=== PATIENT | male | born 1960 | race Caucasian/White ===

== ENCOUNTER 2019-03-03 13:47 | Inpatient (IN) ==
[2019-03-03 14:37] LABS: Basophils # (auto) 0.07 K/uL (0-0.2); Eosinophils % (auto) 1.5 %; Hematocrit (blood only) 41.8 % (42-52); Hemoglobin 14.5 g/dL (14.0-18.0); Immature Granulocytes # (auto) 0.06 K/uL (0.00-0.02); Immature Granulocytes % (auto) 0.9 %; Lymphocytes # (auto) 2.47 K/uL (1.2-3.4); Lymphocytes % (auto) 36.3 %; Mean Corpuscular Hgb Conc 34.7 g/dL (32-36); Mean Corpuscular Volume 94.1 fL (80-100); Mean Platelet Volume 10.3 fL (7.4-10.4); Monocytes # (auto) 0.46 K/uL (0.11-0.59); Monocytes % (auto) 6.8 %; Neutrophils # (auto) 3.65 K/uL (1.4-6.5); Neutrophils % (auto) 53.5 %; Platelet Count 162 K/uL (130-400); RDW Coefficient of Variation 13.7 % (11.5-14.5); RDW Standard Deviation 46.8 fL (36.4-46.3); Red Blood Count 4.44 M/uL (4.7-6.1); White Blood Count 6.81 K/uL (4.8-10.8)
--- NOTE | 2019-03-03 14:47 | XRay Report ---
XR chest 1V portable HISTORY: Atypical Chest Pain COMPARISON: None. FINDINGS: Questionable 1 cm left retrocardiac nodule. Otherwise, the lungs are clear. No pleural effu sions. No pneumothorax. Old, healed left-sided rib fractures. The heart is top normal in size. IMPRESSION: 1. No acute process within the chest. 2. Questionable 1 cm left retrocardiac nodule. Follow-up PA and lateral views of the chest or chest C T are recommended for further evaluation to exclude a pulmonary lesion. Electronically signed by: Bigg Weaver M.D. 03/03/2019 2:46 PM
[2019-03-03 14:56] LABS: Partial Thromboplastin Ratio 0.9; Partial Thromboplastin Time 23.7 Seconds (21.0-31.0); Prothrombin Time 10.5 Seconds (9.0-12.0)
[2019-03-03 14:57] LABS: BUN Creatinine Ratio 17.2 (10-20); Blood Urea Nitrogen 14 mg/dl (7-18); Calcium 8.9 mg/dl (8.5-10.1); Carbon Dioxide 23 mmol/L (21-32); Chloride 110 mmol/L (98-107); Creatinine Clr Calc Pharmacy 118.8 ml/min; Est GFR (African American) 113.9; Est GFR (Non-African American) 98.3; Glucose 152 mg/dl (70-99); Potassium 3.9 mmol/L (3.5-5.1); Sodium 142 mmol/L (136-145)
[2019-03-03 15:02] LABS: Troponin I < 0.015 ng/ml (0-0.045)
--- NOTE | 2019-03-03 15:05 | CT Scan Report ---
CT SCAN OF THE BRAIN WITHOUT IV CONTRAST CLINICAL HISTORY: Fall. COMPARISON STUDY: No priors. TECHNIQUE: Unenhanced axial CT scan of the brain is performed from the vertex to the skull base. A do se lowering technique was utilized adhering to the principles of ALARA. CT DOSE: 537.48 mGy.cm FINDINGS: Brain parenchyma: There is minimal subcortical and periventricular microangiopathic change. Chronic l acunar infarcts are identified in the basal ganglia bilaterally. There is no hemorrhage, mass effect, or evidence of acute territorial ischemia by CT criteria. Cervantes-white matter differentiation is prese rved. No extra-axial fluid collection is seen. Ventricles, sulci, cisterns: Normal in configuration. Intracranial vasculature: There is atherosclerotic calcification of the cavernous carotid arteries. Calvarium: Unremarkable. Sinuses and mastoids: There is evidence of previous paranasal sinus surgery. The visualized paranasal sinuses are clear. The mastoid air cells are well pneumatized. Orbits: The bony orbits are grossly intact. IMPRESSION: There is no hemorrhage, mass effect, or evidence of acute territorial ischemia by CT gerber baron. Electronically signed by: Clovis Randhawa M.D. 03/03/2019 3:04 PM
[2019-03-03 15:13] LABS: D Dimer 740 ug/L FEU (0-500)
[2019-03-03] MEDS ORDERED: OPTIRAY 320 125ml IV PRN (16:15)
--- NOTE | 2019-03-03 16:22 | CT Scan Report ---
CT ANGIOGRAM OF THE CHEST CLINICAL HISTORY: Shortness of breath. Atypical chest pain. Suspected pulmonary embolism. ABNORMAL CH EST X-RAY. RETROCARDIAC NODULE. COMPARISON STUDY: Chest x-ray dated 03/03/2019 TECHNIQUE: Following the IV administration of mL of Optiray-320, CT angiogram of the thorax was perfo rmed from the thoracic inlet to the lung bases utilizing the pulmonary embolus protocol. Images are r eviewed in the axial, sagittal, and coronal planes. IV contrast was administered without complication . MIP imaging was performed. A dose lowering technique was utilized adhering to the principles of AL GREG. CT DOSE: 637.09 mGy.cm FINDINGS: There are suspected early cirrhotic changes within the liver. Mediastinal lymph nodes are the upper limits of normal in size. There is no pathologic axillary or hi lar lymphadenopathy. There are coronary artery calcifications. There was no evidence of thoracic aortic dilatation. There were no pulmonary artery filling defects to indicate acute pulmonary embolism. No pleural effusions are visualized. There was no evidence of focal pulmonary consolidation. IMPRESSION: 1. No acute intrathoracic findings 2. No evidence of acute pulmonary embolism 3. No evidence of acute parenchymal consolidation 4. No retrocardiac masses are visualized 5. Possible early hepatic cirrhosis Electronically signed by: Sin Roca M.D. 03/03/2019 4:21 PM
[2019-03-03] MEDS ORDERED: NITROGLYCERIN SL 0.4 MG/TAB TAB SL STA (17:06)
[2019-03-03] MEDS ORDERED: MoRPHine SULFATE 2 MG/ML CARP IV STA (17:07)
[2019-03-03] MEDS ORDERED: NITROGLYCERIN SL 0.4 MG/TAB TAB SL PRN (17:08)
[2019-03-03] MEDS ORDERED: NITROGLYCERIN SL 0.4 MG/TAB TAB ONE (17:14)
--- NOTE | 2019-03-03 17:28 | History & Physical Report ---
Date of Service March 03, 2019 Assessment & Plan (1) Chest pain: -This is a 58 year old M patient who reports history of coronary artery disease with 3 stents 10 years ago at [facility] and diagnosed with prostate cancer at least 2 years and also followed with [facility] and because he was told of overall poor prostate cancer, the patient became depressed and stopped taking his cardiovascular medications for at least more than 1 year. Patient has not been following with any clinic outpatient doctors. He came to the emergency room because of shortness of breath and chest pain especially on exertion. In the Emergency room, patient had elevate D-dimer but CTA of the chest did not find evidence for pulmonary embolism. Initial troponin negative and EKG normal sinus rhythm and nonischemic. Emergency room physician endorsed to hospitalist physician that patient should be rule out acute coronary syndrome. When assessed by hospitalist, patient then reported chest pain at rest on the bed during interview. Hospitalist ordered nitro sublingual and morphine but before that was given, the patient reported that the pain resolved. 2nd EKG normal and nonischemic. -Patient is a rather poor historian. He cannot tell the medications he was taking in the past. He reports that he has been having shortness of breath and chest pains on and off for 10 years but today it was worse and that is why he came to the hospital. He is breathing on room air. He has bilateral lower extremity edema. -trend troponins, monitor on telemetry -start Lasix 40 mg IV BID -give nitro or morphine prn if chest pain -obtain Transthoracic echocardiogram -discussed with Dr. Keys of Cardiology that if troponins are elevated, then heparin drip should be started -may need to obtain records from [facility] Prostate Cancer -in the past patient reports he follows at [facility] -he reports this is poor prognosis of prostate cancer -monitor urination for now while on Lasix IV without granados Depression leading to medical nonadherence -will ask psychiatry consult, patient agrees to assessment -unclear of alcohol use as outpatient, monitor in case of alcohol withdrawal Blood per rectum -as per patient -send FOBT, monitor Hgb DVT ppx: Lovenox for now Code Status of DNR/DNI as discussed with the patient I, Dr. Tuan Gandara, is admitting hospitalist. My colleague hospitalist Dr. Benson will follow the patient starting on 03/04/19 History of Present Illness This is a 58 year old M patient who reports history of coronary artery disease with 3 stents 10 years ago at [facility] and diagnosed with prosta te cancer at least 2 years and also followed with [facility] and because he was told of overall poor prostate cancer, the patient became depressed and stopped taking his cardiovascular medications for at least more than 1 year. Patient has not been following with any clinic outpatient doctors. He came to the emergency room because of shortness of breath and chest pain especially on exertion. In the Emergency room, patient had elevate D-dimer but CTA of the chest did not find evidence for pulmonary embolism. Initial troponin negative and EKG normal sinus rhythm and nonischemic. Emergency room physician endorsed to hospitalist physician that patient should be rule out acute coronary syndrome. When assessed by hospitalist, patient then reported chest pain at rest on the bed during interview. Hospitalist ordered nitro sublingual and morphine but before that was given, the patient reported that the pain resolved. 2nd EKG normal and nonischemic. Patient is a rather poor historian. He cannot tell the medications he was taking in the past. He reports that he has been having shortness of breath and chest pains on and off for 10 years but today it was worse and that is why he came to the hospital. He is breathing on room air. He has bilateral lower extremity edema. No reported vomiting of fever or headache or loss of consciousness Patient reports due to prostate problems it takes him long time to empty bladder. Denies blood in urine but then he reports blood in stool Primary Care Provider: NO PCP Allergies Allergy/AdvReac Type Severity Reaction Status Date / Time No Known Allergies Allergy Verified 03/03/19 15:24 Home Medications Home Medications Medication Instructions Recorded Confirmed Type No Known Home Medications 03/03/19 03/03/19 History Past Med/Surg History Medical History No significant family history No significant medical problems No significant past medical history No significant past surgical history Prostate cancer Social History Preferred Language: Chadian Feels Safe at Home: No Smoking Status: Former smoker Review of Systems Review of Systems: All systems reviewed & are unremarkable except as noted in HPI & below Physical Exam Constitutional: + obese Eyes: PERRL, conjunctivae normal, anicteric sclerae EOM intact bilaterally ENMT: external ear and nose normal, oropharynx normal Neck: normal visual inspection Respiratory: normal respiratory effort, lungs clear to auscultation Cardiovascular: Rate/Rhythm: regular rate and regular rhythm Gastrointestinal (Abdomen): normal bowel sounds, soft, nontender, no hepatosplenomegaly Musculoskeletal: no cyanosis or clubbing, extremities motor strength 5/5 Head/Neck/Chest: normocephalic and head atraumatic Neurologic: PERRL, EOMI, accommodation nl, no face palsy, no dysarthria CN's II-XI intact bilaterally Psychiatric: A+Ox3, euthymic affect Results & Data Vital Signs (Past 12 Hours) Vital Signs Temp Pulse Pulse Resp BP BP Pulse Ox 03/03/19 17:00 75 24 151/83 H 96 03/03/19 16:30 78 20 109/55 L 94 03/03/19 16:00 72 20 123/45 L 93 03/03/19 15:30 80 25 H 113/73 95 03/03/19 15:04 85 24 130/80 94 03/03/19 14:38 90 20 117/91 94 03/03/19 14:11 94 03/03/19 14:08 94 03/03/19 13:51 37.6 C H 101 H 20 118/70 95
[2019-03-03] MEDS ORDERED: FUROSEMIDE 40 MG in SYRINGE 0 ML IV ONE (17:30)
--- NOTE | 2019-03-03 19:10 | Emergency Department Note ---
Entered by Yanira Wharton acting as a scribe for Federico Austin History of Present Illness General Chief complaint: Shortness of Breath/Dyspnea Stated complaint: ALCOHOL OVERDOSE, CANCER, SUSPECTED HEART ATTACK Time Seen by Provider: 03/03/19 14:08 Source: patient Limitations: no limitations History of Present Illness Provider complaint: Chest Pain Onset (ago): hour(s) Location: chest Radiation: extremity (+Left arm) Maximum Pain Intensity: 8 Current Pain Intensity: 7 Quality: + crushing Associated symptoms: + denies other symptoms (-coughing up blood), + shortness of breath and + other (+blood in stool, +left arm pain ) Treatments prior to arrival: none The patient is a 58 year old male who presents to the Emergency Room with complaints of chest pain that began in the morning prior to arrival while the patient was walking. The patient states that the pain is in the center of his chest and states that it radiates into his left arm. The patient describes his pain as crushing and rates his pain a 7/10 in severity upon arrival. The patient states that he has shortness of breath and blood in his stools. The patient d enies coughing up any blood. The patient states that he has not been taking his heart medications and denies taking nitroglycerin prior to arrival. The patient states that he was drinking prior to arrival and states that he drank 4 beers. The patient states that he is on blood thinners. The patient denies any recent long travels . The patient states that he has a history of prostate cancer. The patient denies smoking tobacco. Home Medications Home Medications Medication Instructions Recorded Confirmed Type No Known Home Medications 03/03/19 03/03/19 History Allergies Allergy/AdvReac Type Severity Reaction Status Date / Time No Known Allergies Allergy Verified 03/03/19 15:24 Past Med/Surg History Medical History No significant family history No significant medical problems No significant past medical history No significant past surgical history Prostate cancer Social History Preferred Language: Lithuanian Feels Safe at Home: No Smoking Status: Former smoker Review of Systems See HPI for pertinent positives & negatives. and A total of 10 systems reviewed and were otherwise negative Physical Exam Vital Signs Vital Signs - 24 hr 03/03/19 13:51 03/03/19 14:08 03/03/19 14:11 Temperature 37.6 C H Temperature Source Oral Sepsis Recent Fever Within 48 Hours No Sepsis New/Unexplained Change in Mental Status No Sepsis Action Taken by Nursing No Action Required Pulse Rate 101 H Pulse Rate [Apical] Pulse Rate from SpO2 Sensor Pulse Rhythm Regular Pulse Strength Normal Respiratory Rate 20 Respiratory Effort / Characteristics Non-Labored Spontaneous Respiratory Depth Normal Respiratory Pattern Regular Blood Pressure 118/70 Blood Pressure [Left Arm] Blood Pressure Mean 86 Blood Pressure Mean [Left Arm] Blood Pressure Position Sitting Blood Pressure Position [Left Arm] Pulse Oximetry 95 94 94 Oxygen Delivery Method Room Air Room Air Room Air 03/03/19 14:38 03/03/19 15:04 03/03/19 15:30 Temperature Temperature Source Sepsis Recent Fever Within 48 Hours Sepsis New/Unexplained Change in Mental Status Sepsis Action Taken by Nursing Pulse Rate 85 80 Pulse Rate [Apical] 90 Pulse Rate from SpO2 Sensor 87 81 Pulse Rhythm Pulse Strength Respiratory Rate 20 24 25 H Respiratory Effort / Characteristics Non-Labored Spontaneous Respiratory Depth Normal Respiratory Pattern Regular Blood Pressure 130/80 113/73 Blood Pressure [Left Arm] 117/91 Blood Pressure Mean 96 86 Blood Pressure Mean [Left Arm] 99 Blood Pressure Position Blood Pressure Position [Left Arm] Lying Pulse Oximetry 94 94 95 Oxygen Delivery Method Room Air Room Air Room Air 03/03/19 16:00 03/03/19 16:30 03/03/19 17:00 Temperature Temperature Source Sepsis Recent Fever Within 48 Hours Sepsis New/Unexplained Change in Mental Status Sepsis Action Taken by Nursing Pulse Rate 72 78 75 Pulse Rate [Apical] Pulse Rate from SpO2 Sensor 72 80 74 Pulse Rhythm Pulse Strength Respiratory Rate 20 20 24 Respiratory Effort / Characteristics Respiratory Depth Respiratory Pattern Blood Pressure 123/45 L 109/55 L 151/83 H Blood Pressure [Left Arm] Blood Pressure Mean 71 73 105 Blood Pressure Mean [Left Arm] Blood Pressure Position Blood Pressure Position [Left Arm] Pulse Oximetry 93 94 96 Oxygen Delivery Method Room Air Room Air Room Air 03/03/19 17:17 03/03/19 17:20 03/03/19 17:25 Temperature Temperature Source Sepsis Recent Fever Within 48 Hours Sepsis New/Unexplained Change in Mental Status Sepsis Action Taken by Nursing Pulse Rate 70 73 77 Pulse Rate [Apical] Pulse Rate from SpO2 Sensor 71 73 77 Pulse Rhythm Pulse Strength Respiratory Rate 21 27 H 25 H Respiratory Effort / Characteristics Respiratory Depth Respiratory Pattern Blood Pressure 138/82 145/84 H 141/79 H Blood Pressure [Left Arm] Blood Pressure Mean 100 104 99 Blood Pressure Mean [Left Arm] Blood Pressure Position Blood Pressure Position [Left Arm] Pulse Oximetry 95 93 92 Oxygen Delivery Method Room Air Room Air Room Air 03/03/19 17:31 03/03/19 17:35 03/03/19 17:41 Temperature Temperature Source Sepsis Recent Fever Within 48 Hours Sepsis New/Unexplained Change in Mental Status Sepsis Action Taken by Nursing Pulse Rate 87 80 71 Pulse Rate [Apical] Pulse Rate from SpO2 Sensor 89 79 71 Pulse Rhythm Pulse Strength Respiratory Rate 28 H 24 21 Respiratory Effort / Characteristics Respiratory Depth Respiratory Pattern Blood Pressure 144/52 H 105/49 L 113/51 L Blood Pressure [Left Arm] Blood Pressure Mean 82 67 71 Blood Pressure Mean [Left Arm] Blood Pressure Position Blood Pressure Position [Left Arm] Pulse Oximetry 92 92 95 Oxygen Delivery Method Room Air Room Air Room Air 03/03/19 17:46 03/03/19 18:00 03/03/19 18:30 Temperature Temperature Source Sepsis Recent Fever Within 48 Hours Sepsis New/Unexplained Change in Mental Status Sepsis Action Taken by Nursing Pulse Rate 75 69 70 Pulse Rate [Apical] Pulse Rate from SpO2 Sensor 74 69 70 Pulse Rhythm Pulse Strength Respiratory Rate 15 21 22 Respiratory Effort / Characteristics Respiratory Depth Respiratory Pattern Blood Pressure 92/54 L 118/53 L 130/51 L Blood Pressure [Left Arm] Blood Pressure Mean 66 74 77 Blood Pressure Mean [Left Arm] Blood Pressure Position Blood Pressure Position [Left Arm] Pulse Oximetry 93 92 94 Oxygen Delivery Method Room Air Room Air Room Air Physical Exam GENERAL: He is oriented to person, place, and time. He appears well-developed an d well-nourished. He does not appear distressed. HENT: Exam performed. - Head: Normocephalic and atraumatic. - Right Ear: External ear normal. No mastoid tenderness. - Left Ear: External ear normal. No mastoid tenderness. - Mouth/Throat: The oropharynx is clear and moist. No trismus in the jaw. No dental abscesses or uvula swelling. No oropharyngeal exudate or tonsillar abscesses. EYES: Conjunctivae and EOM are normal. Pupils are equal, round, and reactive to light. Right eye exhibits no discharge. Left eye exhibits no discharge. No scleral icterus. NECK: Normal range of motion. Neck supple. No JVD present. No spinous process tenderness present. No carotid bruit present. No rigidity. No tracheal deviation and normal range of motion present. No Brudzinski's sign and no Kernig's sign noted. CV: Normal rate, regular rhythm, normal heart sounds and intact distal pulses. There is no peripheral edema. Palpable radial pulses bue. PULM/CHEST: Effort normal and breath sounds normal. No respiratory distress. No stridor. He has no wheezes. He has no rales. - Chest Wall: He exhibits no tenderness. ABD: The abdomen is soft. Bowel sounds are normal. He has no distension. No mass is present. There is no tenderness. There is no rebound, no guarding, no Jesus's sign and no tenderness at McBurney's point. Rovsig negative MUSC/SKEL: Normal range of motion. There is no peripheral edema, tenderness or deformity. LYMPH: No cervical adenopathy. NEURO: He is alert and oriented to person, place, and time. He has normal strength. No cranial nerve deficit or sensory deficit. Coordination and gait normal. GCS eye subscore is 4. GCS verbal subscore is 5. GCS motor subscore is 6. cerbellar tests wnl. SKIN: Skin is warm and dry. He is not diaphoretic. PSYCH: He has a normal mood and affect. His behavior is normal. Judgment and thought content normal. Course 1409: The patient was evaluated in room A11A, and a complete history and physical examination were performed. 1500: I checked on the patient and updated him on his results. The patient's vital signs are stable. The patient's labs are within normal limits besides an elevated DDIMER. The patient will receive a CTA to rule out PE 1600: CTA of the chest within normal limits. The patient denies having any chest pain at this time. The patient states that he is still having some exertional dyspnea. I asked the patient if he would like to be monitored inpatient to rule out ACS and the patient stated that he would like to do that. I discussed the patient's case with Dr. Tuan Quinteros [facility] who accepts the patient for admission. The patient will be admitted for chest pain and dyspnea. The updated the patient on the treatment plan and he was in ag reement. The patient's vital signs and labs were within normal limits upon admission. Consultations Consultation #1: Dr. Tuan Quinteros [facility] Time: 16:00 Administered Medications Ioversol (Optiray 320 125ml) 100 ml IV ONCE PRN PRN Reason: Interaction Checking Stop: 03/07/19 16:14 Last Admin: 03/03/19 16:15 Dose: 100 ml Documented by: [id number] Discontinued Medications Morphine Sulfate (Morphine Sulfate) 2 mg IV NOW STA Stop: 03/03/19 17:08 Last Admin: 03/03/19 17:26 Dose: 2 mg Documented by: [id number] Nitroglycerin (Nitrostat) 0.4 mg SL NOW STA Stop: 03/03/19 17:07 Last Admin: 03/03/19 17:26 Dose: Not Given Documented by: [id number] Nitroglycerin (Nitrostat) Confirm Administered Dose 0.4 mg .ROUTE .STK-MED ONE Stop: 03/03/19 17:15 Last Admin: 03/03/19 17:17 Dose: 0.4 mg Documented by: [id number] Medical Decision Making Medical Records Attestation: I reviewed the patient's medical records. Home Medications Current Medication List: was personally reviewed by me Laboratory Data Attestation: I reviewed the patient's lab results. Result diagrams: 03/03/19 14:17 03/03/19 14:17 Lab Results 03/03/19 03/03/19 03/03/19 Range/Units 14:17 14:17 14:17 WBC 6.81 (4.8-10.8) K/uL RBC 4.44 L (4.7-6.1) M/uL Hgb 14.5 (14.0-18.0) g/dL Hct 41.8 L (42-52) % MCV 94.1 (80-100) fL MCH 32.7 (25-34) pg MCHC 34.7 (32-36) g/dL RDW Std Deviation 46.8 H (36.4-46.3) fL RDW Coeff of Steve 13.7 (11.5-14.5) % Plt Count 162 (130-400) K/uL MPV 10.3 (7.4-10.4) fL Immature Gran % (Auto) 0.9 % Neut % (Auto) 53.5 % Lymph % (Auto) 36.3 % [place] % (Auto) 6.8 % Eos % (Auto) 1.5 % Baso % (Auto) 1.0 % Immature Gran # (Auto) 0.06 H (0.00-0.02) K/uL Neut # (Auto) 3.65 (1.4-6.5) K/uL Lymph # (Auto) 2.47 (1.2-3.4) K/uL [place] # (Auto) 0.46 (0.11-0.59) K/uL Eos # (Auto) 0.10 (0-0.5) K/uL Baso # (Auto) 0.07 (0-0.2) K/uL PT 10.5 (9.0-12.0) Seconds INR 1.0 (0.9-1.1) APTT 23.7 (21.0-31.0) Seconds PTT Ratio 0.9 D-Dimer 740 H* (0-500) ug/L FEU Sodium 142 (136-145) mmol/L Potassium 3.9 (3.5-5.1) mmol/L Chloride 110 H (98-107) mmol/L Carbon Dioxide 23 (21-32) mmol/L Anion Gap 9.0 (3-11) BUN 14 (7-18) mg/dl Creatinine 0.79 (0.6-1.4) mg/dl Est Cr Clr Drug Dosing 118.8 ml/min Est GFR ( Amer) 113.9 Est GFR (Non-Af Amer) 98.3 BUN/Creatinine Ratio 17.2 (10-20) Glucose 152 H (70-99) mg/dl Calcium 8.9 (8.5-10.1) mg/dl Troponin I < 0.015 (0-0.045) ng/ml Lipase 203 (73-393) U/L 03/03/19 Range/Units 17:21 WBC (4.8-10.8) K/uL RBC (4.7-6.1) M/uL Hgb (14.0-18.0) g/dL Hct (42-52) % MCV (80-100) fL MCH (25-34) pg MCHC (32-36) g/dL RDW Std Deviation (36.4-46.3) fL RDW Coeff of Steve (11.5-14.5) % Plt Count (130-400) K/uL MPV (7.4-10.4) fL Immature Gran % (Auto) % Neut % (Auto) % Lymph % (Auto) % [place] % (Auto) % Eos % (Auto) % Baso % (Auto) % Immature Gran # (Auto) (0.00-0.02) K/uL Neut # (Auto) (1.4-6.5) K/uL Lymph # (Auto) (1.2-3.4) K/uL [place] # (Auto) (0.11-0.59) K/uL Eos # (Auto) (0-0.5) K/uL Baso # (Auto) (0-0.2) K/uL PT (9.0-12.0) Seconds INR (0.9-1.1) APTT (21.0-31.0) Seconds PTT Ratio D-Dimer (0-500) ug/L FEU Sodium (136-145) mmol/L Potassium (3.5-5.1) mmol/L Chloride (98-107) mmol/L Carbon Dioxide (21-32) mmol/L Anion Gap (3-11) BUN (7-18) mg/dl Creatinine (0.6-1.4) mg/dl Est Cr Clr Drug Dosing ml/min Est GFR ( Amer) Est GFR (Non-Af Amer) BUN/Creatinine Ratio (10-20) Glucose (70-99) mg/dl Calcium (8.5-10.1) mg/dl Troponin I < 0.015 (0-0.045) ng/ml Lipase (73-393) U/L Imaging Data Radiologist's Impression: Radiology results as stated below per my review and the radiologist's interpretation: XR chest 1V portable HISTORY: Atypical Chest Pain COMPARISON: None. FINDINGS: Questionable 1 cm left retrocardiac nodule. Otherwise, the lungs are clear. No pleural effusions. No pneumothorax. Old, healed left-sided rib fractures. The heart is top normal in size. IMPRESSION: 1. No acute process within the chest. 2. Questionable 1 cm left retrocardiac nodule. Follow-up PA and lateral views of the chest or chest CT are recommended for further evaluation to exclude a pulmonary lesion. Electronically signed by: Bigg Weaver M.D. 03/03/2019 2:[address] SCAN OF THE BRAIN WITHOUT IV CONTRAST CLINICAL HISTORY: Fall. COMPARISON STUDY: No priors. TECHNIQUE: Unenhanced axial CT scan of the brain is performed from the vertex to the skull base. A dose lowering technique was utilized adhering to the principles of ALARA. CT DOSE: 537.48 mGy.cm FINDINGS: Brain parenchyma: There is minimal subcortical and periventricular microangiopathic change. Chronic lacunar infarcts are identified in the basal ganglia bilaterally. There is no hemorrhage, mass effect, or evidence of acute territorial ischemia by CT criteria. Cervantes-white matter differentiation is preserved. No extra-axial fluid collection is seen. Ventricles, sulci, cisterns: Normal in configuration. Intracranial vasculature: There is atherosclerotic calcification of the cavernous carotid arteries. Calvarium: Unremarkable. Sinuses and mastoids: There is evidence of previous paranasal sinus surgery. The visualized paranasal sinuses are clear. The mastoid air cells are well pneumatized. Orbits: The bony orbits are grossly intact. IMPRESSION: There is no hemorrhage, mass effect, or evidence of acute territorial ischemia by CT criteria. Electronically signed by: Clovis Randhawa M.D. 03/03/2019 3:[address] ANGIOGRAM OF THE CHEST CLINICAL HISTORY: Shortness of breath. Atypical chest pain. Suspected pulmonary embolism. ABNORMAL CHEST X-RAY. RETROCARDIAC NODULE. COMPARISON STUDY: Chest x-ray dated 03/03/2019 TECHNIQUE: Following the IV administration of mL of Optiray-320, CT angiogram of the thorax was performed from the thoracic inlet to the lung bases utilizing the pulmonary embolus protocol. Images are reviewed in the axial, sagittal, and coronal planes. IV contrast was administered without complication. MIP imaging was performed. A dose lowering technique was utilized adhering to the principles of ALARA. CT DOSE: 637.09 mGy.cm FINDINGS: There are suspected early cirrhotic changes within the liver. Mediastinal lymph nodes are the upper limits of normal in size. There is no pathologic axillary or hilar lymphadenopathy. There are coronary artery calcifications. There was no evidence of thoracic aortic dilatation. There were no pulmonary artery filling defects to indicate acute pulmonary embolism. No pleural effusions are visualized. There was no evidence of focal pulmonary consolidation. IMPRESSION: 1. No acute intrathoracic findings 2. No evidence of acute pulmonary embolism 3. No evidence of acute parenchymal consolidation 4. No retrocardiac masses are visualized 5. Possible early hepatic cirrhosis Electronically signed by: Sin Roca M.D. 03/03/2019 4:21 PM ECG Data Attestation: I personally reviewed and interpreted this ECG as follows: Indication: SOB/dyspnea Rate (beats per minute): 97 Rhythm: sinus rhythm Findings: + other (QRS and QTC intervals within normal limits); no ST depression and no ST elevation Blood Pressure Blood Pressure Findings: Low blood pressure Blood Pressure Disposition: did not require urgent referral MDM Narrative 1409: The patient was evaluated in room A11A, and a complete history and physical examination were performed. 1500: I checked on the patient and updated him on his results. The patient's vital signs are stable. The patient's labs are within normal limits besides an elevated DDIMER. The patient will receive a CTA to rule out PE 1600: CTA of the chest within normal limits. The patient denies having any chest pain at this time. The patient states that he is still having some exertional dyspnea. I asked the patient if he would like to be monitored inpatient to rule out ACS and the patient stated that he would like to do that. I discussed the patient's case with Dr. Tuan Quinteros [facility] who accepts the patient for admission. The patient will be admitted for chest pain and dyspnea. The updated the patient on the treatment plan and he was in agreement. The patient's vital signs and labs were within normal limits upon admission. Impression & Plan Chest pain, Dyspnea Discharge Plan Visit Data Chief Complaint: Shortness of Breath/Dyspnea Stated Complaint: ALCOHOL OVERDOSE, CANCER, SUSPECTED HEART ATTACK ED Provider: Federico Austni Discharge Problem: Chest pain, Dyspnea Patient Disposition: Admitted As Inpatient Forms Stand Alone Forms: My Resolver Prescriptions Prescriptions: No Action No Known Home Medications RF: 0 Referrals Referrals: PCP,NO [Primary Care Provider] - Discharge Problem: Chest pain Qualifiers: Chest pain type: unspecified Qualified Code(s): R07.9 - Chest pain, unspecified Dyspnea Qualifiers: Dyspnea type: dyspnea on exertion Qualified Code(s): R06.09 - Other forms of dyspnea The scribe's documentation has been prepared under my direction and personally reviewed by me in its entirety. I confirm that the note above accurately reflects all work, treatment, procedures, and medical decision making performed by me.
[2019-03-03] MEDS: ENOXAPARIN INJ 40 MG/0.4 ML SYR SQ SCH (21:21)
[2019-03-04] MEDS: MoRPHine SULFATE 2 MG/ML CARP IV PRN ×3 (00:22→22:25)
[2019-03-04 06:28] LABS: Basophils # (auto) 0.05 K/uL (0-0.2); Basophils % (auto) 0.5 %; Eosinophils # (auto) 0.08 K/uL (0-0.5); Eosinophils % (auto) 0.8 %; Hematocrit (blood only) 43.2 % (42-52); Hemoglobin 15.2 g/dL (14.0-18.0); Immature Granulocytes # (auto) 0.03 K/uL (0.00-0.02); Immature Granulocytes % (auto) 0.3 %; Lymphocytes # (auto) 1.83 K/uL (1.2-3.4); Lymphocytes % (auto) 19.3 %; Mean Corpuscular Hgb Conc 35.2 g/dL (32-36); Mean Corpuscular Volume 94.9 fL (80-100); Mean Platelet Volume 10.3 fL (7.4-10.4); Monocytes # (auto) 0.83 K/uL (0.11-0.59); Monocytes % (auto) 8.7 %; Neutrophils # (auto) 6.67 K/uL (1.4-6.5); Neutrophils % (auto) 70.4 %; Platelet Count 139 K/uL (130-400); Platelet Estimate Decreased (Normal); RDW Coefficient of Variation 13.8 % (11.5-14.5); RDW Standard Deviation 47.2 fL (36.4-46.3); Red Blood Count 4.55 M/uL (4.7-6.1); White Blood Count 9.49 K/uL (4.8-10.8)
[2019-03-04 06:33] LABS: Alanine Aminotransferase 29 U/L (12-78); Albumin Level 3.5 gm/dl (3.4-5.0); Aspartate Aminotransferase 24 U/L (15-37); Blood Urea Nitrogen 19 mg/dl (7-18); Calcium 8.6 mg/dl (8.5-10.1); Carbon Dioxide 24 mmol/L (21-32); Chloride 105 mmol/L (98-107); Creatinine Clr Calc Pharmacy 120.3 ml/min; Est GFR (African American) 114.5; Est GFR (Non-African American) 98.8; Glucose 118 mg/dl (70-99); Magnesium 1.9 mg/dl (1.8-2.4); Potassium 3.8 mmol/L (3.5-5.1); Sodium 139 mmol/L (136-145)
[2019-03-04 06:38] LABS: Albumin Globulin Ratio 0.7 (0.9-2); Alkaline Phosphatase 179 U/L (45-117); Bilirubin,Total 0.6 mg/dl (0.2-1); Globulin 4.8 gm/dl (2.5-4.0); Total Protein 8.3 gm/dl (6.4-8.2); Troponin I < 0.015 ng/ml (0-0.045)
[2019-03-04] MEDS: FUROSEMIDE 40 MG in SYRINGE 0 ML IV SCH ×2 (07:59→20:47)
[2019-03-04 09:16] LABS: Appearance Urine Clear (Clear); Bilirubin Urine Negative (Negative); Blood Urine Negative (Negative); Color Urine Dark Yellow; Glucose Urine UA Negative (Negative); Ketones Urine Trace (Negative); Leukocyte Esterase Urine Negative (Negative); Nitrite Urine Negative (Negative); Protein Urine Negative (Negative); Specific Gravity Urine 1.032 (1.000-1.030); Urobilinogen Urine Negative (Negative)
[2019-03-04] MEDS ORDERED: METOPROLOL TARTRATE 25 MG TAB PO STA (10:28)
--- NOTE | 2019-03-04 10:33 | Cardiology Consultation ---
Date of Consultation March 04, 2019 Assessment & Plan (1) Chest pain: Patient with recent symptoms concerning for increasing angina pectoris with known coronary artery disease patient off all cardiac medications due to deliberate withdrawal. No signs of injury by EKG or cardiac enzymes preliminary echocardiogram with preserved to hyperdynamic LV systolic function Reinstitute guideline directed medical regimen. Add beta-emir, nitrates aspirin and MIRELLA inhibitor Hold diuretic after second dose this evening If symptoms persist after treatment will risk stratify to stress test versus repeat diagnostic cardiac catheterization. Prior medical records requested for review (2) Angina pectoris: (3) Hypertension: History of Present Illness Reason for Consultation: Angina pectoris Requesting Physician: Dr. Gandara Attending Physician: Kindra Benson History of Present Illness Patient is a 58-year-old male resident of [place], [place] currently staying with his son in [place]. He carries an underlying history of prior coronary disease with prior myocardial infarction and coronary stenting x3 (same setting) greater than 10 years past. Underlying medical problems include a history of hypertension hyperlipidemia and metastatic prostate carcinoma status post radiation therapy Patient presents now noting symptoms of several weeks duration of increasing exertional dyspnea edema and chest pressure with activity. He notes having been given the diagnosis of an incurable prostate carcinoma and and in a depressive response stopped all medications including cardiac medications several months past. Symptoms however progressed yesterday as described and he presented to emergency room with symptoms of worsening shortness of breath and chest pressure relieved with sublingual nitroglycerin. Initial EKGs cardiac enzymes are negative for ischemia or injury Patient denies currently fevers chills or productive cough. Weight has been trending upward. Has been aware of some peripheral edema worse over the last week's time. Notes no headache or visual changes though is having significant back and neck pain. Notes no overt hematuria but has had some urinary slowing. Does admit to blood in stools after radiation therapy. He denies history of prior rheumatic fever scarlet fever. Notes no history of congestive heart failure, obstructive sleep apnea though with patient noting sleep disruption Allergies Allergy/AdvReac Type Severity Reaction Status Date / Time No Known Allergies Allergy Verified 03/03/19 15:24 Home Medications Home Medications Medication Instructions Recorded Confirmed Type No Known Home Medications 03/03/19 03/03/19 History Patient History Medical History No significant family history No significant medical problems No significant past medical history No significant past surgical history Prostate cancer Social History Preferred Language: Divehi Communication Ability: Effective Expense Analyst Required: No Beliefs That Will Affect Care: None Current Living Situation: Family Feels Safe at Home: Yes Smoking Status: Former smoker Hx Alcohol Use: Yes Alcohol type: beer Hx Substance Use: No Review of Systems Review of Systems: All systems reviewed & are unremarkable except as noted in HPI & below Physical Exam Constitutional: WD/WN, vitals as above + obese Eyes: PERRL, conjunctivae normal, anicteric sclerae ENMT: external ear and nose normal, oropharynx normal Neck: trachea midline, no thyromegaly Thick Respiratory: normal respiratory effort Auscultation: + diminished lung sounds Cardiovascular: Rate/Rhythm: regular rate and regular rhythm Heart Sounds: normal S1 and normal S2; no gallop and no murmur Palpation: normal PMI Vessels: normal carotid upstroke and radial pulses present; no JVD and no carotid bruit Extremities: + edema (1+ bilateral lower extremity) Gastrointestinal (Abdomen): normal bowel sounds, soft, nontender, no hepatosplenomegaly Musculoskeletal: no cyanosis or clubbing, extremities motor strength 5/5 Skin: no rashes, warm and dry Neurologic: PERRL, EOMI, accommodation nl, no face palsy, no dysarthria Psychiatric: Orientation: alert and oriented x 3 Mood: + depressed mood Results & Data Vital Signs (Past 12 Hours) Vital Signs Temp Pulse Pulse Resp BP Pulse Ox 03/04/19 07:39 85 03/04/19 07:36 36.6 C 82 18 151/88 H 95 03/04/19 05:47 36.7 C 90 19 149/80 H 91 03/04/19 01:04 85 03/03/19 23:00 36.8 C 86 21 128/74 95 03/03/19 22:44 78 Laboratory Results Laboratory Results - last 24 hr 03/03/19 03/03/19 03/03/19 14:17 14:17 14:17 WBC 6.81 RBC 4.44 L Hgb 14.5 Hct 41.8 L MCV 94.1 MCH 32.7 MCHC 34.7 RDW Std Deviation 46.8 H RDW Coeff of Steve 13.7 Plt Count 162 MPV 10.3 Immature Gran % (Auto) 0.9 Neut % (Auto) 53.5 Lymph % (Auto) 36.3 Irion % (Auto) 6.8 Eos % (Auto) 1.5 Baso % (Auto) 1.0 Immature Gran # (Auto) 0.06 H Neut # (Auto) 3.65 Lymph # (Auto) 2.47 Irion # (Auto) 0.46 Eos # (Auto) 0.10 Baso # (Auto) 0.07 Platelet Estimate PT 10.5 INR 1.0 APTT 23.7 PTT Ratio 0.9 D-Dimer 740 H* Sodium 142 Potassium 3.9 Chloride 110 H Carbon Dioxide 23 Anion Gap 9.0 BUN 14 Creatinine 0.79 Est Cr Clr Drug Dosing 118.8 Est GFR ( Amer) 113.9 Est GFR (Non-Af Amer) 98.3 BUN/Creatinine Ratio 17.2 Glucose 152 H Calcium 8.9 Magnesium Total Bilirubin AST ALT Alkaline Phosphatase Troponin I < 0.015 Total Protein Albumin Globulin Albumin/Globulin Ratio Lipase 203 Urine Color Urine Appearance Urine pH Ur Specific [place] Urine Protein Urine Glucose (UA) Urine Ketones Urine Blood Urine Nitrite Urine Bilirubin Urine Urobilinogen Ur Leukocyte Esterase 03/03/19 03/03/19 03/04/19 17:21 23:14 05:20 WBC 9.49 RBC 4.55 L Hgb 15.2 Hct 43.2 MCV 94.9 MCH 33.4 MCHC 35.2 RDW Std Deviation 47.2 H RDW Coeff of Steve 13.8 Plt Count 139 MPV 10.3 Immature Gran % (Auto) 0.3 Neut % (Auto) 70.4 Lymph % (Auto) 19.3 [place] % (Auto) 8.7 Eos % (Auto) 0.8 Baso % (Auto) 0.5 Immature Gran # (Auto) 0.03 H Neut # (Auto) 6.67 H Lymph # (Auto) 1.83 Irion # (Auto) 0.83 H Eos # (Auto) 0.08 Baso # (Auto) 0.05 Platelet Estimate Decreased L PT INR APTT PTT Ratio D-Dimer Sodium Potassium Chloride Carbon Dioxide Anion Gap BUN Creatinine Est Cr Clr Drug Dosing Est GFR ( Amer) Est GFR (Non-Af Amer) BUN/Creatinine Ratio Glucose Calcium Magnesium Total Bilirubin AST ALT Alkaline Phosphatase Troponin I < 0.015 < 0.015 Total Protein Albumin Globulin Albumin/Globulin Ratio Lipase Urine Color Urine Appearance Urine pH Ur Specific [place] Urine Protein Urine Glucose (UA) Urine Ketones Urine Blood Urine Nitrite Urine Bilirubin Urine Urobilinogen Ur Leukocyte Esterase 03/04/19 03/04/19 05:20 08:45 WBC RBC Hgb Hct MCV MCH MCHC RDW Std Deviation RDW Coeff of Steve Plt Count MPV Immature Gran % (Auto) Neut % (Auto) Lymph % (Auto) [place] % (Auto) Eos % (Auto) Baso % (Auto) Immature Gran # (Auto) Neut # (Auto) Lymph # (Auto) [place] # (Auto) Eos # (Auto) Baso # (Auto) Platelet Estimate PT INR APTT PTT Ratio D-Dimer Sodium 139 Potassium 3.8 Chloride 105 Carbon Dioxide 24 Anion Gap 10.0 BUN 19 H Creatinine 0.78 Est Cr Clr Drug Dosing 120.3 Est GFR ( Amer) 114.5 Est GFR (Non-Af Amer) 98.8 BUN/Creatinine Ratio 24.0 H Glucose 118 H Calcium 8.6 Magnesium 1.9 Total Bilirubin 0.6 AST 24 ALT 29 Alkaline Phosphatase 179 H Troponin I < 0.015 Total Protein 8.3 H Albumin 3.5 Globulin 4.8 H Albumin/Globulin Ratio 0.7 L Lipase Urine Color Dark Yellow Urine Appearance Clear Urine pH 5.0 Ur Specific [place] 1.032 H Urine Protein Negative Urine Glucose (UA) Negative Urine Ketones Trace H Urine Blood Negative Urine Nitrite Negative Urine Bilirubin Negative Urine Urobilinogen Negative Ur Leukocyte Esterase Negative ECG Additional Comments: 04-MAR-2019 09:10:23 [facility] ROUTINE RETRIEVAL Sinus rhythm with Premature atrial complexes Otherwise normal ECG When compared with ECG of 03-MAR-2019 17:22, (unconfirmed) Premature atrial complexes are now Present (1) Chest pain Chest pain type: unspecified Qualified Code(s): R07.9 - Chest pain, unspecified
--- NOTE | 2019-03-04 10:39 | Hospitalist Progress Note ---
Date of Service March 04, 2019 Assessment & Plan (1) Chest pain: This is a 58 year old M patient who reports history of coronary artery disease with 3 stents 10 years ago at [facility] and diagnosed with prostate cancer at least 2 years and also followed with [facility] and because he was told of overall poor prostate cancer, the patient became depressed and stopped taking his cardiovascular medications for at least more than 1 year. Patient has not been following with any clinic outpatient doctors. He came to the emergency room because of shortness of breath and chest pain especially on exertion. STABLE ANGINA In setting of coronary artery disease with 3 stents in late 30s, stop taking all his medications 1 to 2 years ago and follow-ups with all physicians as got depressed with diagnosis of prostate cancer and treatment was not working per him. -EKG- No acute ischemic changes, Troponin x 4 negative. -Echo- Pending. -Will start him on cardiovascular medications per guidelines for CAD per cardiology -On IV lasix 40 mg bid since admission --> will cut down -Records from [facility] requested. Does not recall his medications PROSTATE CARCINOMA, Untreated and Lost to follow up -In the past patient reports he followed at [facility] , Cancer center -He reports that he was told he had poor prognosis and radiation/treatment was not effective and had side effects so decided to stop following up and stop all his medications. Do not have any records-requested. -CT chest- No mets, MRI spine ordered to rule out mets BACK PAIN Low back pain ongoing for many months. Concerned about metastasis with untreated prostate carcinoma as IV morphine not helping with the pain -MRI spine ordered DEPRESSION -Psychiatry was consulted -unclear of alcohol use as outpatient. CT shows early hepatic cirrhosis Blood per rectum ? -as per patient -FOBT sent DVT ppx: Lovenox for now Code Status of DNR/DNI as discussed with the patient Disposition Medical mx in progress Discussed case with cardiology Results & Data Vital Signs (Past 12 Hours) Vital Signs Temp Pulse Pulse Resp BP Pulse Ox 03/04/19 07:39 85 03/04/19 07:36 36.6 C 82 18 151/88 H 95 03/04/19 05:47 36.7 C 90 19 149/80 H 91 03/04/19 01:04 85 03/03/19 23:00 36.8 C 86 21 128/74 95 03/03/19 22:44 78
[2019-03-04] MEDS: ISOSORBIDE MONO EXTENDED REL 30 MG TABCR PO SCH (11:08)
[2019-03-04] MEDS ORDERED: OXYCODONE/ACETAMINOPHEN 5mg/325mg TAB ONE (11:38)
[2019-03-04] MEDS ORDERED: GADOBUTROL 65ML VIAL IV PRN (12:26)
--- NOTE | 2019-03-04 14:14 | Magnetic Resonance Report ---
MRI OF THE LUMBAR SPINE COMBO CLINICAL HISTORY: Prostate cancer. Low back pain and right lower extremity radiculopathy. COMPARISON STUDY: No priors. TECHNIQUE: MRI of the lumbar spine is performed utilizing various T1 and T2-weighted sequences in the axial and sagittal planes. Contrast-enhanced sequences are acquired following the IV administration of 10 cc of Gadavist. FINDINGS: Lumbar spine: Vertebral body height and alignment are maintained throughout the lumbar spine. There i s marked fatty marrow replacement seen within the body of L5 and the sacrum, likely related to previo us radiation treatment. The transverse and spinous processes appear intact. There is no evidence of s pondylolysis. No destructive bony lesion is seen. No enhancing lesions are seen on the postcontrast s equence. A large hemangioma is noted in the body of L1. Mild chronic degenerative endplate change is seen at all lumbar levels. No significant endplate edema is identified. Vertebral discs: Degenerative disc desiccation is seen at from L3-L4 through L5-S1. There is mild los s of height at L4-L5. Spinal cord: The visualized spinal cord is normal in morphology and signal intensity. The conus medul paulina terminates at the T12-L1 interspace. No abnormal postcontrast enhancement is identified. L1-L2: Unremarkable. L2-L3: Unremarkable. L3-L4: There is minimal posterior disc bulge and annular fissure. The central canal and neural forami na are patent. L4-L5: There is minimal posterior disc bulge. The central canal and neural foramina are patent. Facet joint effusions are observed. Mild facet arthropathy is of no consequence. L5-S1: There is no disc herniation or central canal stenosis. Mild facet arthropathy is of no consequ ence. The neural foramina are patent. Facet joint effusions are noted. Sacrum: As noted above, there is significant fatty marrow change seen within the sacrum. No destructi ve sacral lesion is identified. Soft tissues: The paraspinous soft tissues are normal in appearance. No retroperitoneal lymphadenopat hy is seen. There is mild ectasia of the distal abdominal aorta. IMPRESSION: 1. There is no disc herniation or central canal stenosis. 2. Minimal spondylotic change and degenerative disc disease as above. See discussion for detailed lev el by level analysis. 3. No destructive bony lesion is identified. 4. Fatty marrow change within the body of L5 and the sacrum suggests previous radiation treatment. Cl inical correlation will be required. Dictated: 03/04/2019 1:25 PM Transcribed: 03/04/2019 1:47 PM [facility] [id number] [facility] Electronically signed by: Clovis Randhawa M.D. 03/04/2019 2:13 PM
--- NOTE | 2019-03-04 16:00 | Psychiatric Consultation ---
Date of Consultation March 04, 2019 Impression / Recommendations Impression 58-year-old male admitted medically on 03/03/19 due to chest pain, shortness of breath, and blood in stool. He was reportedly diagnosed with prostate cancer at least 2 years ago, with what is reported to be a poor prognosis. It is stated that this diagnosis contributed to poor medication compliance with his cardiovascular medications. Pt does endorse depressive symptoms which have been ongoing for several years. Low mood and racing thoughts reportedly contribute to difficulty sleeping, one of the patient's other large concerns. Pt verbalized willingness for medication initiation. We reviewed possibility for mirtazapine, as a single medication to treat patient's current symptoms - however, patient reports increased appetite recently and concern for additional weight gain. We then reviewed the possibility of initiating fluoxetine in order to target depression, anxiety, and low energy. Risks, benefits, and potential side effects were reviewed with the patient. He verbalized understanding and is agreeable with plan to initiate 20mg tomorrow morning. Regarding difficulty sleeping, patient is agreeable to trial of hydroxyzine 50mg for sleep, and will offer repeat dose if necessary. Pt denies SI/HI, A/V hallucinations, and other psychotic symptoms. There is no indication for inpatient psychiatric treatment. We will facilitate arrangement of psychiatric aftercare as desired, as patient verbalizes willingness to consider referrals for psychiatric prescriber and therapist. Dr. Yaron Luna was directly involved in review and discussion of the patient's case and participated in medical decision making regarding treatment recommendations. Plan: - Initiate fluoxetine 20mg qAM - Initiate hydroxyzine 50mg qHS, with repeat dose available if needed - Facilitate referrals for psychiatric prescriber and therapist - No indication for inpatient psychiatric treatment Risk Factors Assessment Do You Have Access To A Gun?: No CPT Code Initial Consultation: [id number] Psych History Identifying Data Neto Rios is a 58-year-old male admitted medically on 03/03/19 due to chest pain, shortness of breath, and blood in his stools. Pt was diagnosed with prostate cancer at least two years ago, reportedly leading to poor compliance with his cardiovascular medications. Psychiatric consultation is requested to evaluate for depression. Chief Complaint "I came here for my heart, I was having chest pains." History of Present Illness Neto Rios is a 58-year-old male admitted medically on 03/04/19 due to chest pain and shortness of breath. Pt was diagnosed with prostate cancer at least two years ago, and was reportedly given a poor prognosis. It is reported patient has not been compliant with cancer treatments or with his cardiovascular medications. There is reported concern for depression, and whether this is contributing to noncompliance. Psychiatric consultation is requested to e valuate for depression. Pt states that he has had significant difficulty with his diagnosis, as he verbalizes having to watch his brother of cancer at the same age as the patient is now. Pt states he was told "the cancer was treatable, so they gave me 9 weeks of radiation and these hormone pills, and nothing change. I wish they would have told me it couldn't be cured before I spent so much time feeling like sh*t." Pt states he has been "depressed, ever since they couldn't cure me. I just gave up." Earlier in his diagnosis, he states he had experienced SI, resulting in taking a "hacksaw" to his wrist [showing this provider the transverse scars to his distal forearm], but "chickened out before the last cut." Pt states that he has not felt suicidal since, but does verbalize hopeles sness. Pt verbalizes depressive symptoms of low mood, anhedonia, decreased energy, limited motivation, increased appetite, and difficulty sleeping. Pt states he gets about 3-4 hours of sleep per night, and often finds himself struggling with racing thoughts that prevent a restful sleep. Pt states this has been the case for years. He states he had previously received Ambien for sleep, but found it ineffective for calming his racing thoughts. Pt does admit to use of alcohol to "cover up" his depression, reporting 10-15 alcoholic beverages per day (indicating this is drastically reduced from the time in which he was living independently in [place]). Pt now lives with his son in [place], and is not established with medical providers in the area. He is agreeable to taking psychiatric medications, and would be willing for referral for outpatient medication management and/or therapy. Past Psychiatric History Previous Psych History: None, has previously received medications to help with difficulty sleeping Current Psychiatric Diagnosis: None Outpatient Services: None Previous Psych Admissions: None Do You Have Access To A Gun?: No History of Previous Suicide Attempt: Yes (self-inflicted laceration, "chickened out before the last cut") Past Medication Trials: For sleeping difficulty - Ambien Allergies Allergy/AdvReac Type Severity Reaction Status Date / Time No Known Allergies Allergy Verified 03/03/19 15:24 Home Medications Home Medications Medication Instructions Recorded Confirmed Type No Known Home Medications 03/03/19 03/03/19 History Family History Father - alcoholism Substance Abuse History Pt verbalizes current alcohol intake of 10-15 beer per week - reports use in order to cover up depressive symptoms Personal History Living Arrangements: Home (with son, son's girlfriend + 3 children ) Born In: [place] Highest Grade Completed: Did Not Graduate High School (10th grade) Employment Status: Retired Marital Status: (x 2 years) Number Of Children: 2 children; son in [place], daughter in [place] Beliefs That Will Affect Care: None History of Legal Problems: Denies Psychological Trauma History Comment: Denies history of abuse; several losses - of both brothers and father Patient History Medical History No significant family history No significant medical problems No significant past medical history No significant past surgical history Prostate cancer Social History Preferred Language: Slovenian Communication Ability: Effective Transit Mixer 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 Required: No Beliefs That Will Affect Care: None Current Living Situation: Family Feels Safe at Home: Yes Smoking Status: Former smoker Hx Alcohol Use: Yes Alcohol type: beer Hx Substance Use: No Physical Exam Psychiatric: Orientation: alert, oriented x 3 and cooperative Apperance: appropriately dressed (in hospital gown), appropriately groomed and appeared stated age Eye Contact: good eye contact Motor Behavior: no abnormal motor movements (observed while laying in bed) Speech: normal rate/rhythm/volume of speech (somewhat monotone) Affect: + depressed affect Mood: + depressed mood ("Just really low, every since they first told me") Thought Process: goal directed thought process and clear/coherent thought process Thought Content: reality based without delusions Suicidal Thoughts: denies suicidal thoughts, denies suicidal plan and denies suicidal intent Homicidal Thoughts: denies homicidal thoughts Hallucinations: no auditory hallucinations and no visual hallucinations Cognition: attention grossly intact and language grossly intact Estimated Intelligence: consistent with education level Insight: + fair insight Judgement: + fair judgement Vital Signs (Past 24 Hours): Last Vital Signs Temp 36.4 C L 03/04/19 15:35 Pulse 61 03/04/19 15:35 Resp 20 03/04/19 15:35 BP 118/74 03/04/19 15:35 Pulse Ox 94 03/04/19 15:35 Review of Systems Constitutional: denied Cardiovascular: denied Respiratory: denied Gastrointestinal: denied Genitourinary: reports increased urinary frequency Neurological: reports difficulty concentrating Psychiatric: denies symptoms other than stated above Total of at least 10 systems reviewed, pertinent positives as above and in HPI. Results & Data Medications Administered Enoxaparin Sodium (Lovenox) 40 mg SQ Q24H [facility] Stop: 04/02/19 20:59 Last Admin: 03/03/19 21:21 Dose: 40 mg Documented by: [id number] Gadobutrol (Gadavist 65ml) 10 ml IV ONCE PRN PRN Reason: Interaction Checking Stop: 03/08/19 12:25 Last Admin: 03/04/19 12:27 Dose: 10 ml Documented by: [id number] Furosemide 40 mg/ Syringe 4 mls @ 4 mls/min IV BID ABBEY Stop: 04/03/19 08:59 Last Admin: 03/04/19 07:59 Dose: 4 mls/min Documented by: [id number] Ioversol (Optiray 320 125ml) 100 ml IV ONCE PRN PRN Reason: Interaction Checking Stop: 03/07/19 16:14 Last Admin: 03/03/19 16:15 Dose: 100 ml Documented by: [id number] Isosorbide Mononitrate (Imdur Extended Rel) 30 mg PO QAM [facility] Stop: 04/03/19 10:29 Last Admin: 03/04/19 11:08 Dose: 30 mg Documented by: [id number] Morphine Sulfate (Morphine Sulfate) 2 mg IV Q8H PRN PRN Reason: Severe Pain Stop: 03/17/19 17:20 Last Admin: 03/04/19 07:58 Dose: 2 mg Documented by: [id number] Admin: 03/04/19 00:22 Dose: 2 mg Documented by: [id number]
[2019-03-04] MEDS: OXYCODONE/ACETAMINOPHEN 5mg/325mg TAB PO PRN ×2 (16:58→20:47)
[2019-03-04] MEDS: METOPROLOL TARTRATE 25 MG TAB PO SCH (20:47)
[2019-03-04] MEDS: ENOXAPARIN INJ 40 MG/0.4 ML SYR SQ SCH (20:47)
[2019-03-05] MEDS: OXYCODONE/ACETAMINOPHEN 5mg/325mg TAB PO PRN (06:22)
[2019-03-05 06:28] LABS: Hematocrit (blood only) 42.6 % (42-52); Hemoglobin 14.9 g/dL (14.0-18.0); Mean Platelet Volume 10.4 fL (7.4-10.4); Platelet Count 148 K/uL (130-400); RDW Coefficient of Variation 13.7 % (11.5-14.5); RDW Standard Deviation 46.7 fL (36.4-46.3); Red Blood Count 4.58 M/uL (4.7-6.1); White Blood Count 8.51 K/uL (4.8-10.8)
[2019-03-05 06:55] LABS: BUN Creatinine Ratio 37.7 (10-20); Calcium 8.8 mg/dl (8.5-10.1); Creatinine Clr Calc Pharmacy 95.9 ml/min; Est GFR (African American) 100.4; Est GFR (Non-African American) 86.7; Potassium 3.4 mmol/L (3.5-5.1)
[2019-03-05 08:23] VITALS: O2SAT 94
[2019-03-05] MEDS: ISOSORBIDE MONO EXTENDED REL 30 MG TABCR PO SCH (08:36)
[2019-03-05] MEDS: METOPROLOL TARTRATE 25 MG TAB PO SCH (08:40)
[2019-03-05] MEDS: MoRPHine SULFATE 2 MG/ML CARP IV PRN (08:41)
[2019-03-05] MEDS ORDERED: ATORVASTATIN 20 MG TAB PO SCH (09:00)
[2019-03-05] MEDS ORDERED: LISINOPRIL 2.5 MG TAB PO SCH (09:00)
[2019-03-05] MEDS ORDERED: FLUOXETINE HCL 20 MG CAP PO SCH (09:00)
--- NOTE | 2019-03-05 10:30 | Cardiology Progress Note ---
Date of Service March 05, 2019 Assessment & Plan (1) Chest pain: Patient with recent symptoms concerning for increasing angina pectoris with known coronary artery disease patient off all cardiac medications due to deliberate withdrawal. No signs of injury by EKG or cardiac enzymes preliminary echocardiogram with preserved to hyperdynamic LV systolic function Guideline directed medical regimen has been begun with beta-emir, nitrates aspirin and MIRELLA inhibitor No further symptoms. Prior medical records not yet received however patient ambulatory in resendez without complaints. Other issues being addressed occluding depression. PSA low Recommendations: Patient to be discharged from cardiac standpoint on current medical regimen follow-up with cardiology Katia Sesay to 2-3 weeks time and will readdress for need for stress testing at that time. Urgent need for compliance with medication. Released for outpatient records are resubmitted (2) Angina pectoris: (3) Hypertension: Subjective Patient denies any cardiac complaints. Heart rate and blood pressure much better controlled. Ambulatory in the hallway without chest pain or discomfort with predominant limiting issue chronic back pain. Review of Systems Review of Systems: All systems reviewed & are unremarkable except as noted in HPI & below Physical Exam Constitutional: WD/WN, vitals as above + obese Eyes: PERRL, conjunctivae normal, anicteric sclerae ENMT: external ear and nose normal, oropharynx normal Neck: trachea midline, no thyromegaly Respiratory: normal respiratory effort Auscultation: + diminished lung sounds Cardiovascular: Rate/Rhythm: regular rate and regular rhythm Heart Sounds: normal S1 and normal S2; no gallop and no murmur Palpation: normal PMI Vessels: normal carotid upstroke and radial pulses present; no JVD and no carotid bruit Extremities: + edema (1+ bilateral lower extremity) Gastrointestinal (Abdomen): normal bowel sounds, soft, nontender, no hepatosplenomegaly Musculoskeletal: no cyanosis or clubbing, extremities motor strength 5/5 Skin: no rashes, warm and dry Neurologic: PERRL, EOMI, accommodation nl, no face palsy, no dysarthria Psychiatric: Orientation: alert and oriented x 3 Mood: + depressed mood Results & Data Vital Signs (Past 12 Hours) Vital Signs Temp Pulse Pulse Pulse Resp BP Pulse Ox 03/05/19 08:40 57 L 157/83 H 03/05/19 07:00 36.7 C 55 L 18 109/67 94 03/05/19 04:39 36.6 C 54 L 18 128/74 95 03/05/19 00:00 36.6 C 63 58 L 18 129/78 94 Laboratory Results Laboratory Results - last 24 hr 03/04/19 03/05/19 03/05/19 06:20 06:01 06:01 WBC 8.51 RBC 4.58 L Hgb 14.9 Hct 42.6 MCV 93.0 MCH 32.5 MCHC 35.0 RDW Std Deviation 46.7 H RDW Coeff of Steve 13.7 Plt Count 148 MPV 10.4 Sodium 136 Potassium 3.4 L Chloride 100 Carbon Dioxide 27 Anion Gap 9.0 BUN 36 H D Creatinine 0.95 Est Cr Clr Drug Dosing 95.9 Est GFR ( Amer) 100.4 Est GFR (Non-Af Amer) 86.7 BUN/Creatinine Ratio 37.7 H Glucose 100 H Calcium 8.8 Prostate Specific Ag < 0.010 (1) Chest pain Chest pain type: unspecified Qualified Code(s): R07.9 - Chest pain, unspecified
--- NOTE | 2019-03-05 12:06 | Hospitalist Progress Note ---
Date of Service March 05, 2019 Assessment & Plan (1) Chest pain: This is a 58 year old M patient who reports history of coronary artery disease with 3 stents 10 years ago at [facility] and diagnosed with prostate cancer at least 2 years and also followed with [facility] and because he was told of overall poor prostate cancer, the patient became depressed and stopped taking his cardiovascular medications for at least more than 1 year. Patient has not been following with any clinic outpatient doctors. He came to the emergency room because of shortness of breath and chest pain especially on exertion. CHEST PAIN Likely stable angina In setting of coronary artery disease with 3 stents in late 30s, stopped taking all his medications 1 to 2 years ago and follow-ups with all physicians as got depressed with diagnosis of prostate cancer and treatment was not working per him. -EKG- No acute ischemic changes, Troponin x 4 negative. -Echo- EF 65-70% , Mild LVH, Trace MR -Started him on Aspirin 81 mg, Atorvastatin 20 mg q HS, isosorbide mononitrate 30 mg daily, lisinopril 2.5 mg which will be increased to 5 mg daily, metoprolol tartrate 25 mg twice daily -Received Lasix IV 40 mg x 2 doses, no overt signs of CHF. -Records from [facility] requested. Does not recall his medications (Have not received records yet) -Cardiology on [id number] with cardiology in 2 to 3 weeks. Will consider outpatient stress test. Cleared for discharge PROSTATE CARCINOMA, Untreated and Lost to follow up -In the past patient reports he followed at [facility] , Cancer center -He reports that he was told he had poor prognosis and radiation/treatment was not effective and had side effects so decided to stop following up and stop all his medications. Do not have any records-requested. -PSA done here is <0.010 -CT chest- No mets, MRI lumbar spine ordered- No mets. -Patient is willing to follow up now for Prostate carcinoma. Need to establish care with cancer center LOW BACK PAIN Low back pain ongoing for many months. Concerned about metastasis with untreated prostate carcinoma as IV morphine not helping with the pain -MRI lumbar spine orderedno disc herniation or central canal stenosis, mild spondylotic changes and degenerative change. No meds noted. Fatty marrow change in L5 and sacrum suggestive of prior radiation treatment. -Percocet helping. Will give prescription for only 5 days and than f/up with PCP DEPRESSION -Psychiatry was consultedstarted on fluoxetine 20 mg, hydroxyzine 50 mg nightly and recommends follow-up outpatient -Unclear of alcohol use as outpatient. CT shows early hepatic cirrhosis Blood per rectum ? -as per patient -FOBT sent- uncollected -No overt signs of GI bleeding and HB stable, 14.9 -Follow up outpatient if continued concerns Medical nonadherence Patient stopped following with physicians, stopped all his medications midway of starting treatment for prostate carcinoma as he got depressed. Now motivated to start treatment again and follow-up DVT ppx: Lovenox SQ Code Status of DNR/DNI as discussed with the patient Disposition Cleared for discharge by cardiology. Eager to be discharged home. Discussed with pillowcase folder about establishing care with PCP and working for transportation as patient does not drive and son goes away for 2 weeks for work Subjective Patient is doing much better. Denies any chest pain or shortness of breath. Ambulating in the hallway without any symptoms. Back pain is much better. Eager to be discharged. Motivated to be more compliant and follow-up with physicians Physical Exam Physical Exam: GENERAL- AAOX3, No acute distress; OBESE + LUNGS- Air entry bilaterally equal. No rales, rhonchi, crackles, wheezes heard. HEART- Regular rate and rhythm. No murmurs ABDOMEN- Soft, non tender, non distended, Bowel sounds heard. EXTREMITIES- Good peripheral pulses, no edema Results & Data Vital Signs (Past 12 Hours) Vital Signs Temp Pulse Pulse Pulse Resp BP Pulse Ox 03/05/19 11:32 90 03/05/19 08:40 57 L 157/83 H 03/05/19 07:00 36.7 C 55 L 18 109/67 94 03/05/19 04:39 36.6 C 54 L 18 128/74 95 03/05/19 00:00 36.6 C 63 58 L 18 129/78 94
--- NOTE | 2019-03-05 12:12 | Discharge Summary ---
Date of Service March 05, 2019 Admission HPI Per Admitting Provider Neto Rios is a 58-year-old male admitted medically on 03/04/19 due to chest pain and shortness of breath. Pt was diagnosed with prostate cancer at least two years ago, and was reportedly given a poor prognosis. It is reported patient has not been compliant with cancer treatments or with his cardiovascular medications. There is reported concern for depression, and whether this is contributing to noncompliance. Psychiatric consultation is requested to evaluate for depression. Pt states that he has had significant difficulty with his diagnosis, as he verbalizes having to watch his brother of cancer at the same age as the patient is now. Pt states he was told "the cancer was treatable, so they gave me 9 weeks of radiation and these hormone pills, and nothing change. I wish they would have told me it couldn't be cured before I spent so much time feeling like sh*t." Pt states he has been "depressed, ever since they couldn't cure me. I just gave up." Earlier in his diagnosis, he states he had experienced SI, resulting in taking a "hacksaw" to his wrist [showing this provider the transverse scars to his distal forearm], but "chickened out before the last cut." Pt states that he has not felt suicidal since, but does verbalize hopelessness. Pt verbalizes depressive symptoms of low mood, anhedonia, decreased energy, limited motivation, increased appetite, and difficulty sleeping. Pt states he gets about 3-4 hours of sleep per night, and often finds himself struggling with racing thoughts that prevent a restful sleep. Pt states this has been the case for years. He states he had previously received Ambien for sleep, but found it ineffective for calming his racing thoughts. Pt does admit to use of alcohol to "cover up" his depression, reporting 10-15 alcoholic beverages per day ( indicating this is drastically reduced from the time in which he was living independently in [place]). Pt now lives with his son in [place], and is not established with medical providers in the area. He is agreeable to taking psychiatric medications, and would be willing for referral for outpatient medication management and/or therapy. Principal Diagnosis 1. Chest pain, likely stable angina 2. Prostate carcinoma, untreated and lost to follow-up 3. Chronic low back pain 4. Depression 5. Medical nonadherence Secondary diagnoses on discharge 1. Obesity Discharge Exam GENERAL- AAOX3, No acute distress; OBESE + LUNGS- Air entry bilaterally equal. No rales, rhonchi, crackles, wheezes heard. HEART- Regular rate and rhythm. No murmurs ABDOMEN- Soft, non tender, non distended, Bowel sounds heard. EXTREMITIES- Good peripheral pulses, no edema Discharge Data Allergies Allergy/AdvReac Type Severity Reaction Status Date / Time No Known Allergies Allergy Verified 03/03/19 15:24 Consultations 03/03/19 16:41 ED Decision to Admit Stat 03/03/19 17:30 Consult Cardiology Routine 03/03/19 17:44 Consult Psychiatry Routine 03/04/19 10:33 HIM [Consult Health Information Management] Stat Ordered Studies 03/03/19 14:16 CT head/brain wo con Stat 03/03/19 15:19 CT angio chest PE protocol Stat 03/04/19 10:19 MR lumbar spine wo/w con Routine Hospital Course (1) Chest pain: This is a 58 year old M patient who reports history of coronary artery [place] [facility] with [place] cancer at least 2 years and [place] [facility] because he was told of overall poor prostate cancer, the patient became depressed and stopped taking his cardiovascular medications for at least more than 1 year. Patient has not been following with any clinic outpatient doctors. He came to the emergency room because of shortness of breath and chest pain especially on exertion. CHEST PAIN Likely stable angina In setting of coronary artery disease with 3 stents in late 30s, stopped taking all his medications 1 to 2 years ago and follow-ups with all physicians as got depressed with diagnosis of prostate cancer and treatment was not working per him. -EKG- No acute ischemic changes, Troponin x 4 negative. -Echo- EF 65-70% , Mild LVH, Trace MR -Started him on Aspirin 81 mg, Atorvastatin 20 mg q HS, isosorbide mononitrate 30 mg daily, lisinopril 2.5 mg which will be increased to 5 mg daily, metoprolol tartrate 25 mg twice daily -Received Lasix IV 40 mg x 2 doses, no overt signs of CHF. -Records from [facility] requested. Does not recall his medications (Have not received records yet) -Cardiology on [id number] with cardiology in 2 to 3 weeks. Will consider outpatient stress test. Cleared for discharge PROSTATE CARCINOMA, Untreated and Lost to follow up -In the past patient [place] [facility] [place] -He reports that he was told he had poor prognosis and radiation/treatment was not effective and had side effects so decided to stop following up and stop all his medications. Do not have any records-requested. -PSA done here is <0.010 -CT chest- No mets, MRI lumbar spine ordered- No mets. -Patient is willing to follow up now for Prostate carcinoma. Need to establish care with cancer center LOW BACK PAIN Low back pain ongoing for many months. Concerned about metastasis with untreated prostate carcinoma as IV morphine not helping with the pain -MRI lumbar spine orderedno disc herniation or central canal stenosis, mild spondylotic changes and degenerative change. No meds noted. Fatty marrow hodges e in L5 and sacrum suggestive of prior radiation treatment. -Percocet helping. Will give prescription for only 5 days and than f/up with PCP DEPRESSION -Psychiatry was consultedstarted on fluoxetine 20 mg, hydroxyzine 50 mg nightly and recommends follow-up outpatient -Unclear of alcohol use as outpatient. CT shows early hepatic cirrhosis Blood per rectum ? -as per patient -FOBT sent- uncollected -No overt signs of GI bleeding and HB stable, 14.9 -Follow up outpatient if continued concerns Medical nonadherence Patient stopped following with physicians, stopped all his medications midway of starting treatment for prostate carcinoma as he got depressed. Now motivated to start treatment again and follow-up DVT ppx: Lovenox SQ Code Status of DNR/DNI as discussed with the patient Disposition Cleared for discharge by cardiology. Eager to be discharged home. Establish care with PCP, Cancer center and psychiatry. Discussed with CM, Son and agreeable with follow up plan Total Time Total Time Spent Total Time Spent (In Minutes): 35 minutes Discharge Plan Discharge Items Patient Disposition: Home - Self-Care Reason For Visit: CHEST PAIN Discharge Diagnosis: Chest pain, likely stable angina Discharge Goals: Improve disease control Specific Goals: Adherence with medications Activity: Resume your previous activity Non-emergency contact: Primary Care Provider Call non-emergency contact if: your symptoms worsen Follow-up/Referrals: Nolberto Gonzalez MD [Physician] - (NEED TO FOLLOW UP WITH PSYCHIATRY OUTPATIENT) Raleigh Zendejas DO [Physician] - 03/17/19 10:55 am Diet: Heart Healthy, Low Fat and Low Sodium (2gm) Addtl Provider Instructions: You were admitted to the hospital for chest pain which most likely stable angina. Do not do exertional activities. If you develop chest pain, do take nitroglycerin 1 tablet sublingually every 5 minutes as needed for chest pain up to 3 tablets. If it continues seek medical attention immediately. You were started on multiple medications during this admission. You need to establish care with primary care physician, cardiology, psychiatry, cancer Centeroncology Tests done during this admission EKG, echocardiogram, MRI lumbar spine New medications 1. Aspirin 81 mg daily 2. Metoprolol tartrate 25 mg twice daily 3. Lisinopril 5 mg daily 4. Isosorbide mononitrate 30 mg daily 5. Atorvastatin 20 mg at bedtime 6. Fluoxetine 20 mg daily for depression 7. Hydroxyzine 50 mg q. bedtime 8. Omeprazole 20 mg daily Please call oncologist to establish care for prostate carcinoma Prescriptions: New atorvastatin 20 mg Tablet 20 mg PO QAM 30 Days Qty: 30 RF: 0 isosorbide mononitrate 30 mg Tablet Extended Release 24 Hr 30 mg PO QAM 30 Days Qty: 30 RF: 0 lisinopril 5 mg tablet 5 mg PO QAM 30 Days Qty: 30 RF: 0 nitroglycerin [Nitrostat] 0.4 mg Tablet, Sublingual 0.4 mg sublingual PRN PRN (Reason: chest pain) 30 Days Qty: 30 RF: 0 hydroxyzine HCl 25 mg Tablet 50 mg PO HS 30 Days Qty: 60 RF: 0 fluoxetine 20 mg Capsule 20 mg PO QAM 30 Days Qty: 30 RF: 0 metoprolol tartrate 25 mg Tablet 25 mg PO BID 30 Days Qty: 60 RF: 0 omeprazole 20 mg capsule,delayed release(DR/EC) 20 mg PO DAILY 84 Days Qty: 84 RF: 0 oxycodone-acetaminophen [Percocet] 5-325 mg tablet 1 tab PO Q8H PRN (Reason: pain) Qty: 14 RF: 0 No Action No Known Home Medications RF: 0 Stand-Alone Forms: [facility]charge Orders: Discharge Order (Routine); Ordered 03/05/19 Ordered By: Kindra Benson Admission Data Admit Date/Time: 03/03/19 17:24 Attending Provider: Kindra Benson Admit Provider: Tuan Gandara Primary Care Provider: PCP,NO Other Providers: Trey Gandara ; Zaire Keys Dennis J Service: Telemetry Medical Other Pending Studies at Discharge: Yes Studies:: HBA1C, Lipid panel to be followed up
[2019-03-05 12:20] VITALS: BP 112/84; TEMP 97.9
[2019-03-05 13:05] LABS: Chol HDL Ratio 6; Cholesterol 255 mg/dl (0-200); HDL Cholesterol 45 mg/dl; LDL Cholesterol Calculated 148 mg/dl; Triglycerides 310 mg/dl (0-150); VLDL Cholesterol 62 mg/dl
[2019-03-05 13:28] LABS: Estimated Average Glucose 111 mg/dl; Hemoglobin A1C 5.5 % (4.5-5.6)
[2019-03-05 13:49] VITALS: PULSE 57
== END 2019-03-05 14:01 | disposition home or self-care (01) | DRG 303 ==
LOC: ED 13:47 → SUATTDRO 17:24 → 2N 17:24

== ENCOUNTER 2019-07-11 21:16 | Observation (INO) ==
[2019-07-11] MEDS ORDERED: LORazepam 0.5 MG/1 ML VIAL IV STA (21:38)
[2019-07-11] MEDS ORDERED: GI COCKTAIL ED USE PO ONE (21:38)
--- NOTE | 2019-07-11 21:45 | Emergency Department Note ---
History of Present Illness General Chief complaint: Cardiac Assessment Stated complaint: CHEST PAIN History of Present Illness Maximum Pain Intensity: 6 This 59-year-old male coming from home via EMS presents to the ER complaining of chest pain, back pain, sore throat and feeling depressed Location: Chest and back Quality: Uncomfortable Severity: Moderate Duration: Past hour and a half Timing: Started while watching TV Context: Patient was concerned and summoned EMS Modifying factors: better with nitroglycerin; worse with nothing Patient had 3 stents placed 10 years ago. He has been living with his son for the past several months. He has not seen a family care doctor since living here. He was admitted to this hospital for chest pain rule out a few months ago. Patient stopped taking his antidepressant. He is unsure what medications he currently takes. He has a history of prostate cancer not undergoing treatment. Patient states he has been drinking alcohol today. He states he does not drink daily. Patient also complains of a sore throat. Patient denies abdominal pain, fever, chills, cough, congestion, vomiting, diarrhea. No tobacco use. No recent stress test or echo. Home Medications Home Medications Medication Instructions Recorded Confirmed Type No Known Home Medications 03/03/19 07/11/19 History Allergies Allergy/AdvReac Type Severity Reaction Status Date / Time No Known Allergies Allergy Verified 07/11/19 22:24 Past Med/Surg History Medical History No significant family history No significant medical problems No significant past medical history Prostate cancer Surgical History No significant past surgical history Social History Preferred Language: Hebrew Communication Ability: Effective [employer] Required: No Beliefs That Will Affect Care: None Current Living Situation: Family Feels Safe at Home: Yes Smoking Status: Never smoker Hx Alcohol Use: Yes Alcohol type: beer Hx Substance Use: No Review of Systems A total of 10 systems reviewed and were otherwise negative Physical Exam Vital Signs Vital Signs - 24 hr 07/11/19 21:28 07/11/19 21:34 07/11/19 21:56 Temperature 36.8 C Temperature Source Oral Pulse Rate 107 H Pulse Rate [Bilateral Apical] 99 H Respiratory Rate 20 20 Respiratory Effort / Characteristics Non-Labored Non-Labored Respiratory Depth Normal Normal Blood Pressure 116/72 Blood Pressure [Right Arm] 112/74 Blood Pressure Mean 86 Blood Pressure Mean [Right Arm] 86 Blood Pressure Position Lying Pulse Oximetry 94 94 94 Oxygen Delivery Method Room Air Room Air Room Air Sepsis Recent Fever Within 48 Hours No Sepsis Action Taken by Nursing No Action Required 07/11/19 22:25 07/11/19 23:22 07/11/19 23:48 Temperature Temperature Source Pulse Rate Pulse Rate [Bilateral Apical] 95 H 89 84 Respiratory Rate 20 18 20 Respiratory Effort / Characteristics Respiratory Depth Blood Pressure Blood Pressure [Right Arm] 96/64 L 111/66 115/77 Blood Pressure Mean Blood Pressure Mean [Right Arm] 74 81 89 Blood Pressure Position Pulse Oximetry 95 95 95 Oxygen Delivery Method Room Air Room Air Room Air Sepsis Recent Fever Within 48 Hours Sepsis Action Taken by Nursing 07/12/19 00:03 Temperature Temperature Source Pulse Rate Pulse Rate [Bilateral Apical] 84 Respiratory Rate 18 Respiratory Effort / Characteristics Non-Labored Respiratory Depth Normal Blood Pressure Blood Pressure [Right Arm] 103/57 L Blood Pressure Mean Blood Pressure Mean [Right Arm] 72 Blood Pressure Position Pulse Oximetry 96 Oxygen Delivery Method Room Air Sepsis Recent Fever Within 48 Hours Sepsis Action Taken by Nursing VITALS: Vitals are noted on the nurse's note and reviewed by myself. Vital signs stable. GENERAL: White male depressed appearing, in no acute distress, nondiaphoretic, well-developed well-nourished. SKIN: The skin was without rashes, erythema, edema, or bruising. There is no tenting of the skin. Capillary reflex less than 2 seconds. HEAD: Normocephalic atraumatic. EARS: External auditory canals clear EYES: Pupils equal round and reactive to light and accommodation. Conjunctivae without injection, sclerae without icterus. Extraocular movements intact. NOSE: Patent, turbinates without inflammation or discharge. MOUTH: Mucous membranes moist. Pharynx without erythema or exudate. Uvula midline. Airway patent. Tongue does not deviate. NECK: Supple without nuchal rigidity. No lymphadenopathy. No thyromegaly. No JVD. HEART: Regular rate and rhythm LUNGS: Clear to auscultation bilaterally without wheezes, rales or rhonchi. No retractions or accessory muscle use. ABDOMEN: Positive bowel sounds x 4. Normal tympanic percussion. Soft, nontender, without masses or organomegaly. Jesus sign negative. No guarding or rebound tenderness. No CVA tenderness MUSCULOSKELETAL: No muscle atrophy, erythema noted. NEURO: Patient was alert and oriented to person place and time. Normal sensation to light and sharp touch. No focal neurological deficits. Course Administered Medications Ioversol (Optiray 320 125ml) 119 ml IV ONCE PRN PRN Reason: Interaction Checking Stop: 07/15/19 23:13 Last Admin: 07/11/19 23:15 Dose: 119 ml Documented by: [id number] Discontinued Medications Al Hydrox/Mg Hydrox/Simethicone () 1 dose PO ONE ONE Stop: 07/11/19 21:39 Last Admin: 07/11/19 21:53 Dose: 1 dose Documented by: [id number] Lorazepam (Ativan) 0.5 mg in 1 mls @ 1 mls/min IV NOW STA Stop: 07/11/19 21:39 Last Admin: 07/11/19 21:53 Dose: 1 mls/min Documented by: [id number] Lidocaine HCl (Viscous Lidocaine 2%) 15 ml MT NOW ONE Stop: 07/12/19 00:02 Last Admin: 07/12/19 00:07 Dose: 15 ml Documented by: [id number] Medical Decision Making Medical Records Attestation: I reviewed the patient's medical records. Home Medications Current Medication List: was personally reviewed by me Laboratory Data Attestation: I reviewed the patient's lab results. Result diagrams: 07/11/19 21:10 07/11/19 21:10 Lab Results 07/11/19 07/11/19 07/11/19 Range/Units 21:10 21:10 21:10 WBC 8.72 (4.8-10.8) K/uL RBC 4.42 L (4.7-6.1) M/uL Hgb 14.1 (14.0-18.0) g/dL Hct 41.1 L (42-52) % MCV 93.0 (80-100) fL MCH 31.9 (25-34) pg MCHC 34.3 (32-36) g/dL RDW Std Deviation 48.1 H (36.4-46.3) fL RDW Coeff of Steve 14.1 (11.5-14.5) % Plt Count 139 (130-400) K/uL MPV 10.6 H (7.4-10.4) fL Immature Gran % (Auto) 0.6 % Neut % (Auto) 54.8 % Lymph % (Auto) 32.5 % Stephens % (Auto) 8.3 % Eos % (Auto) 3.3 % Baso % (Auto) 0.5 % Immature Gran # (Auto) 0.05 H (0.00-0.02) K/uL Neut # (Auto) 4.79 (1.4-6.5) K/uL Lymph # (Auto) 2.83 (1.2-3.4) K/uL Stephens # (Auto) 0.72 H (0.11-0.59) K/uL Eos # (Auto) 0.29 (0-0.5) K/uL Baso # (Auto) 0.04 (0-0.2) K/uL D-Dimer Cancelled Sodium 138 (136-145) mmol/L Potassium 3.6 (3.5-5.1) mmol/L Chloride 107 (98-107) mmol/L Carbon Dioxide 22 (21-32) mmol/L Anion Gap 9.0 (3-11) BUN 20 H (7-18) mg/dl Creatinine 0.94 (0.6-1.4) mg/dl Est Cr Clr Drug Dosing 100.6 ml/min Est GFR ( Amer) 101.7 Est GFR (Non-Af Amer) 87.8 BUN/Creatinine Ratio 21.8 H (10-20) Glucose 104 H (70-99) mg/dl Calcium 8.6 (8.5-10.1) mg/dl Total Bilirubin 0.4 (0.2-1) mg/dl AST 21 (15-37) U/L ALT 25 (12-78) U/L Alkaline Phosphatase 149 H (45-117) U/L Troponin I < 0.015 (0-0.045) ng/ml Total Protein 7.8 (6.4-8.2) gm/dl Albumin 3.3 L (3.4-5.0) gm/dl Globulin 4.5 H (2.5-4.0) gm/dl Albumin/Globulin Ratio 0.7 L (0.9-2) Lipase 168 (73-393) U/L TSH 1.380 (0.300-4.500) uIu/ml Urine Opiates Screen (Neg) Ur Methadone, Qual (Neg) Urine Barbiturates (Neg) Ur Phencyclidine (PCP) (Neg) U Amphetamin/Meth Scrn (Neg) MDMA (Ecstasy) Screen (Neg) U Benzodiazepines Scrn (Neg) Ur Cocaine Metabolite (Neg) U Marijuana (THC) Screen (Neg) Ethyl Alcohol mg/dL (0-3) mg/dl 07/11/19 07/11/19 07/11/19 Range/Units 21:56 22:17 22:25 WBC (4.8-10.8) K/uL RBC (4.7-6.1) M/uL Hgb (14.0-18.0) g/dL Hct (42-52) % MCV (80-100) fL MCH (25-34) pg MCHC (32-36) g/dL RDW Std Deviation (36.4-46.3) fL RDW Coeff of Steve (11.5-14.5) % Plt Count (130-400) K/uL MPV (7.4-10.4) fL Immature Gran % (Auto) % Neut % (Auto) % Lymph % (Auto) % Stephens % (Auto) % Eos % (Auto) % Baso % (Auto) % Immature Gran # (Auto) (0.00-0.02) K/uL Neut # (Auto) (1.4-6.5) K/uL Lymph # (Auto) (1.2-3.4) K/uL Stephens # (Auto) (0.11-0.59) K/uL Eos # (Auto) (0-0.5) K/uL Baso # (Auto) (0-0.2) K/uL D-Dimer 840 H* Sodium (136-145) mmol/L Potassium (3.5-5.1) mmol/L Chloride (98-107) mmol/L Carbon Dioxide (21-32) mmol/L Anion Gap (3-11) BUN (7-18) mg/dl Creatinine (0.6-1.4) mg/dl Est Cr Clr Drug Dosing ml/min Est GFR ( Amer) Est GFR (Non-Af Amer) BUN/Creatinine Ratio (10-20) Glucose (70-99) mg/dl Calcium (8.5-10.1) mg/dl Total Bilirubin (0.2-1) mg/dl AST (15-37) U/L ALT (12-78) U/L Alkaline Phosphatase (45-117) U/L Troponin I (0-0.045) ng/ml Total Protein (6.4-8.2) gm/dl Albumin (3.4-5.0) gm/dl Globulin (2.5-4.0) gm/dl Albumin/Globulin Ratio (0.9-2) Lipase (73-393) U/L TSH (0.300-4.500) uIu/ml Urine Opiates Screen Neg (Neg) Ur Methadone, Qual Neg (Neg) Urine Barbiturates Neg (Neg) Ur Phencyclidine (PCP) Neg (Neg) U Amphetamin/Meth Scrn Neg (Neg) MDMA (Ecstasy) Screen Neg (Neg) U Benzodiazepines Scrn Neg (Neg) Ur Cocaine Metabolite Neg (Neg) U Marijuana (THC) Screen Neg (Neg) Ethyl Alcohol mg/dL 114.7 H (0-3) mg/dl Imaging Data Attestation: I personally reviewed and interpreted this imaging study as follow s: MDM Narrative Prior records/ancillary studies reviewed. Triage Nursing notes reviewed. The patient's history was concerning for chest pain. Differential diagnosis: Etiologies such as cardiac ischemia, aortic dissection, pulmonary embolism, pneumonia, pneumothorax, musculoskeletal, infections, pericarditis, myocarditis, esophageal rupture, gastrointestinal, as well as others were entertained. Physical examination: As above. ER treatment provided: EMS gave the patient aspirin 324 mg and 2 nitroglycerin. Patient took 2 nitroglycerin at home. He is currently pain-free He was given Ativan On reassessment the patient felt better. Diagnostic interpretation by me: The electrocardiogram was negative for pathologic change. Normal sinus, Q wave in lead III, no acute ST-T wave changes, rate of 108. Impression sinus tachycardia interpreted by myself Ordered for chest pain I think arrhythmia is unlikely. EKG shows normal sinus rhythm with no interval abnormalities such as QT prolongation or WPW. There are no findings to suggest Brugada syndrome. Cardiac monitoring in the emergency department reveals no tachycardic or bradycardic dysrhythmia. Hypertrophic cardiomyopathy was considered but there are no clear historical elements pointing toward this. EKG is not suggestive. The QRS voltage is not extremely large and there are no suggestive Q waves. The labs revealed negative troponin, elevated d-dimer, negative CTA Imaging studies: Chest x-ray with no acute consolidation, pneumothorax or free air per my interpretation CT CHEST With Contrast: No pulmonary embolus. Cardiomegaly. No effusion or consolidation. Mild gynecomastia. Radiologist: Ambar Gómez M.D. HEART SCORE: Hx: high/mod/low suspicion: 0 ECG: ST depression/nonspecific changes/normal: 0 Age: Greater than 65/45-64/less than 45: 1 Risk factors: (Hypertension, hyperlipidemia, diabetes, coronary disease, tobacco use, cocaine use): 1 Troponin: Greater than 2 times normal limits/1-2 times normal limits/normal: 0 Total: 2 Consultation: A consultation was placed with the hospitalist, Dr Galindo. The case was discussed and diagnostics were reviewed. The patient was evaluated in the ER for further treatment. Exam and history seem consistent with chest pain with depression. Medicine was consulted. Patient will be evaluated for possible admission. He was given nitroglycerin and aspirin and became pain-free. EKG is unchanged. First troponin is negative. By the evaluation outlined above emergent etiologies such as aortic dissection, pulmonary embolism, pneumonia, pneumothorax, infections, pericarditis, myocarditis, gastrointestinal, as well as others were deemed relatively unlikely. The pt informed about the findings as listed above. All questions were answered and pleased with the treatment. Case reviewed with my attending The chart was completed utilizing [employer] Speech voice recognition software. Grammatical errors, random word insertions, pronoun errors, and incomplete sentences are an occassional consequence of this system due to software limitations, ambient noise, and hardware issues. Any formal questions or concerns about the content, text, or information contained within the body of this dictation should be directly addressed to the physician assistant wrestling coach for clarification. Impression & Plan Atypical chest pain Discharge Plan Visit Data Chief Complaint: Cardiac Assessment Stated Complaint: CHEST PAIN ED Provider: Javad Segura ED Midlevel Provider: Johanna Gonsalves Discharge Problem: Atypical chest pain Patient Disposition: Being Evaluated by Hospitalist Condition: Good Forms Stand Alone Forms: My [employer] Prescriptions Prescriptions: No Action No Known Home Medications RF: 0 Referrals Referrals: PCP,NO [Primary Care Provider] -
[2019-07-11 22:00] LABS: Basophils # (auto) 0.04 K/uL (0-0.2); Basophils % (auto) 0.5 %; Eosinophils # (auto) 0.29 K/uL (0-0.5); Eosinophils % (auto) 3.3 %; Hematocrit (blood only) 41.1 % (42-52); Hemoglobin 14.1 g/dL (14.0-18.0); Immature Granulocytes # (auto) 0.05 K/uL (0.00-0.02); Immature Granulocytes % (auto) 0.6 %; Lymphocytes # (auto) 2.83 K/uL (1.2-3.4); Lymphocytes % (auto) 32.5 %; Mean Corpuscular Hemoglobin 31.9 pg (25-34); Mean Corpuscular Hgb Conc 34.3 g/dL (32-36); Mean Platelet Volume 10.6 fL (7.4-10.4); Monocytes # (auto) 0.72 K/uL (0.11-0.59); Monocytes % (auto) 8.3 %; Neutrophils # (auto) 4.79 K/uL (1.4-6.5); Neutrophils % (auto) 54.8 %; Platelet Count 139 K/uL (130-400); RDW Coefficient of Variation 14.1 % (11.5-14.5); RDW Standard Deviation 48.1 fL (36.4-46.3); Red Blood Count 4.42 M/uL (4.7-6.1); White Blood Count 8.72 K/uL (4.8-10.8)
--- NOTE | 2019-07-11 22:12 | XRay Report ---
XR chest 1V portable CLINICAL HISTORY: Chest Pain dyspnea COMPARISON STUDY: 03/03/2019 FINDINGS: The bones soft tissues and hemidiaphragms are normal. The cardiomediastinal silhouette is n ormal. The lungs are clear. The pulmonary vasculature is normal. IMPRESSION: Negative chest. The above report was generated using voice recognition software. It may contain grammatical, syntax or spelling errors. Electronically signed by: Alex Ortiz M.D. 07/11/2019 10:10 PM
[2019-07-11 22:19] LABS: Alanine Aminotransferase 25 U/L (12-78); Albumin Level 3.3 gm/dl (3.4-5.0); Aspartate Aminotransferase 21 U/L (15-37); BUN Creatinine Ratio 21.8 (10-20); Blood Urea Nitrogen 20 mg/dl (7-18); Calcium 8.6 mg/dl (8.5-10.1); Carbon Dioxide 22 mmol/L (21-32); Chloride 107 mmol/L (98-107); Creatinine Clr Calc Pharmacy 100.6 ml/min; Est GFR (African American) 101.7; Est GFR (Non-African American) 87.8; Glucose 104 mg/dl (70-99); Lipase 168 U/L (73-393); Potassium 3.6 mmol/L (3.5-5.1); Sodium 138 mmol/L (136-145)
[2019-07-11 22:30] LABS: Albumin Globulin Ratio 0.7 (0.9-2); Alkaline Phosphatase 149 U/L (45-117); Bilirubin,Total 0.4 mg/dl (0.2-1); Globulin 4.5 gm/dl (2.5-4.0); Total Protein 7.8 gm/dl (6.4-8.2); Troponin I < 0.015 ng/ml (0-0.045)
[2019-07-11 22:48] LABS: Amphetamines+Metham, Urine Neg (Neg); Barbiturates, Urine Neg (Neg); Benzodiazepine, Urine Neg (Neg); Cocaine, Urine Neg (Neg); MDMA (Ecstacy), Urine Neg (Neg); Methadone, Urine Neg (Neg); Opiate, Urine Neg (Neg); Phencyclidine, Urine Neg (Neg)
[2019-07-11 22:48] LABS: D Dimer 840 ug/L FEU (0-500)
[2019-07-11] MEDS ORDERED: OPTIRAY 320 125ml IV PRN (23:14)
[2019-07-12] MEDS ORDERED: LIDOCAINE HCL VISCOUS SOLN 2% 15 ML UDC MT ONE (00:01)
[2019-07-12] MEDS ORDERED: NITROGLYCERIN SL 0.4 MG/TAB TAB SL PRN (01:38)
[2019-07-12] MEDS ORDERED: CHLORASEPTIC 1.4% SOLN 180 ML BTL MT PRN (01:38)
[2019-07-12] MEDS ORDERED: ONDANSETRON INJ 2 MG/ML 2 ML VIAL IV PRN (01:38)
[2019-07-12] MEDS ORDERED: cefTRIAXone SODIUM 1,000 MG in DEXTROSE 5% 50 ML IV SCH (01:38)
[2019-07-12] MEDS: ACETAMINOPHEN 325 MG TAB PO PRN ×2 (01:53→18:50)
[2019-07-12] MEDS ORDERED: cefTRIAXone SODIUM 2,000 MG in DEXTROSE 5% 50 ML IV SCH (02:00)
[2019-07-12] MEDS ORDERED: LORazepam 0.5 MG TAB PO STA (02:03)
[2019-07-12] MEDS: MoRPHine SULFATE 4 MG/ML 1 ML CARP\\VIAL IV PRN ×2 (02:51→13:47)
[2019-07-12 05:27] LABS: Chol HDL Ratio 7; Cholesterol 220 mg/dl (0-200); HDL Cholesterol 34 mg/dl; LDL Cholesterol Calculated 117 mg/dl; Triglycerides 343 mg/dl (0-150); Troponin I < 0.015 ng/ml (0-0.045); VLDL Cholesterol 69 mg/dl
--- NOTE | 2019-07-12 05:35 | History and Physical Report ---
DATE OF ADMISSION: 07/12/2019 CHIEF COMPLAINT: Chest pain. HISTORY OF PRESENT ILLNESS: This is a 59-year-old male with past medical history significant for CAD status post 3 stents in 30s, history of prostate cancer diagnosed about 2 years ago, recently followed with [facility], chronic back pain, depression, medication noncompliance, presents with chest pain. The patient was here in the hospital in February with chest pain. At that time, he was also not taking any medications. His echo was okay. Supposed to follow up with cardiology as outpatient for possible stress test, but seems to be not followed up. He was started on aspirin, statin, Imdur, lisinopril, Lopressor. The patient says after his medication ran out, he is not taking any medications and had not been followed with any doctors. He did not stop not long ago. He was also out of hospital, he also followed with [facility]. He also has history of prostate cancer, diagnosed about 2 years ago at [facility] and about 9 weeks of radiation and about 3 months of . Saw [facility] in March and as per epic notes there is no evidence of acute disease or disease progression and they want to follow up with repeat labs and bone scan in 3 months. The patient says today, he started to have some chest pain in the middle of the chest, sharp pains, radiating to his neck, about 7/10 in severity. The pain was more when walking associated with shortness of breath, dizziness, nausea and sweating which worried and came to the ER. He was also feeling cold. He also complains of sore throat started in the morning. No fevers.Denies any cough, no runny nose, has some headaches, mild dizziness, no blurred visions, no earache, no runny nose. No abdominal pain. Normal bowel and bladder movements. No diarrhea, no constipation, no hematuria, no burning micturition. Complains of ankle edema. His alcohol is 114 in the ER, he says because of holidays and family get together het took alcohol and last drank prior to this was 6 months ago and he says he did not get any withdrawal symptoms if not drinking.Also complains of pain pointing to both the nipples area, and it is more on palpation He has also complains of his chronic back pain and requests for pain medication . ALLERGIES: No known drug allergies. PAST MEDICAL HISTORY: As mentioned above. PAST SURGICAL HISTORY: Cardiac stents as per the patient. FAMILY HISTORY: No significant family history. SOCIAL HISTORY: Former smoker. . Alcohol occasionally. No drug use. REVIEW OF SYMPTOMS: As per HPI. Rest of review of systems is negative. MEDICATIONS AT HOME: The patient is supposed to be on Lipitor 20 mg p.o. a.m., Imdur 30 mg p.o. a.m., lisinopril 5 mg p.o. a.m., nitroglycerin 0.4 mg sublingual p.r.n., hydroxyzine 50 mg p.o. at bedtime, fluoxetine 20 mg p.o. a.m., Lopressor 25 mg p.o. b.i.d., omeprazole 20 mg p.o. daily. PHYSICAL EXAMINATION: GENERAL: The patient is alert and oriented, not in acute distress. VITAL SIGNS: Temperature 36.8, pulse 84, respiratory rate 20, blood pressure 113/70, oxygen 94% room air. HEENT: No pallor, no icterus. Pupils equal, round, reactive to light. NECK: No JVD, no neck masses, no carotid bruits. CARDIOVASCULAR: S1, S2 heard, regular rate and rhythm, no murmur, no gallop, some point tenderness in the rose-nipple region.Mild enlargement of nipple area. RESPIRATORY SYSTEM: Normal AP diameter. No accessory muscle use. No wheezing, no crackles. ABDOMEN: Soft, bowel sounds present, nontender. No distention. CENTRAL NERVOUS SYSTEM: Cranial nerves II-XII grossly nonfocal. EXTREMITIES: Ankle edema present, no erythema seen. LABORATORIES DATA: WBC 8.7, hemoglobin 14.1, hematocrit 41.1, platelets 139. D-dimer 840. Sodium 138, potassium 3.6, chloride 107, bicarbonate 22, BUN 20, creatinine 0.9, serum glucose 104, calcium 8.6, total bilirubin 0.4, AST 21, ALT 25, alkaline phosphatase is 149. Troponin I less than 0.015. Lipase 168. TSH 1.3. Urine drug screen negative. Ethyl alcohol 114. Chest x-ray, negative chest. EKG: Sinus tachycardia with PACs at the rate of 108, no acute ST changes seen. ASSESSMENT AND PLAN: This 59-year-old male presents with chest pain. 1. Chest pain, history of coronary artery disease with stents, about 10 years ago, noncompliant, not following with doctors. He was here in February with similar problem and discharged on aspirin, statin, Lopressor and lisinopril and Imdur, after he ran out of the prescription he is not taking them. Currently, initial workup is negative. We will follow serial cardiac enzymes. Monitor on tele floor with echocardiogram, consult cardiology in a.m. We will place him back on aspirin, statin and Lopressor for now and await cardiology recommendations.D dimer elevated but CTA chest unremarkable. 2. gynecomastia? pain around nipple areas. Needs followup/ 3. History of prostate cancer, status post radiation treatment and also IV injections, diagnosed 2 about years ago, followed with [facility] and currently seemed to be in remission. Plan for followup with repeat labs in 3 months. 4. Chronic back pain. pain meds prn. 5. History of depression Last admission was started paroxetine,and Hydroxyzine by psychiatry but the patient seems to be not taking his medications. 6. Medication non compliance Needs counseling. 7. Deep venous thrombosis prophylaxis. SCDs. CODE STATUS: Full code. DISPOSITION: Observe in tele floor. Level 1 full code. MTDD
--- NOTE | 2019-07-12 06:30 | CT Scan Report ---
CT ANGIOGRAM OF THE CHEST CLINICAL HISTORY: Atypical chest pain and shortness of breath. Suspected pulmonary embolism. COMPARISON STUDY: 03/03/2019 TECHNIQUE: Following the IV administration of 119 mL of Optiray-320, CT angiogram of the thorax was p erformed from the thoracic inlet to the lung bases utilizing the pulmonary embolus protocol. Images a re reviewed in the axial, sagittal, and coronal planes. IV contrast was administered without complica tion. MIP imaging was performed. A dose lowering technique was utilized adhering to the principles o f ALARA. CT DOSE: 778.75 mGy.cm FINDINGS: Mediastinal lymph nodes are the upper limits of normal in size. There was no evidence of thoracic aortic dilatation. There were no pulmonary artery filling defects to indicate acute pulmonary embolism. No pleural effusions are visualized. There was no evidence of focal pulmonary consolidation. There is possible early hepatic cirrhosis. IMPRESSION: 1. No evidence of acute pulmonary embolism 2. No evidence of focal pulmonary consolidation Electronically signed by: Sin Roca M.D. 07/12/2019 6:28 AM
[2019-07-12] MEDS: ASPIRIN 81 MG ECTAB PO SCH (08:01)
[2019-07-12] MEDS: ATORVASTATIN 20 MG TAB PO SCH (08:01)
[2019-07-12] MEDS ORDERED: METOPROLOL TARTRATE 25 MG TAB PO SCH (09:00)
--- NOTE | 2019-07-12 11:48 | Cardiology Consultation ---
Date of Consultation July 12, 2019 Assessment & Plan (1) Atypical chest pain: 59-year-old male with a history of known coronary heart disease presents with symptoms of chest discomfort somewhat atypical for angina. He has been off of his cardiac medications perhaps since February,. He presented yesterday after waking up with symptoms suggestive of a upper respiratory tract infection. He is afebrile. A CT angiogram excluded pulmonary embolism or pneumonia. Serial troponin levels have been within normal limits. Presenting EKG revealed sinus tachycardia without repolarization changes and a repeat EKG is currently pending. He had a resting echocardiogram performed earlier this morning that reveals normal left ventricular wall motion, normal right ventricular wall motion, and LVEF in the range of 65 to 70% unchanged compared to February 2019. At the time of his discharge in February, he had been counseled to resume cardiac medications including: Aspirin 81 mg daily Atorvastatin 20 mg daily Imdur 30 mg daily Lisinopril 5 mg daily Metoprolol tartrate 25 mg twice daily. I have repeated an EKG which is in process. This time I recommend supportive care for his respiratory tract infection, and resuming his home medication regimen as outlined above. History of Present Illness Attending Physician: Mi Kirk MD History of Present Illness Neto Rios is a 59-year-old male seen in cardiology consultation per the request of Dr Galindo for evaluation of chest discomfort. The patient typically receives his medical care in [place]. He has been staying with his son recently. Yesterday, he woke up with respiratory tract symptoms including stuffy nose, sinus congestion, cough, with associated chest discomfort. This persisted and therefore he came to the emergency room. Currently he feels well with the exception of mild symptoms just of of a respiratory tract infection. He is afebrile. He notes no recent exertional symptoms prior to his recent change in condition yesterday. Referring to Dr. Moore's previous inpatient consultation dated 03/04/2019 the patient typically resides in [place], [place]. He has a history of coronary hea rt disease with prior myocardial infarction and coronary stent greater than 10 years ago. He also has a history of metastatic prostate carcinoma and pleaded radiation therapy approximately 9 months ago. At the time of his visit in February, the patient had completely stopped his outpatient cardiac medication regimen and was not on his chronic medication regimen at the time of presentation. He had been advised to go back on his medications, and outpatient stress test was recommended, this had not been completed. In the meantime the patient states that he feels his medications, but has not been taking them reliably. He is not very forthcoming with historical information, but admits that he has not been taking his cardiac medications recently not know for how long however as he is not disclosing such details. Allergies Allergy/AdvReac Type Severity Reaction Status Date / Time No Known Allergies Allergy Verified 07/11/19 22:24 Home Medications Home Medications Medication Instructions Recorded Confirmed Type No Known Home Medications 03/03/19 07/11/19 History Patient History Medical History No significant family history No significant medical problems No significant past medical history Prostate cancer Surgical History No significant past surgical history Social History Preferred Language: Iranian Communication Ability: Effective Supervisor Liquefaction Required: No Beliefs That Will Affect Care: None Current Living Situation: Alone Feels Safe at Home: Yes Safety Concerns: Feels Safe At This Time Smoking Status: Never smoker Hx Alcohol Use: No Hx Substance Use: No Review of Systems Review of Systems: All systems reviewed & are unremarkable except as noted in HPI & below Physical Exam Physical Exam: Temp Pulse Resp BP Pulse Ox 36.4 C L 89 20 170/87 H 96 07/12/19 08:00 07/12/19 08:00 07/12/19 08:00 07/12/19 08:00 07/12/19 08:00 Constitutional: WD/WN, vitals as above Respiratory: normal respiratory effort, lungs clear to auscultation Cardiovascular: RRR, no murmur, no edema Gastrointestinal (Abdomen): normal bowel sounds, soft, nontender, no hepatosplenomegaly Neurologic: PERRL, EOMI, accommodation nl, no face palsy, no dysarthria Results & Data Laboratory Results Cardiac Enzymes 07/11/19 07/12/19 07/12/19 Range/Units 21:10 04:26 10:30 AST 21 (15-37) U/L Troponin I < 0.015 < 0.015 < 0.015 (0-0.045) ng/ml Lipids 07/12/19 Range/Units 04:26 Triglycerides 343 H (0-150) mg/dl Cholesterol 220 H (0-200) mg/dl HDL Cholesterol 34 mg/dl Cholesterol/HDL Ratio 7 CBC 07/11/19 Range/Units 21:10 WBC 8.72 (4.8-10.8) K/uL RBC 4.42 L (4.7-6.1) M/uL Hgb 14.1 (14.0-18.0) g/dL Hct 41.1 L (42-52) % Plt Count 139 (130-400) K/uL Neut # (Auto) 4.79 (1.4-6.5) K/uL Lymph # (Auto) 2.83 (1.2-3.4) K/uL [place] # (Auto) 0.72 H (0.11-0.59) K/uL Eos # (Auto) 0.29 (0-0.5) K/uL Baso # (Auto) 0.04 (0-0.2) K/uL Comprehensive Metabolic Panel 07/11/19 Range/Units 21:10 Sodium 138 (136-145) mmol/L Potassium 3.6 (3.5-5.1) mmol/L Chloride 107 (98-107) mmol/L Carbon Dioxide 22 (21-32) mmol/L BUN 20 H (7-18) mg/dl Creatinine 0.94 (0.6-1.4) mg/dl Glucose 104 H (70-99) mg/dl Calcium 8.6 (8.5-10.1) mg/dl AST 21 (15-37) U/L ALT 25 (12-78) U/L Alkaline Phosphatase 149 H (45-117) U/L Total Protein 7.8 (6.4-8.2) gm/dl Albumin 3.3 L (3.4-5.0) gm/dl Intake and Output 07/11/19 07/12/19 07/12/19 22:59 06:59 14:59 Intake Total 70 / 70 Balance 70 / 70 Intake: IV 70 / 70 Rocephin 2,000 mg In D5w 50 ml 70 / 70 @ 140 mls/hr IV Q24H [facility] Rx#: [id number] Other: Weight 117 kg 115.4 kg Diagnostic Findings EKG performed 07/11/2019 at 2120 revealed tachycardia at 100 bpm with occasional PACs. Medications Administered Current Inpatient Medications Acetaminophen (Tylenol) 650 mg PO Q4H PRN PRN Reason: Pain or Fever Stop: 08/11/19 01:37 Last Admin: 07/12/19 01:53 Dose: 650 mg Documented by: Aspirin (Ecotrin Ectab) 81 mg PO DAILY [facility] Stop: 08/11/19 08:59 Last Admin: 07/12/19 08:01 Dose: 81 mg Documented by: Atorvastatin Calcium (Lipitor) 20 mg PO QAM [facility] Stop: 08/11/19 08:59 Last Admin: 07/12/19 08:01 Dose: 20 mg Documented by: Ceftriaxone Sodium 2,000 mg/ (Dextrose) 70 mls @ 140 mls/hr IV Q24H [facility] Stop: 07/22/19 01:59 Last Infusion: 07/12/19 02:52 Dose: Infused Documented by: Metoprolol Tartrate (Lopressor) 12.5 mg PO BID [facility] Stop: 08/11/19 08:59 Last Admin: 07/12/19 08:01 Dose: 12.5 mg Documented by: Morphine Sulfate (Morphine Sulfate) 3 mg IV Q3H PRN PRN Reason: Pain Stop: 07/26/19 01:37 Last Admin: 07/12/19 02:51 Dose: 3 mg Documented by: Nitroglycerin (Nitrostat) 0.4 mg SL UD PRN PRN Reason: Chest Pain Stop: 08/11/19 01:37 Ondansetron HCl (Zofran) 4 mg IV Q6H PRN PRN Reason: Nausea Stop: 08/11/19 01:37 Phenol (Chloraseptic 1.4% [place]) 2 sprays MT Q4H PRN PRN Reason: Sore Throat Stop: 08/11/19 01:37 Last Admin: 07/12/19 02:10 Dose: 2 sprays Documented by:
[2019-07-12] MEDS: ISOSORBIDE MONO EXTENDED REL 30 MG TABCR PO SCH (12:27)
--- NOTE | 2019-07-12 13:02 | Hospitalist Progress Note ---
Date of Service July 12, 2019 Assessment & Plan (1) Atypical chest pain: History of CAD with status post previous stent placement Presented with the atypical chest pain Has been very noncompliant with medications in fact he has not been taking any since February EKG and troponins were unremarkable Resting echocardiogram reveals normal left ventricular wall motion, normal right ventricular wall motion, and LVEF in the range of 65 to 70% unchanged compared to February 2019. Appreciate cardiology input and recommendation His medications have been reintroduced (2) Hypertension: Blood pressure is controlled (3) Prostate cancer: History of prostate cancer 2 years ago and he treated with radiotherapy and chemo Latest PSA normal Likely the disease and is in remission Has URI with nasal congestion We will try some antihistamine in the hospital DVT prophylaxis SCDs Increase ambulation Likely home tomorrow Subjective 07/12 The patient was seen and examined in telemetry unit 59 years old with history of CAD status post 3 stents and also history of prostate cancer seems to be in remission right now was admitted with the URI symptoms associated with chest pain Apparently he is not taking his cardiac medications for a while He complains to have congested sinuses this morning but denies any other symptoms Review of Systems Review of Systems: All systems reviewed and are unremarkable except as noted below Physical Exam Physical Exam: Lying in bed without any apparent discomfort except nasal congestion and sore throat Constitutional: well developed, well nourished and + obese; no acute distress and not ill appearing Eyes: PERRL, conjunctivae normal, anicteric sclerae ENMT: external ear and nose normal, oropharynx normal Neck: trachea midline, no thyromegaly Respiratory: normal respiratory effort; no respiratory distress Auscultation: lungs clear to auscultation bilaterally Cardiovascular: Rate/Rhythm: regular rate and regular rhythm Heart Sounds: no murmur Gastrointestinal (Abdomen): Inspection/Auscultation: abdomen normal to inspec tion and normal bowel sounds Percussion/Palpation: abdomen soft; abdomen nontender Musculoskeletal: No acute arthritis in any joints Psychiatric: A+Ox3, euthymic affect Lymphatic: no cervical or axillary lymphadenopathy Results & Data Vital Signs (Past 12 Hours) Vital Signs Temp Pulse Pulse Pulse Resp BP Pulse Ox 07/12/19 12:00 36.8 C 70 18 147/90 H 96 07/12/19 08:00 36.4 C L 89 20 170/87 H 96 07/12/19 04:25 36.6 C 82 18 108/67 94 07/12/19 02:00 62 07/12/19 01:40 36.6 C 94 H 18 156/95 H 97 07/12/19 01:14 84 20 113/70 94 Laboratory Results Short CBC 07/11/19 Range/Units 21:10 WBC 8.72 (4.8-10.8) K/uL Hgb 14.1 (14.0-18.0) g/dL Hct 41.1 L (42-52) % Plt Count 139 (130-400) K/uL BMP 07/11/19 21:10 Sodium 138 Potassium 3.6 Chloride 107 Carbon Dioxide 22 BUN 20 H Creatinine 0.94 Glucose 104 H Calcium 8.6 Cardiac Enzymes 07/11/19 07/12/19 07/12/19 Range/Units 21:10 04:26 10:30 Troponin I < 0.015 < 0.015 < 0.015 (0-0.045) ng/ml Liver Function 07/11/19 Range/Units 21:10 Total Bilirubin 0.4 (0.2-1) mg/dl AST 21 (15-37) U/L ALT 25 (12-78) U/L Alkaline Phosphatase 149 H (45-117) U/L Albumin 3.3 L (3.4-5.0) gm/dl Medications Administered Current Inpatient Medications Acetaminophen (Tylenol) 650 mg PO Q4H PRN PRN Reason: Pain or Fever Stop: 08/11/19 01:37 Last Admin: 07/12/19 01:53 Dose: 650 mg Documented by: Aspirin (Ecotrin Ectab) 81 mg PO DAILY [facility] Stop: 08/11/19 08:59 Last Admin: 07/12/19 08:01 Dose: 81 mg Documented by: Atorvastatin Calcium (Lipitor) 20 mg PO QAM [facility] Stop: 08/11/19 08:59 Last Admin: 07/12/19 08:01 Dose: 20 mg Documented by: Ceftriaxone Sodium 2,000 mg/ (Dextrose) 70 mls @ 140 mls/hr IV Q24H [facility] Stop: 07/22/19 01:59 Last Infusion: 07/12/19 02:52 Dose: Infused Documented by: Isosorbide Mononitrate (Imdur Extended Rel) 30 mg PO QAM [facility] Stop: 08/11/19 12:59 Last Admin: 12/01/19 12:27 Dose: 30 mg Documented by: Lisinopril (Zestril) 5 mg PO QAM [facility] Stop: 08/12/19 08:59 Metoprolol Tartrate (Lopressor) 25 mg PO BID [facility] Stop: 08/11/19 20:59 Morphine Sulfate (Morphine Sulfate) 3 mg IV Q3H PRN PRN Reason: Pain Stop: 07/26/19 01:37 Last Admin: 07/12/19 02:51 Dose: 3 mg Documented by: Nitroglycerin (Nitrostat) 0.4 mg SL UD PRN PRN Reason: Chest Pain Stop: 08/11/19 01:37 Ondansetron HCl (Zofran) 4 mg IV Q6H PRN PRN Reason: Nausea Stop: 08/11/19 01:37 Phenol (Chloraseptic 1.4% [place]) 2 sprays MT Q4H PRN PRN Reason: Sore Throat Stop: 08/11/19 01:37 Last Admin: 07/12/19 02:10 Dose: 2 sprays Documented by:
[2019-07-12] MEDS ORDERED: LORATADINE 10 MG TAB PO ONE (13:04)
[2019-07-12] MEDS: cephALEXin 500 MG CAP PO SCH ×2 (13:43→19:17)
[2019-07-12] MEDS: METOPROLOL TARTRATE 25 MG TAB PO SCH (19:17)
[2019-07-13] MEDS ORDERED: NURSING DECISION MEDICATION ONE (00:01)
[2019-07-13] MEDS ORDERED: LORazepam 0.5 MG TAB PO STA (00:02)
[2019-07-13] MEDS: SODIUM CHLORIDE 0.65% NA SOLN 45 ML (OCEAN) PRN ×2 (00:17→08:41)
[2019-07-13] MEDS: BENZONATATE 100 MG CAPSULE PO PRN ×2 (00:41→08:40)
[2019-07-13] MEDS: ACETAMINOPHEN 325 MG TAB PO PRN (06:28)
[2019-07-13 07:34] LABS: Basophils # (auto) 0.04 K/uL (0-0.2); Basophils % (auto) 0.6 %; Eosinophils # (auto) 0.19 K/uL (0-0.5); Eosinophils % (auto) 3.1 %; Hematocrit (blood only) 39.2 % (42-52); Hemoglobin 13.4 g/dL (14.0-18.0); Immature Granulocytes # (auto) 0.02 K/uL (0.00-0.02); Immature Granulocytes % (auto) 0.3 %; Lymphocytes % (auto) 16.1 %; Mean Corpuscular Hemoglobin 31.5 pg (25-34); Mean Corpuscular Hgb Conc 34.2 g/dL (32-36); Mean Platelet Volume 10.3 fL (7.4-10.4); Monocytes # (auto) 0.62 K/uL (0.11-0.59); Neutrophils # (auto) 4.35 K/uL (1.4-6.5); Neutrophils % (auto) 69.9 %; Platelet Count 100 K/uL (130-400); RDW Coefficient of Variation 14.2 % (11.5-14.5); RDW Standard Deviation 47.5 fL (36.4-46.3); Red Blood Count 4.26 M/uL (4.7-6.1); White Blood Count 6.22 K/uL (4.8-10.8)
[2019-07-13 08:08] LABS: Calcium 8.9 mg/dl (8.5-10.1); Est GFR (African American) 120.3; Est GFR (Non-African American) 103.8; Magnesium 1.9 mg/dl (1.8-2.4); Potassium 3.7 mmol/L (3.5-5.1)
[2019-07-13] MEDS: cephALEXin 500 MG CAP PO SCH ×2 (08:40→14:34)
[2019-07-13] MEDS: ISOSORBIDE MONO EXTENDED REL 30 MG TABCR PO SCH (08:40)
[2019-07-13] MEDS: METOPROLOL TARTRATE 25 MG TAB PO SCH (08:40)
[2019-07-13] MEDS: ASPIRIN 81 MG ECTAB PO SCH (08:40)
[2019-07-13] MEDS: ATORVASTATIN 20 MG TAB PO SCH (08:41)
[2019-07-13] MEDS ORDERED: LISINOPRIL 5 MG TAB PO SCH (09:00)
--- NOTE | 2019-07-13 13:40 | Hospitalist Progress Note ---
Date of Service July 13, 2019 Assessment & Plan (1) Atypical chest pain: History of CAD with status post previous stent placement Presented with the atypical chest pain Has been very noncompliant with medications in fact he has not been taking any since February EKG and troponins were unremarkable Resting echocardiogram reveals normal left ventricular wall motion, normal right ventricular wall motion, and LVEF in the range of 65 to 70% unchanged compared to February 2019. Appreciate cardiology input and recommendation His medications have been reintroduced No more cardiac symptoms No further test as per the appliance service supervisor He will be discharged this afternoon (2) Hypertension: Blood pressure is controlled (3) Prostate cancer: History of prostate cancer 2 years ago and he treated with radiotherapy and chemo Latest PSA normal Likely the disease and is in remission Has URI with nasal congestion We will try some antihistamine in the hospital Likely has sinusitis Will start doxycycline DVT prophylaxis SCDs Increase ambulation Likely home this afternoon Subjective 07/12 The patient was seen and examined in telemetry unit 59 years old with history of CAD status post 3 stents and also history of prostate cancer seems to be in remission right now was admitted with the URI symptoms associated with chest pain Apparently he is not taking his cardiac medications for a while He complains to have congested sinuses this morning but denies any other symptoms 07/13 The patient was seen and examined in telemetry unit Complaints to have some nasal congestion secondary to recent URI Denies any chest pain and/or palpitation Review of Systems Review of Systems: All systems reviewed and are unremarkable except as noted below Constitutional: + body aches and + malaise; no fever Nasal congestion and sinus pain Physical Exam Physical Exam: No apparent distress at rest Constitutional: well developed, well nourished and + obese; no acute distress and not ill appearing Eyes: PERRL, conjunctivae normal, anicteric sclerae ENMT: external ear and nose normal, oropharynx normal Neck: trachea midline, no thyromegaly Respiratory: normal respiratory effort; no respiratory distress Auscultation: lungs clear to auscultation bilaterally Cardiovascular: Rate/Rhythm: regular rate and regular rhythm Heart Sounds: no murmur Gastrointestinal (Abdomen): Inspection/Auscultation: abdomen normal to inspection and normal bowel sounds Percussion/Palpation: abdomen soft; abdomen nontender Psychiatric: A+Ox3, euthymic affect Lymphatic: no cervical or axillary lymphadenopathy Results & Data Vital Signs (Past 12 Hours) Vital Signs Temp Pulse Pulse Resp BP BP Pulse Ox 07/13/19 12:02 37.3 C 60 18 126/75 95 07/13/19 08:00 88 07/13/19 07:00 36.8 C 73 19 113/73 94 07/13/19 03:26 36.6 C 65 20 130/67 96 Laboratory Results Short CBC 07/13/19 Range/Units 07:18 WBC 6.22 (4.8-10.8) K/uL Hgb 13.4 L (14.0-18.0) g/dL Hct 39.2 L (42-52) % Plt Count 100 L (130-400) K/uL BMP 07/13/19 07:18 Sodium 136 Potassium 3.7 Chloride 106 Carbon Dioxide 23 BUN 16 Creatinine 0.68 Glucose 108 H Calcium 8.9 Cardiac Enzymes 07/12/19 Range/Units 16:27 Troponin I < 0.015 (0-0.045) ng/ml Medications Administered Current Inpatient Medications Acetaminophen (Tylenol) 650 mg PO Q4H PRN PRN Reason: Pain or Fever Stop: 08/11/19 01:37 Last Admin: 07/13/19 06:28 Dose: 650 mg Documented by: Aspirin (Ecotrin Ectab) 81 mg PO DAILY [facility] Stop: 08/11/19 08:59 Last Admin: 07/13/19 08:40 Dose: 81 mg Documented by: [facility]vastatin [facility]: 08/11/19 08:59 Last Admin: 07/13/19 08:41 Dose: 20 mg Documented by: Benzonatate (Tessalon Perle) 100 mg PO TID PRN PRN Reason: Cough Stop: 08/12/19 00:01 Last Admin: 07/13/19 08:40 Dose: 100 mg Documented by: Cephalexin HCl (Keflex) 500 mg PO TID [facility] Stop: 07/22/19 13:59 Last Admin: 07/13/19 08:40 Dose: 500 mg Documented by: Isosorbide Mononitrate (Imdur Extended Rel) [facility] Stop: 08/11/19 12:59 Last Admin: 07/13/19 08:40 Dose: 30 mg Documented by: Lisinopril (Zestril) 5 mg PO QAM [facility] Stop: 08/12/19 08:59 Last Admin: 07/13/19 08:41 Dose: 5 mg Documented by: Metoprolol Tartrate (Lopressor) 25 mg PO BID [facility] Stop: 08/11/19 20:59 Last Admin: 07/13/19 08:40 Dose: 25 mg Documented by: Morphine Sulfate (Morphine Sulfate) 3 mg IV Q3H PRN PRN Reason: Pain Stop: 07/26/19 01:37 Last Admin: 07/12/19 13:47 Dose: 3 mg Documented by: Nitroglycerin (Nitrostat) 0.4 mg SL UD PRN PRN Reason: Chest Pain Stop: 08/11/19 01:37 Ondansetron HCl (Zofran) 4 mg IV Q6H PRN PRN Reason: Nausea Stop: 08/11/19 01:37 Phenol (Chloraseptic 1.4% [place]) 2 sprays MT Q4H PRN PRN Reason: Sore Throat Stop: 08/11/19 01:37 Last Admin: 07/12/19 02:10 Dose: 2 sprays Documented by: Sodium Chloride ([place] Nasal) 1 sprays NA PRN PRN PRN Reason: Dryness Stop: 08/12/19 00:11 Last Admin: 07/13/19 08:41 Dose: 1 sprays Documented by:
--- NOTE | 2019-07-13 18:35 | Discharge Summary ---
Date of Service July 13, 2019 Admission HPI Per Admitting Provider HISTORY OF PRESENT ILLNESS: This is a 59-year-old male with past medical history significant for CAD status post 3 stents in 30s, history of prostate cancer diagnosed about 2 years ago, recently followed with [facility] Hematology/Oncology, chronic back pain, depression, medication noncompliance, presents with chest pain. The patient was here in the hospital in February with chest pain. At that time, he was also not taking any medications. His echo was okay. Supposed to follow up with cardiology as outpatient for possible stress test, but seems to be not followed up. He was started on aspirin, statin, Imdur, lisinopril, Lopressor. The patient says after his medication ran out, he is not taking any medications and had not been followed with any doctors. He did not stop not long ago. He was also out of hospital, he also followed with [facility] Hematology/Oncology. He also has history of prostate cancer, diagnosed about 2 years ago at [facility] and about 9 weeks of radiation and about 3 months of . Saw [facility] Hematology/Oncology in March and as per epic notes there is no evidence of acute disease or disease progression and they want to follow up with repeat labs and bone scan in 3 months. The patient says today, he started to have some chest pain in the middle of the chest, sharp pains, radiating to his neck, about 7/10 in severity. The pain was more when walking associated with shortness of breath, dizziness, nausea and sweating which worried and came to the ER. He was also feeling cold. He also complains of sore throat started in the morning. No fevers.Denies any cough, no runny nose, has some headaches, mild dizziness, no blurred visions, no earache, no runny nose. No abdominal pain. Normal bowel and bladder movements. No diarrhea, no constipation, no hematuria, no burning micturition. Complains of ankle edema. His alcohol is 114 in the ER, he says because of holidays and family get together het took alcohol and last drank prior to this was 6 months ago and he says he did not get any withdrawal symptoms if not drinking.Also complains of pain pointing to both the nipples area, and it is more on palpation He has also complains of his chronic back pain and requests for pain medication . Admission Exam Per Admitting Provider GENERAL: The patient is alert and oriented, not in acute distress. VITAL SIGNS: Temperature 36.8, pulse 84, respiratory rate 20, blood pressure 113/70, oxygen 94% room air. HEENT: No pallor, no icterus. Pupils equal, round, reactive to light. NECK: No JVD, no neck masses, no carotid bruits. CARDIOVASCULAR: S1, S2 heard, regular rate and rhythm, no murmur, no gallop, some point tenderness in the rose-nipple region.Mild enlargement of nipple area. RESPIRATORY SYSTEM: Normal AP diameter. No accessory muscle use. No wheezing, no crackles. ABDOMEN: Soft, bowel sounds present, nontender. No distention. CENTRAL NERVOUS SYSTEM: Cranial nerves II-XII grossly nonfocal. EXTREMITIES: Ankle edema present, no erythema seen. Principal Diagnosis Atypical chest pain-no ACS,, recent URI Discharge Exam Constitutional well developed, well nourished and + obese; no acute distress and not ill appearing Eyes PERRL, conjunctivae normal, anicteric sclerae ENMT external ear and nose normal, oropharynx normal Neck trachea midline, no thyromegaly Respiratory normal respiratory effort; no respiratory distress Auscultation: lungs clear to auscultation bilaterally Cardiovascular Rate/Rhythm: regular rate and regular rhythm Heart Sounds: no murmur Gastrointestinal (Abdomen) Inspection/Auscultation: abdomen normal to inspection and normal bowel sounds Percussion/Palpation: abdomen soft; abdomen nontender Psychiatric A+Ox3, euthymic affect Lymphatic no cervical or axillary lymphadenopathy Discharge Data Allergies Allergy/AdvReac Type Severity Reaction Status Date / Time No Known Allergies Allergy Verified 07/11/19 22:24 Consultations 07/11/19 23:48 ED Decision to Admit Stat 07/12/19 01:38 Consult Case Management - Discharge Planning Routine 07/12/19 08:00 Consult Cardiology Routine Ordered Studies 07/11/19 22:59 CT angio chest PE protocol Urgent Hospital Course (1) Atypical chest pain: History of CAD with status post previous stent placement Presented with the atypical chest pain Has been very noncompliant with medications in fact he has not been taking any since February EKG and troponins were unremarkable Resting echocardiogram reveals normal left ventricular wall motion, normal right ventricular wall motion, and LVEF in the range of 65 to 70% unchanged compared to February 2019. Appreciate cardiology input and recommendation His medications have been reintroduced No more cardiac symptoms No further test as per the telephone cleaner He will be discharged this afternoon (2) Hypertension: Blood pressure is controlled (3) Prostate cancer: History of prostate cancer 2 years ago and he treated with radiotherapy and chemo Latest PSA normal Likely the disease and is in remission Has URI with nasal congestion We will try some antihistamine in the hospital Likely has sinusitis Will start doxycycline DVT prophylaxis SCDs Increase ambulation Likely home this afternoon Total Time Total Time Spent Total Time Spent (In Minutes): 35 minutes Total Time Includes: Examination of the Patient, Discharge Planning, Medication Reconciliation and Communication With Other Providers Discharge Plan Discharge Items Patient Disposition: Home - Self-Care Reason For Visit: CHEST PAIN Discharge Diagnosis: Atypical chest pain-no ACS,, recent URI Condition on Discharge: Good Activity: Resume your previous activity Non-emergency contact: Primary Care Provider Call non-emergency contact if: you have any medication questions and your symptoms worsen Follow-up/Referrals: PCP,MICHELLE [Primary Care Provider] - 07/17/19 12:45 pm (Your appointment is with Dr. Handley.) Diet: Heart Healthy Addtl Attending Provider Instructions: Please take your medications as prescribed Pending Studies at Discharge: No Stand-Alone Forms: My [facility], Smoking Cessation Medications and DC Order Prescriptions: New atorvastatin 20 mg Tablet 20 mg PO QAM 30 Days Qty: 30 RF: 0 isosorbide mononitrate 30 mg Tablet Extended Release 24 Hr 30 mg PO QAM 30 Days Qty: 30 RF: 0 aspirin [Ecotrin Low Strength] 81 mg Tablet,Delayed Release (Dr/Ec) 81 mg PO DAILY 30 Days Qty: 30 RF: 0 cephalexin 500 mg Capsule 500 mg PO TID 5 Days Qty: 15 RF: 0 nitroglycerin [Nitrostat] 0.4 mg Tablet, Sublingual 0.4 mg sublingual UD PRN (Reason: chest pain) 30 Days Qty: 25 RF: 0 lisinopril [Zestril] 5 mg Tablet 5 mg PO QAM 30 Days Qty: 30 RF: 0 metoprolol tartrate 25 mg Tablet 25 mg PO BID 30 Days Qty: 60 RF: 0 No Action No Known Home Medications RF: 0 Discharge Orders: Discharge Order (Routine); Ordered 07/13/19 Ordered By: Mi Kirk Admission Data Admit Date/Time: 07/12/19 01:14 Attending Provider: Mi Kirk Admit Provider: Han Galindo Primary Care Provider: PCP,NO Other Providers: Han Galindo ; Kraig Deleon Other Interventions: Discharge Summary Assessment (RN) Last Done: 07/13/19 14:26 DC Date/Time DO NOT enter until pt leaves facility: 07/13/19 15:41
== END 2019-07-13 15:41 | disposition home or self-care (01) ==
LOC: 2S 21:16 → ED 21:16 → 2S 07-12 01:28

== ENCOUNTER 2019-08-01 22:41 | Inpatient (IN) ==
[2019-08-01 23:06] LABS: Appearance Urine Clear (Clear); Bacteria Urine Automated Negative (Negative); Bilirubin Urine Negative (Negative); Blood Urine Trace (Negative); Cast Urine Automated 0 /lpf (0-5); Color Urine Yellow; Epithelial Cell Urine Auto 0-5 /lpf (0-5); Glucose Urine UA Negative (Negative); Ketones Urine Negative (Negative); Leukocyte Esterase Urine Negative (Negative); Nitrite Urine Negative (Negative); Protein Urine Negative (Negative); RBC Urine Automated 0-4 /hpf (0-4); Specific Gravity Urine 1.007 (1.000-1.030); Urobilinogen Urine Negative (Negative)
[2019-08-01 23:29] LABS: Amphetamines+Metham, Urine Neg (Neg); Barbiturates, Urine Neg (Neg); Benzodiazepine, Urine Neg (Neg); Cocaine, Urine Neg (Neg); MDMA (Ecstacy), Urine Neg (Neg); Methadone, Urine Neg (Neg); Opiate, Urine Neg (Neg); Phencyclidine, Urine Neg (Neg)
[2019-08-01 23:53] LABS: Albumin Level 3.3 gm/dl (3.4-5.0); Basophils # (auto) 0.03 K/uL (0-0.2); Basophils % (auto) 0.4 %; Eosinophils # (auto) 0.14 K/uL (0-0.5); Eosinophils % (auto) 1.8 %; Est GFR (African American) 113.7; Est GFR (Non-African American) 98.1; Hematocrit (blood only) 41.1 % (42-52); Hemoglobin 14.3 g/dL (14.0-18.0); Immature Granulocytes # (auto) 0.03 K/uL (0.00-0.02); Immature Granulocytes % (auto) 0.4 %; Lymphocytes % (auto) 24.7 %; Mean Corpuscular Hgb Conc 34.8 g/dL (32-36); Mean Corpuscular Volume 91.9 fL (80-100); Mean Platelet Volume 10.9 fL (7.4-10.4); Monocytes # (auto) 0.65 K/uL (0.11-0.59); Monocytes % (auto) 8.5 %; Neutrophils # (auto) 4.94 K/uL (1.4-6.5); Neutrophils % (auto) 64.2 %; Platelet Count 146 K/uL (130-400); Potassium 4.2 mmol/L (3.5-5.1); RDW Coefficient of Variation 13.6 % (11.5-14.5); RDW Standard Deviation 45.5 fL (36.4-46.3); Red Blood Count 4.47 M/uL (4.7-6.1); White Blood Count 7.69 K/uL (4.8-10.8)
[2019-08-02 00:03] LABS: Albumin Globulin Ratio 0.7 (0.9-2); Bilirubin,Total 0.3 mg/dl (0.2-1); Globulin 4.9 gm/dl (2.5-4.0); Thyroid Stimulating Hormone 1.02 uIu/ml (0.300-4.500); Total Protein 8.2 gm/dl (6.4-8.2)
[2019-08-02 01:04] LABS: Acetaminophen < 2 ug/ml (10-30)
--- NOTE | 2019-08-02 01:13 | Emergency Department Note ---
Entered by Adrianne Mcrae acting as a scribe for History of Present Illness General Chief complaint: Mental Health Evaluation Stated complaint: MENTAL HEALTH EVALUATION Time Seen by Provider: 08/01/19 23:04 Source: patient History of Present Illness Onset (ago): hour(s) (just prior to arrival) Location: head Pain Consistency: + other (episode) Quality: + other (need for a mental health evaluation) Associated symptoms: + other (positive suicidal statements) The patient is a 59 year old male who presents to the Emergency Room with complaints of an episode of a need for a mental health evaluation that began just prior to arrival. The patient states that tonight he got into an argument with his son and made statements that he was going to kill himself. The patient states that he did not actually mean these statements and just said them because he was angry. He states that he got into an argument with his son because the patient was talking to his friend and his son believed the patient was talking badly about him. The patient reports that both him and his son were drinking alcohol tonight. The patient states that he is currently living with his son and states that he only drinks alcohol when his son "gets on his nerves". He denies use of any other drugs. The patient states that he was previously on medications for anxiety and depression but states that he has not been able to get to a doctor to get this. The patient states that he has a history of prostate cancer, hypertension, and coronary artery disease. Home Medications Home Medications Medication Instructions Recorded Confirmed Type aspirin [Ecotrin Low Strength] 81 mg PO DAILY 30 Days #30 tab 07/13/19 08/01/19 Rx atorvastatin 20 mg PO QAM 30 Days #30 tab 07/13/19 08/01/19 Rx isosorbide mononitrate 30 mg PO QAM 30 Days #30 tab 07/13/19 08/01/19 Rx lisinopril [Zestril] 5 mg PO QAM 30 Days #30 tab 07/13/19 08/01/19 Rx metoprolol tartrate 25 mg PO BID 30 Days #60 tab 07/13/19 08/01/19 Rx nitroglycerin [Nitrostat] 0.4 mg SUBLINGUAL UD PRN 30 Days 07/13/19 08/01/19 Rx #25 tab albuterol sulfate 2 puff INHALATION Q4H PRN 08/01/19 08/01/19 History fluticasone propion-salmeterol 1 inh INHALATION BID 08/01/19 08/01/19 History [Wixela Inhub] Allergies Allergy/AdvReac Type Severity Reaction Status Date / Time No Known Allergies Allergy Verified 08/01/19 23:51 Past Med/Surg History Medical History Hypertension No significant family history Prostate cancer Surgical History No significant past surgical history Family History Other No pertinent family history in first degree relatives Social History Preferred Language: Estonian Communication Ability: Effective 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 and A total of 10 systems reviewed and were otherwise negative Physical Exam Vital Signs Vital Signs - 24 hr 08/01/19 22:43 08/02/19 00:11 Temperature 36.7 C Temperature Source Oral Pulse Rate 117 H Pulse Rate [Right Finger] 88 Respiratory Rate 18 18 Respiratory Effort / Characteristics Non-Labored Spontaneous Non-Labored Spontaneous Respiratory Depth Normal Normal Respiratory Pattern Regular Regular Blood Pressure 162/83 H Blood Pressure [Right Arm] 127/62 Blood Pressure Mean 109 Blood Pressure Mean [Right Arm] 83 Blood Pressure Position Sitting Blood Pressure Position [Right Arm] Lying Pulse Oximetry 94 97 Oxygen Delivery Method Room Air Room Air Sepsis Recent Fever Within 48 Hours No Sepsis Action Taken by Nursing No Action Required General: Smells of alcohol but cooperative on exam. HEENT: Head - normocephalic and atraumatic Pupils are equal, round, and reactive to light. Extraocular eye muscles are intact, and sclera are anicteric. Nose - moist nasal mucosa without discharge. Mouth - moist buccal mucosa. Oropharynx is nonerythematous and there is no tonsillar exudate or edema noted. Neck: Supple; no cervical lymphadenopathy. Heart: Regular rate and rhythm. There is a normal S1 and S2 with no murmurs, clicks, or gallops appreciated. Lungs: Clear to auscultation bilaterally with no wheezes, rales, or rhonchi. Abdomen: Soft, completely nontender, nondistended, with good bowel sounds. There are no palpable pulsatile masses or hepatosplenomegaly. There is no guarding, rigidity, or rebound noted. Extremities: No evidence of cyanosis, clubbing, or edema. There are easily palpable peripheral pulses. Skin: warm and dry with good turgor and no rashes. Psych: Denying SI and HI. Has rapid pressured speech. Course Course 2313: Past medical records reviewed. The patient was evaluated in room A5. A complete history and physical exam was performed. As above. 0111: The psychiatric nurse case management evaluated the patient. The patient states that he would like to be further evaluated for severe depression. 0237: The patient has been accepted for further evaluation by [facility]. Administered Medications Medical Decision Making Differential Diagnosis Differential diagnoses include alcohol intoxication, suicidal ideation, mood disorder, thought disorder, medication noncompliance, and others were considered. Medical Records Attestation: I reviewed the patient's medical records. Home Medications Current Medication List: was personally reviewed by me Laboratory Data Attestation: I reviewed the patient's lab results. Result diagrams: 08/01/19 22:57 08/01/19 22:57 Lab Results 08/01/19 08/01/19 08/01/19 Range/Units 22:50 22:50 22:57 WBC 7.69 (4.8-10.8) K/uL RBC 4.47 L (4.7-6.1) M/uL Hgb 14.3 (14.0-18.0) g/dL Hct 41.1 L (42-52) % MCV 91.9 (80-100) fL MCH 32.0 (25-34) pg MCHC 34.8 (32-36) g/dL RDW Std Deviation 45.5 (36.4-46.3) fL RDW Coeff of Steve 13.6 (11.5-14.5) % Plt Count 146 (130-400) K/uL MPV 10.9 H (7.4-10.4) fL Immature Gran % (Auto) 0.4 % Neut % (Auto) 64.2 % Lymph % (Auto) 24.7 % [place] % (Auto) 8.5 % Eos % (Auto) 1.8 % Baso % (Auto) 0.4 % Immature Gran # (Auto) 0.03 H (0.00-0.02) K/uL Neut # (Auto) 4.94 (1.4-6.5) K/uL Lymph # (Auto) 1.90 (1.2-3.4) K/uL [place] # (Auto) 0.65 H (0.11-0.59) K/uL Eos # (Auto) 0.14 (0-0.5) K/uL Baso # (Auto) 0.03 (0-0.2) K/uL Absolute Nucleated RBC 0.00 (0-0) K/uL Nucleated RBC % (auto) 0.0 % Sodium (136-145) mmol/L Potassium (3.5-5.1) mmol/L Chloride (98-107) mmol/L Carbon Dioxide (21-32) mmol/L Anion Gap (3-11) BUN (7-18) mg/dl Creatinine (0.6-1.4) mg/dl Est Cr Clr Drug Dosing ml/min Est GFR ( Amer) Est GFR (Non-Af Amer) BUN/Creatinine Ratio (10-20) Glucose (70-99) mg/dl Calcium (8.5-10.1) mg/dl Total Bilirubin (0.2-1) mg/dl AST (15-37) U/L ALT (12-78) U/L Alkaline Phosphatase (45-117) U/L Total Protein (6.4-8.2) gm/dl Albumin (3.4-5.0) gm/dl Globulin (2.5-4.0) gm/dl Albumin/Globulin Ratio (0.9-2) TSH (0.300-4.500) uIu/ml Urine Color Yellow Urine Appearance Clear (Clear) Urine pH 7.0 (4.5-7.5) Ur Specific [place] 1.007 (1.000-1.030) Urine Protein Negative (Negative) Urine Glucose (UA) Negative (Negative) Urine Ketones Negative (Negative) Urine Blood Trace H (Negative) Urine Nitrite Negative (Negative) Urine Bilirubin Negative (Negative) Urine Urobilinogen Negative (Negative) Ur Leukocyte Esterase Negative (Negative) Urine WBC (Auto) 1-5 (0-5) /hpf Urine RBC (Auto) 0-4 (0-4) /hpf U Hyaline Cast (Auto) 0 (0-5) /lpf U Epithel Cells (Auto) 0-5 (0-5) /lpf Urine Bacteria (Auto) Negative (Negative) Salicylates (2.8-20) mg/dl Urine Opiates Screen Neg (Neg) Ur Methadone, Qual Neg (Neg) Acetaminophen (10-30) ug/ml Urine Barbiturates Neg (Neg) Ur Phencyclidine (PCP) Neg (Neg) U Amphetamin/Meth Scrn Neg (Neg) MDMA (Ecstasy) Screen Neg (Neg) U Benzodiazepines Scrn Neg (Neg) Ur Cocaine Metabolite Neg (Neg) U Marijuana (THC) Screen Neg (Neg) Ethyl Alcohol mg/dL (0-3) mg/dl 08/01/19 08/01/19 08/01/19 Range/Units 22:57 22:57 22:57 WBC (4.8-10.8) K/uL RBC (4.7-6.1) M/uL Hgb (14.0-18.0) g/dL Hct (42-52) % MCV (80-100) fL MCH (25-34) pg MCHC (32-36) g/dL RDW Std Deviation (36.4-46.3) fL RDW Coeff of Steve (11.5-14.5) % Plt Count (130-400) K/uL MPV (7.4-10.4) fL Immature Gran % (Auto) % Neut % (Auto) % Lymph % (Auto) % [place] % (Auto) % Eos % (Auto) % Baso % (Auto) % Immature Gran # (Auto) (0.00-0.02) K/uL Neut # (Auto) (1.4-6.5) K/uL Lymph # (Auto) (1.2-3.4) K/uL [place] # (Auto) (0.11-0.59) K/uL Eos # (Auto) (0-0.5) K/uL Baso # (Auto) (0-0.2) K/uL Absolute Nucleated RBC (0-0) K/uL Nucleated RBC % (auto) % Sodium 140 (136-145) mmol/L Potassium 4.2 (3.5-5.1) mmol/L Chloride 108 H (98-107) mmol/L Carbon Dioxide 26 (21-32) mmol/L Anion Gap 6.0 (3-11) BUN 17 (7-18) mg/dl Creatinine 0.78 (0.6-1.4) mg/dl Est Cr Clr Drug Dosing 122.0 ml/min Est GFR ( Amer) 113.7 Est GFR (Non-Af Amer) 98.1 BUN/Creatinine Ratio 21.0 H (10-20) Glucose 109 H (70-99) mg/dl Calcium 9.0 (8.5-10.1) mg/dl Total Bilirubin 0.3 (0.2-1) mg/dl AST 20 (15-37) U/L ALT 22 (12-78) U/L Alkaline Phosphatase 169 H (45-117) U/L Total Protein 8.2 (6.4-8.2) gm/dl Albumin 3.3 L (3.4-5.0) gm/dl Globulin 4.9 H (2.5-4.0) gm/dl Albumin/Globulin Ratio 0.7 L (0.9-2) TSH 1.020 (0.300-4.500) uIu/ml Urine Color Urine Appearance (Clear) Urine pH (4.5-7.5) Ur Specific [place] (1.000-1.030) Urine Protein (Negative) Urine Glucose (UA) (Negative) Urine Ketones (Negative) Urine Blood (Negative) Urine Nitrite (Negative) Urine Bilirubin (Negative) Urine Urobilinogen (Negative) Ur Leukocyte Esterase (Negative) Urine WBC (Auto) (0-5) /hpf Urine RBC (Auto) (0-4) /hpf U Hyaline Cast (Auto) (0-5) /lpf U Epithel Cells (Auto) (0-5) /lpf Urine Bacteria (Auto) (Negative) Salicylates 2.0 L (2.8-20) mg/dl Urine Opiates Screen (Neg) Ur Methadone, Qual (Neg) Acetaminophen < 2 L (10-30) ug/ml Urine Barbiturates (Neg) Ur Phencyclidine (PCP) (Neg) U Amphetamin/Meth Scrn (Neg) MDMA (Ecstasy) Screen (Neg) U Benzodiazepines Scrn (Neg) Ur Cocaine Metabolite (Neg) U Marijuana (THC) Screen (Neg) Ethyl Alcohol mg/dL 150.9 H (0-3) mg/dl Blood Pressure Blood Pressure Findings: Elevated blood pressure Blood Pressure Disposition: elevated BP felt to be situational MDM Narrative The patient is a 59 year old male who presents to the Emergency Room with co mplaints of an episode of a need for a mental health evaluation that began just prior to arrival. The patient admits to alcohol use this evening. He does describe being depressed as he has been living with his son for the past 18 months. He describes frequent arguments and disagreements with his son. He states that his son is always accusing him of trying to be with the son's ex- girlfriend. The patient states that this is not true. He describes having a history of prostate cancer status post radiation. He describes it as incurable. The patient is willing to admit himself voluntarily for inpatient psychiatric care. Impression & Plan Suicidal ideation, Alcohol intoxication Discharge Plan Visit Data *Final* Discharge Date/Time: 08/02/19 03:55 Chief Complaint: Mental Health Evaluation Stated Complaint: MENTAL HEALTH EVALUATION ED Provider: Aileen Strickland Discharge Problem: Suicidal ideation, Alcohol intoxication Patient Disposition: Admitted As Inpatient Discharge Instructions Interventions: ED Discharge Assessment Last Done: 08/02/19 03:55 Discharge Problem: Alcohol intoxication Qualifiers: Complication of substance-induced condition: uncomplicated Qualified Code(s): F10.920 - Alcohol use, unspecified with intoxication, uncomplicated The scribe's documentation has been prepared under my direction and personally reviewed by me in its entirety. I confirm that the note above accurately reflects all work, treatment, procedures, and medical decision making performed by me.
[2019-08-02 03:56] VITALS: O2SAT 96
[2019-08-02] MEDS ORDERED: BISMUTH SUBSALICYLATE PER ML OMNICELL CHARGE PO PRN (04:07)
[2019-08-02] MEDS ORDERED: ALUMINUM/MAGNESIUM SUSP 30 ML UDC PO PRN (04:07)
[2019-08-02] MEDS ORDERED: SODIUM CHLORIDE 0.65% NA SOLN 45 ML (OCEAN) PRN (04:07)
[2019-08-02] MEDS ORDERED: MAGNESIUM HYDROXIDE SUSP 30 ML UDC PO PRN (04:07)
[2019-08-02] MEDS: ACETAMINOPHEN 325 MG TAB PO PRN ×2 (04:30→21:49)
[2019-08-02] MEDS ORDERED: ALBUTEROL HFA 8 GM INHALER INH PRN (05:10)
[2019-08-02] MEDS: ISOSORBIDE MONO EXTENDED REL 30 MG TABCR PO SCH (12:20)
[2019-08-02] MEDS: FLUOXETINE HCL 20 MG CAP PO SCH (12:20)
[2019-08-02] MEDS: ASPIRIN 81 MG ECTAB PO SCH (12:20)
[2019-08-02] MEDS: lisinopriL 5 MG TAB PO SCH (12:20)
[2019-08-02] MEDS: ATORVASTATIN 20 MG TAB PO SCH (12:20)
[2019-08-02] MEDS: METOPROLOL TARTRATE 25 MG TAB PO SCH ×2 (12:20→21:26)
--- NOTE | 2019-08-02 14:01 | History & Physical ---
Date of Service August 02, 2019 Impression / Recommendations Impression Patient is a 59yo white male living in [place] with his son. THis pateint struggles wtih depression "for a long time" but also has not been able to consistnetly engage in treatment either of recent. He reports transporation is a barrier for his difficulty engaging in all medical care. He presently meets criteria for MDD recurrent moderate, and concern for alcohol abuse r/o dependence as he continues to drink despite many concurrent health concerns and minimizes his use. In regards to inpatient he did make Suicidal statements while intoxicated that he denies feeling suicidal today, but then also denied prior suicide attempt noted in records until overtly asked. I do not know if he is being truthful today or minimizing based on this discrepancy.It is unclear if patient is a poor historian due to longstanding limited investment into the details of life, vs. poor concentration due to depression, vs. beginning of a cognitive concern (from alcohol or age), or personality traits, but he is a poor historian nonetheless. He has many risk factors for suicide. Will consider requesting records from collateral history from patient's son and observation on the locked unit, and attempts to mitigate risk factors prior to discharge. Inpatient care is least restrictive and most appropriate level of care at this time. (1) Major depressive disorder: 08/02 - inpatient schaeffer, milieu, group therapy, resume prozac 20mg and advance to 40mg in a few days (will defer to weekday team) - observe behavior and congruence of safety report and mood , and gather collateral - attempt to facilitate aftercare and consider giving he and family information on [facility] to facilitate f/u with all medical care (2) Alcohol abuse: 08/02 - qshift vitals given discrepant alcohol use report, continue to recommend he reduce and ideally abstain from alcohol given health issues, and relationship conflicts this is causing. I did note to patient that his weight, andhis breast tissue may both be increased by ongoing drinking of alcohol. (3) Back pain: prn tylenol available on unit, refer for f/u with PCM at time of discharge (4) Prostate cancer: per 02/2019, and 07/12/[address] scan and brain MRI negative for mets, apparently notation in 07/12/19 admission indicates 03/2019 [facility] noted indicated need for bone scan in 3months that has not been performed, refer to f/u with [facility] if son does not already have record of such defer to heme/onc to comment on ongoing hot flashes and breast tenderness that has been >6months and reported to them by patient as lasting SE of prior treatment (5) Hypertension: 08/02 - resume metoprolol (6) CAD (coronary artery disease): 08/02 - resume atrovastatin, and isosorbide, at home he has SL nitro, will add that to prn list here Inventory Assets Strengths: willing to take medications willing to discuss options to increase access to care Needs: reduce alcohol improved social connections improved access/and f/u with medical and psychological care Risk Factors Assessment Male: Yes : Yes Do You Have Access To A Gun?: No Health Problems: Yes Mental Health Diagnoses: Yes Substance Use Disorders: Yes Previous Attempt: Yes Family History of Suicide: No Previous Psychiatric Hospitalization: No Hopelessness: Yes Smoker: Yes (former) Protective Factors Assessment Orthodoxy Beliefs: No : No Responsible for Young Children: No Employed: No Stable Relationships: No Supportive Family: No Good Rapport with Provider: No Psychiatric History Identifying Data NEMESIO REZA is a 59-year-old M who currently lives in [facility] with his son, has a history of MDD and multiple medical concerns who was admitted on 08/02/19 03:23 on a 201 voluntary commitment for suicidal statements made to his son while intoxicated. Chief Complaint "I'm here because I am depressed". History of Present Illness The patient is a 65yo white male who has h/o MDD, alcohol abuse, pros kunz Cancer, CAD and CLBP who presents by police last night to the [facility] ER after he made statements to his son "I 'd rather be than live with this kind of stress" "sometimes I dont care if I live or " He was admitted under 201 voluntary admission after he was consented when he was below the legal limit of alcohol by timeline. He stated to nursing this AM, "I am not suicidal I just said that," and to this provider this afternoon "you know you say things when you are angry you don't mean." Patient is a poor historian, and shares very minimal and vague information some of which is discrepant from the ER record last night, and some of which is discrepant from the psychiatry consultation dated 02/2019 by Ms Lincoln, the psychiatric PA here at [facility] In summary of available records and interview iwth the patient his history is as follows: Patient notes he has been depressed "for years" and that his primary care in [place] has tried many medications. He however cannot recall names or doses nor recognition by given options of names. He first states "none of them worked." However later in the visit he noted he did take the prozac 20mg offered at his 02/2019 admission "until it ran out" and "it helped some but not enough....I need something stronger" He denies having side effects and states his poor sleep remained unchanged oon prozac vs. off. He reports poor sleep longstanding with combination of difficulty falling and staying asleep. He wakes up often to acid reflux, and to urinate, and has hot flashes and sweating which he reports is a lingering side effect of his prostate cancer treatments. He reports low interest, low energy, poor concentration, anhedonia, low motivation, but denies SI and continues to maintain that he did not mean the things he said while intoxicated. He denies h/o SA to this provider and when provider asked about SA disclosed at his 02/2019 consultation visit where he shared he cut his wrist with hacksaw, he says "oh, so I was not going to go there.....but here it is," and reveals transverse scar on left wrist, "ya, that was depression." He states his physical health is his biggest stressor and trigger for depression. He maintains that he has prostate cancer s/p radiation (9 weeks,) and hormones (3months) and that is was "hell" and not curable he then "gave up." Most notably he was frustarted that he did not know it was not curable, and further that he lost erectile functions "feel like less of a man." He does not recall when his next Hem/Onc visit is. He did not recall having been to the [facility]/Oncologist in March 2019 (referenced in his 07/12 [facility] hospitalization notes) and is sure he has not had the 3month bone scan recommended. He does recall having scans while inpatient medically that have shown negative chest CT and negative spine for signs of mets. He shares about having sweats "like a woman in menopause" and also breast tenderness that is unbearable. He does not recall if he shared this with his oncologist and what the explanations/recommendations were. He has been off his medications for CAD, HTN, HLP and GERD as he was unable to get to his PCM appt after his 07/13 [facility] discharge. Per records it was to be with Dr Bingham 07/17/19. He states "my son got a message for some appt and rescheduled it for August but I don't know which one it was" He states he has not been able to attend his medical visits due to his son traveling. He does not drive "due to my disabilities." He attended his medical appointments in [place] via some form of insurance paid transportation. He applied for disability in [place] but states it was disrupted by his move to [place] and "I have to repeat it all." He supports himself on medicaid and food stamps. He minimizes alcohol use, stating to this provider today "i have alcohol 1-2 times a month, 2-3 drinks." provider noted that he reported having 4-5 drinks last night in the ER, and hestates "maybe 4" and that he said he has 10-15 beers a week. HIs February consult note indicates that he has cut down significantly from higher past use prior to that. He denies s/sx of shakes/sweats or complicated withdrawal when away from alcohol, no seizures. He denies smoking at this time, "I quit several years ago" on reference to the Chantix script in June he then states "well I smoked again for a little bit and quit after I was in the hospital" presumably his 07/12-07/13 admission to [facility]. Psychiatric ROS: - he denies s/sx of psychosis, now or in the past, and denies violence towards others - he denies DIGFAST sx of kiara, or s/sx of mixed states - He states he does worry "about life" wishing he would have made different choices along the way, but denies s/sx of SELENE, or panic or agoraphobia, or OCD to this provider. - he denies disciplinary issues in school, but does note he did not like school cannot recall if he had focus or attention concerns - he is overweight and pre-diabetic but denies eating d/o behaviors, states back pain limits his exercise Past Psychiatric History Previous Psych History: states he has been on many meds through PCM does not recall names or doses took prozac 20mg for a month in 2019 s/p 02/2019 psych consult rec, helped some, no clear SE took hydroxyzine 50mg same time "not sure it helped" no psychiatrist in past,no therapist, PCM prescribed in past, no current PCM SA by cutting wrist, no care, did not tell anyone Current Psychiatric Diagnosis: None reported Previous Psych Admissions: denies Do You Have Access To A Gun?: No Describe Attempts in the Past: Ideations, no attempts Past Head Trauma/Neuro History History of Concussion/Seizure: No Allergies Allergy/AdvReac Type Severity Reaction Status Date / Time No Known Allergies Allergy Verified 08/01/19 23:51 Home Medications Home Medications Medication Instructions Recorded Confirmed Type aspirin [Ecotrin Low Strength] 81 mg PO DAILY 30 Days #30 tab 07/13/19 08/01/19 Rx atorvastatin 20 mg PO QAM 30 Days #30 tab 07/13/19 08/01/19 Rx isosorbide mononitrate 30 mg PO QAM 30 Days #30 tab 07/13/19 08/01/19 Rx lisinopril [Zestril] 5 mg PO QAM 30 Days #30 tab 07/13/19 08/01/19 Rx metoprolol tartrate 25 mg PO BID 30 Days #60 tab 07/13/19 08/01/19 Rx nitroglycerin [Nitrostat] 0.4 mg SUBLINGUAL UD PRN 30 Days 07/13/19 08/01/19 Rx #25 tab albuterol sulfate 2 puff INHALATION Q4H PRN 08/01/19 08/01/19 History fluticasone propion-salmeterol 1 inh INHALATION BID 08/01/19 08/01/19 History [Shravan Hoover] Family History Family History of: Doesn't Know Family Mental Health History Comment: said in previous hx father had alcholism Alcohol History Hx of Alcohol Use Over the Past 12 Months: Yes (social, not daily. "maybe 10 drinks per week if that") AUDIT Total Score: 4 gives variable history from 3-4 1-2 times a month, up to 10-15 beers a week (which is cut down from 10+ drinks a night in the past) Smoking Use Have You Smoked or Used Tobacco Products in the Last 30 Days: No tobacco type: cigarettes (states he quit several years ago, relapse briefly 2019 and quit again) Smoking Status: Former smoker Substance History Hx of Prescription Med Misuse Over the Past 12 Months: No Hx of Over the Counter Med Misuse Over the Past 12 Months: No Hx of Inhalent Misuse Over the Past 12 Months: No Hx of Organic Substance Use Over the Past 12 Months: No Hx of Illegal Substances/Street Drug Use Over Past 12 Months: No Problems as a Result of Past Substance Use: None Identified Personal History Living Arrangements: Home Living Arrangements Comments: Lives at son's home in [place] with son's GF and their 3 children. Says it is difficult because son drinks and is unkind and fights with him. Born In: [place] Childhood: Born and raised in [place]. Parents when patient was 9- 10yo mainly lived with his mother. Did not like school did poorly but denies disciplinary concerns. 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 his second and after 23 years they are not officially . He lived with his dtr in [place] for a time, then ~18months ago he moved to [place] to live with his son, as above. He states he has not worked outside of his home for "a couple years" tried to apply for disability for his back pain and prostate cancer and that this was dis rupted by his move to [place] "Now I have to start all over" Beliefs That Will Affect Care: None Current Legal Problems: No Hx Legal Problems: No Hx Traumatic Life Events: No Patient History Medical History (Updated 08/02/19 @ 14:41 by Pat Mas MD) Hypertension No significant family history Prostate cancer Surgical History (Updated 08/02/19 @ 14:41 by Pat Mas MD) No significant past surgical history Stented coronary artery Family History (Updated 08/02/19 @ 14:42 by Pat Mas MD) Unknown Cancer brother and father had cancer (type not known at this time) Other No pertinent family history in first degree relatives Social History Preferred Language: Yoruba Communication Ability: Effective Juvenile Justice Officer Required: No Beliefs That Will Affect Care: None Current Living Situation: Alone Feels Safe at Home: Yes Smoking Status: Former smoker Tobacco Type: cigarettes (states he quit several years ago, relapse briefly 2019 and quit again) ; Hx Alcohol Use: No Hx Substance Use: No Review of Systems Review of Systems: Chest pain with exertion back pain, chronic worse wtih prolonged activity breast tenderness hot flashes snoring and psychiatrist sx as noted above Remainder of 10 system ROS are unremarkable at this time Physical Exam Mental Examination: Physical exam performed by Dr Strickland on 08/01/19 in the [facility] ER was reviewed and accepted for purposes of this admission Psychiatric: Orientation: alert and oriented x 3 Apperance: + disheveled poor attention to detail spots on clothes, balding but remaining hair not consistently groomed, poor dentition with many missing teeth, obese Eye Contact: good eye contact Motor Behavior: steady gait and station and no abnormal motor movements Speech: normal rate/rhythm/volume of speech gruff tone Affect: + blunted affect Mood: + depressed mood Thought Process: goal directed thought process, + circumstantial thought process and + tangential thought process tendency to answer questions quickly and superficially, giving variable history unclear if this is because he is inattentive or due to poor recall or attempting to minimize history at times focus on the impact of his cancer treatments on his life, minimal attention to other aspects of his history or person unless directly asked and maintained on a given topic Suicidal Thoughts: denies suicidal thoughts states he did not mean what he said last night, however also denies prior suicidal attempts until confronted with history then reveals scars from prior attempt Homicidal Thoughts: denies homicidal thoughts Hallucinations: no auditory hallucinations and no visual hallucinations poor recall for recent or remote information on medical care or past psychiatric care or history, timeline is poor for recent events Estimated Intelligence: consistent with education level Insight: + limited insight Judgement: + limited judgement Vital Signs (Past 24 Hours): Last Vital Signs Temp 36.6 C 08/02/19 06:49 Pulse 87 08/02/19 06:50 Resp 18 08/02/19 06:49 BP 136/91 08/02/19 06:50 Pulse Ox 96 08/02/19 03:55 Results & Data Laboratory Results Laboratory Results - last 24 hr 08/01/19 08/01/19 08/01/19 22:50 22:50 22:57 WBC 7.69 RBC 4.47 L Hgb 14.3 Hct 41.1 L MCV 91.9 MCH 32.0 MCHC 34.8 RDW Std Deviation 45.5 RDW Coeff of Steve 13.6 Plt Count 146 MPV 10.9 H Immature Gran % (Auto) 0.4 Neut % (Auto) 64.2 Lymph % (Auto) 24.7 [place] % (Auto) 8.5 Eos % (Auto) 1.8 Baso % (Auto) 0.4 Immature Gran # (Auto) 0.03 H Neut # (Auto) 4.94 Lymph # (Auto) 1.90 [place] # (Auto) 0.65 H Eos # (Auto) 0.14 Baso # (Auto) 0.03 Absolute Nucleated RBC 0.00 Nucleated RBC % (auto) 0.0 Sodium Potassium Chloride Carbon Dioxide Anion Gap BUN Creatinine Est Cr Clr Drug Dosing Est GFR ( Amer) Est GFR (Non-Af Amer) BUN/Creatinine Ratio Glucose Calcium Total Bilirubin AST ALT Alkaline Phosphatase Total Protein Albumin Globulin Albumin/Globulin Ratio TSH Urine Color Yellow Urine Appearance Clear Urine pH 7.0 Ur Specific [place] 1.007 Urine Protein Negative Urine Glucose (UA) Negative Urine Ketones Negative Urine Blood Trace H Urine Nitrite Negative Urine Bilirubin Negative Urine Urobilinogen Negative Ur Leukocyte Esterase Negative Urine WBC (Auto) 1-5 Urine RBC (Auto) 0-4 U Hyaline Cast (Auto) 0 U Epithel Cells (Auto) 0-5 Urine Bacteria (Auto) Negative Salicylates Urine Opiates Screen Neg Ur Methadone, Qual Neg Acetaminophen Urine Barbiturates Neg Ur Phencyclidine (PCP) Neg U Amphetamin/Meth Scrn Neg MDMA (Ecstasy) Screen Neg U Benzodiazepines Scrn Neg Ur Cocaine Metabolite Neg U Marijuana (THC) Screen Neg Ethyl Alcohol mg/dL 08/01/19 08/01/19 08/01/19 22:57 22:57 22:57 WBC RBC Hgb Hct MCV MCH MCHC RDW Std Deviation RDW Coeff of Steve Plt Count MPV Immature Gran % (Auto) Neut % (Auto) Lymph % (Auto) [place] % (Auto) Eos % (Auto) Baso % (Auto) Immature Gran # (Auto) Neut # (Auto) Lymph # (Auto) [place] # (Auto) Eos # (Auto) Baso # (Auto) Absolute Nucleated RBC Nucleated RBC % (auto) Sodium 140 Potassium 4.2 Chloride 108 H Carbon Dioxide 26 Anion Gap 6.0 BUN 17 Creatinine 0.78 Est Cr Clr Drug Dosing 122.0 Est GFR ( Amer) 113.7 Est GFR (Non-Af Amer) 98.1 BUN/Creatinine Ratio 21.0 H Glucose 109 H Calcium 9.0 Total Bilirubin 0.3 AST 20 ALT 22 Alkaline Phosphatase 169 H Total Protein 8.2 Albumin 3.3 L Globulin 4.9 H Albumin/Globulin Ratio 0.7 L TSH 1.020 Urine Color Urine Appearance Urine pH Ur Specific [place] Urine Protein Urine Glucose (UA) Urine Ketones Urine Blood Urine Nitrite Urine Bilirubin Urine Urobilinogen Ur Leukocyte Esterase Urine WBC (Auto) Urine RBC (Auto) U Hyaline Cast (Auto) U Epithel Cells (Auto) Urine Bacteria (Auto) Salicylates 2.0 L Urine Opiates Screen Ur Methadone, Qual Acetaminophen < 2 L Urine Barbiturates Ur Phencyclidine (PCP) U Amphetamin/Meth Scrn MDMA (Ecstasy) Screen U Benzodiazepines Scrn Ur Cocaine Metabolite U Marijuana (THC) Screen Ethyl Alcohol mg/dL 150.9 H Current Inpatient Medications Current Inpatient Medications: Current Inpatient Medications Acetaminophen (Tylenol) 650 mg PO Q4H PRN PRN Reason: Headache or Minor Fever Stop: 09/01/19 04:06 Last Admin: 08/02/19 04:30 Dose: 650 mg Documented by: Al Hydrox/Mg Hydrox/Simethicone (Maalox) 30 ml PO Q4H PRN PRN Reason: GI Upset Stop: 09/01/19 04:06 Albuterol (Ventolin Hfa) 2 puffs INH Q4 PRN PRN Reason: Shortness Of Breath Stop: 08/12/19 05:09 Aspirin (Ecotrin Ectab) 81 mg PO [facility] Stop: 09/01/19 08:59 Last Admin: 08/02/19 12:20 Dose: 81 mg Documented by: Atorvastatin Calcium ([facility]) [facility] Stop: 09/01/19 08:59 Last Admin: 08/02/19 12:20 Dose: 20 mg Documented by: Bismuth Subsalicylate (Kaopectate) 15 ml PO PRN PRN PRN Reason: Loose Stool Stop: 09/01/19 04:06 Fluoxetine HCl (Prozac) 20 mg PO [facility] Stop: 09/01/19 08:59 Last Admin: 08/02/19 12:20 Dose: 20 mg Documented by: Hydroxyzine HCl (Vistaril) 50 mg PO HSZ PRN PRN Reason: Insomnia Stop: 09/01/19 04:06 Last Admin: 08/02/19 04:30 Dose: 50 mg Documented by: Hydroxyzine HCl (Vistaril) 25 mg PO Q4H PRN PRN Reason: Anxiety Stop: 09/01/19 04:06 Isosorbide Mononitrate (Imdur Extended Rel) 30 mg PO [facility] Stop: 09/01/19 08:59 Last Admin: 08/02/19 12:20 Dose: 30 mg Documented by: Lisinopril (Zestril) 5 mg PO [facility] Stop: 09/01/19 08:59 Last Admin: 08/02/19 12:20 Dose: 5 mg Documented by: Magnesium Hydroxide (Milk Of Magnesia) 30 ml PO DAILY PRN PRN Reason: Constipation Stop: 09/01/19 04:06 Metoprolol Tartrate (Lopressor) 25 mg PO BID [facility] Stop: 09/01/19 08:59 Last Admin: 08/02/19 12:20 Dose: 25 mg Documented by: Sodium Chloride ([place] Nasal) 1 - 2 sprays NA PRN PRN PRN Reason: Nasal Dryness/Congestion Stop: 09/01/19 04:06
[2019-08-03] MEDS: ASPIRIN 81 MG ECTAB PO SCH (08:55)
[2019-08-03] MEDS: ISOSORBIDE MONO EXTENDED REL 30 MG TABCR PO SCH (08:55)
[2019-08-03] MEDS: ATORVASTATIN 20 MG TAB PO SCH (08:55)
[2019-08-03] MEDS: lisinopriL 5 MG TAB PO SCH (08:56)
[2019-08-03] MEDS: FLUOXETINE HCL 20 MG CAP PO SCH (08:56)
[2019-08-03] MEDS: METOPROLOL TARTRATE 25 MG TAB PO SCH ×2 (08:56→20:31)
--- NOTE | 2019-08-03 11:19 | Psychiatric Progress Note ---
Date of Service August 03, 2019 Impression / Recommendations Impression Patient is a 59yo white male who [place] to live in [place] with his son. He reports a long history of depression but has not engaged in treatment. He is also being treated for prostate cancer, but cannot state who his physician is or where he is seen for that. He meets criteria for MDD recurrent moderate, and concern for alcohol abuse r/o dependence as he continues to drink despite many concurrent health concerns and minimizes his use. He is admitted after making suicidal statements while intoxicated, and while denying suicidality here, he is unable to engage in s afety planning or coping skills, and is quite concrete. He is a poor historian, and it is unclear if this is due to longstanding limited investment into the details of life, vs. poor concentration due to depression, vs. beginning of a cognitive concern (from alcohol or age), or personality traits. He has many risk factors for suicide, and inpatient treatment is medically necessary until such time as these risk factors can be adequately medicated. He has a family meeting with his son this afternoon, and social work is referring him for outpatient psychiatric care. Collateral history from patient's son will be helpful as well. (1) Major depressive disorder: 08/02 - inpatient [facility]aeffer, milieu, group therapy, resume prozac 20mg and advance to 40mg in a few days (will defer to weekday team) - observe behavior and congruence of safety report and mood , and gather collateral - attempt to facilitate aftercare and consider giving he and family infor mation on SB Ride to facilitate f/u with all medical care 08/03 -Continue fluoxetine 20 mg daily. -Family meeting with son this afternoon. -For for outpatient treatment. Present on Admission?: Yes (2) Alcohol abuse: 08/02 - qshift vitals given discrepant alcohol use report, continue to recommend he reduce and ideally abstain from alcohol given health issues, and relationship conflicts this is causing. I did note to patient that his weight, andhis breast tissue may both be increased by ongoing drinking of alcohol. Present on Admission?: Yes (3) Back pain: prn tylenol available on unit, refer for f/u with PCM at time of discharge (4) Prostate cancer: per 02/2019, and 07/12/[address] scan and brain MRI negative for mets, apparently notation in 07/12/19 admission indicates 03/2019 [facility] noted indicated need for bone scan in 3months that has not been performed, refer to f/u with [facility] if son does not already have record of such defer to heme/onc to comment on ongoing hot flashes and breast tenderness that has been >6months and reported to them by patient as lasting SE of prior treatment (5) Hypertension: 08/02 - resume metoprolol (6) CAD (coronary artery disease): 08/02 - resume atrovastatin, and isosorbide, at home he has SL nitro, will add that to prn list here Inventory Assets Strengths: willing to take medications willing to discuss options to increase access to care Needs: reduce alcohol improved social connections improved access/and f/u with medical and psychological care Risk Factors Assessment Male: Yes : Yes Do You Have Access To A Gun?: No Health Problems: Yes Mental Health Diagnoses: Yes Substance Use Disorders: Yes Previous Attempt: Yes Family History of Suicide: No Previous Psychiatric Hospitalization: No Hopelessness: Yes Smoker: Yes (former) Protective Factors Assessment [employer] Beliefs: No : No Responsible for Young Children: No Employed: No Stable Relationships: No Supportive Family: No Good Rapport with Provider: No Interval History Identifying Information NEMESIO REZA is a 59-year-old M who currently lives in [facility] with his son, has a history of MDD and multiple medical concerns who was admitted on 08/02/19 03:23 on a 201 voluntary commitment for suicidal statements made to his son while intoxicated. Chief Complaint "Better than I was". Review of Systems Sleep Information Total Hours of Sleep: 4.25 Sleep Comments: Patient was just admitted to our unit at 0402 this morning. Meal Information Percent Meal Consumed - Breakfast: 100 Percent Meal Consumed - Lunch: 100 Percent Meal Consumed - Dinner: 100 Subjective Subjective Patient was seen & assessed and interval progress reviewed with treatment team. Staff report he has been cooperative with treatment, eating and sleeping well, slightly irritable. He is a limited historian, states [facility] but doesn't know whom he saw there. He has a meeting with his son this afternoon. On my assessment, he reports "winter time is one of the most depressive times of the year." He states he is feeling better today, denies SI, but states he is isolated, misses his home, and has no friends here or people he knows, and although he "wants to get out and do things more," he cannot give any suggestions for that. He hopes his son will be able to help with this. He denies side effects to medications, and denies SI since arrival at the hospital. He states he has "no idea" who he sees for outpatient treatment (per social work referring to [place]). Physical Exam Psychiatric Orientation: alert and cooperative Obese, casually dressed, adequately groomed. Poor dentition. Seated in no acute distress. Motor Behavior: steady gait and station and no abnormal motor movements Speech rapid, poorly articulated. Affect mildly depressed and anxious, but reactive and congruent. "Better." Thought Process: + circumstantial thought process Thought Content: + loneliness Suicidal Thoughts: denies suicidal thoughts Homicidal Thoughts: denies homicidal thoughts Hallucinations: no auditory hallucinations and no visual hallucinations Cognition: language grossly intact; + recent memory not intact Insight: + limited insight Judgement: + limited judgement Vital Signs (Past 24 Hours) Last Vital Signs Temp 36.4 C L 08/03/19 06:50 Pulse 70 08/03/19 08:53 Resp 20 08/03/19 06:50 BP 116/74 08/03/19 08:53 Pulse Ox 96 08/02/19 03:55 Results & Data Current Inpatient Medications Current Inpatient Medications: Current Inpatient Medications Acetaminophen (Tylenol) 650 mg PO Q4H PRN PRN Reason: Headache or Minor Fever Stop: 09/01/19 04:06 Last Admin: 08/02/19 21:49 Dose: 650 mg Documented by: Al Hydrox/Mg Hydrox/Simethicone (Maalox) 30 ml PO Q4H PRN PRN Reason: GI Upset Stop: 09/01/19 04:06 Albuterol (Ventolin Hfa) 2 puffs INH Q4 PRN PRN Reason: Shortness Of Breath Stop: 08/12/19 05:09 Aspirin (Ecotrin [facility]ab) [facility] [place]: 09/01/19 08:59 Last Admin: 08/03/19 08:55 Dose: 81 mg Documented by: Atorvastatin Calcium (Lipitor) [facility] [place]: 09/01/19 08:59 Last Admin: 08/03/19 08:55 Dose: 20 mg Documented by: Bismuth Subsalicylate (Kaopectate) 15 ml PO PRN PRN PRN Reason: Loose Stool Stop: 09/01/19 04:06 Fluoxetine HCl (Prozac) [facility] [place]: 09/01/19 08:59 Last Admin: 08/03/19 08:56 Dose: 20 mg Documented by: Hydroxyzine HCl (Vistaril) 50 mg PO HSZ PRN PRN Reason: Insomnia Stop: 09/01/19 04:06 Last Admin: 08/02/19 21:30 Dose: 50 mg Documented by: Hydroxyzine HCl (Vistaril) 25 mg PO Q4H PRN PRN Reason: Anxiety Stop: 09/01/19 04:06 Isosorbide Mononitrate (Imdur Extended Rel) 30 mg PO [facility] Stop: 09/01/19 08:59 Last Admin: 08/03/19 08:55 Dose: 30 mg Documented by: Lisinopril (Zestril) 5 mg PO [facility] Stop: 09/01/19 08:59 Last Admin: 08/03/19 08:56 Dose: 5 mg Documented by: Magnesium Hydroxide (Milk Of Magnesia) 30 ml PO DAILY PRN PRN Reason: Constipation Stop: 09/01/19 04:06 Metoprolol Tartrate (Lopressor) 25 mg PO BID [facility] Stop: 09/01/19 08:59 Last Admin: 08/03/19 08:56 Dose: 25 mg Documented by: Sodium Chloride (Kemper Nasal) 1 - 2 sprays NA PRN PRN PRN Reason: Nasal Dryness/Congestion Stop: 09/01/19 04:06 Mental Health & Subst Abuse Tx Therapist Name of Therapist: denies Audit Senior Associate Name of Audit Senior Associate: denies Post Discharge Appointments Primary Care Physician Name Of Family Doctor: denies (1) Major depressive disorder Major depression recurrence: recurrent Active/Remission status: currently active Major depression episode severity: moderate Qualified Code(s): F33.1 - Major depressive disorder, recurrent, moderate
[2019-08-03] MEDS: ACETAMINOPHEN 325 MG TAB PO PRN ×2 (12:20→22:38)
[2019-08-04 07:07] VITALS: BP 105/73; TEMP 97.7
[2019-08-04] MEDS: ASPIRIN 81 MG ECTAB PO SCH (09:14)
[2019-08-04] MEDS: FLUOXETINE HCL 20 MG CAP PO SCH (09:14)
[2019-08-04] MEDS: ISOSORBIDE MONO EXTENDED REL 30 MG TABCR PO SCH (09:14)
[2019-08-04] MEDS: ATORVASTATIN 20 MG TAB PO SCH (09:14)
[2019-08-04] MEDS: lisinopriL 5 MG TAB PO SCH (09:14)
[2019-08-04] MEDS: METOPROLOL TARTRATE 25 MG TAB PO SCH (09:14)
--- NOTE | 2019-08-04 09:27 | Discharge Summary ---
Date of Service August 04, 2019 History of Present Illness The patient is a 65yo white male who has h/o MDD, alcohol abuse, prostate Cancer, CAD and CLBP who presents by police last night to the [facility] ER after he made statements to his son "I 'd rather be than live with this kind of stress" "sometimes I dont care if I live or " He was admitted under 201 voluntary admission after he was consented when he was below the legal limit of alcohol by timeline. He stated to nursing this AM, "I am not suicidal I just said that," and to this provider this afternoon "you know you say things when you are angry you don't mean." Patient is a poor historian, and shares very minimal and vague information some of which is discrepant from the ER record last night, and some of which is discrepant from the psychiatry consultation dated 02/2019 by Ms Lincoln, the psychiatric PA here at [facility] In summary of available records and interview iwth the patient his history is as follows: Patient notes he has been depressed "for years" and that his primary care in [place] has tried many medications. He however cannot recall names or doses nor recognition by given options of names. He first states "none of them worked." However later in the visit he noted he did take the prozac 20mg offered at his 02/2019 admission "until it ran out" and "it helped some but not enough....I need something stronger" He denies having side effects and states his poor sleep remained unchanged oon prozac vs. off. He reports poor sleep longstanding with combination of difficulty falling and staying asleep. He wakes up often to acid reflux, and to urinate, and has hot flashes and sweating which he reports is a lingering side effect of his prostate cancer treatments. He reports low interest, low energy, poor concentration, anhedonia, low motivation, but denies SI and continues to maintain that he did not mean the things he said while intoxicated. He denies h/o SA to this provider and when provider asked about SA disclosed at his 02/2019 consultation visit where he shared he cut his wrist with [place], he says "oh, so I was not going to go there.....but here it is," and reveals transverse scar on left wrist, "ya, that was depression." He states his physical health is his biggest stressor and trigger for depression. He maintains that he has prostate cancer s/p radiation (9 weeks,) and hormones (3months) and that is was "hell" and not curable he then "gave up." Most notably he was frustarted that he did not know it was not curable, and further that he lost erectile functions "feel like less of a man." He does not recall when his next Hem/Onc visit is. He did not recall having been to the [facility]/Oncologist in March 2019 (referenced in his 07/12 [facility] hospitalization notes) and is sure he has not had the 3month bone scan recommended. He does recall having scans while inpatient medically that have shown negative chest CT and negative spine for signs of mets. He shares about having sweats "like a woman in menopause" and also breast tenderness that is unbearable. He does not recall if he shared this with his oncologist and what the explanations/recommendations were. He has been off his medications for CAD, HTN, HLP and GERD as he was unable to get to his PCM appt after his 07/13 [facility] discharge. Per records it was to be with Dr Bingham 07/17/19. He states "my son got a message for some appt and rescheduled it for August but I don't know which one it was" He states he has not been able to attend his medical visits due to his son traveling. He does not drive "due to my disabilities." He attended his medical appointments in [place] via some form of insurance paid transportation. He applied for disability in [place] but states it was disrupted by his move to [place] and "I have to repeat it all." He supports himself on medicaid and food stamps. He minimizes alcohol use, stating to this provider today "i have alcohol 1-2 times a month, 2-3 drinks." provider noted that he reported having 4-5 drinks last night in the ER, and hestates "maybe 4" and that he said he has 10-15 beers a week. HIs February consult note indicates that he has cut down significantly from higher past use prior to that. He denies s/sx of shakes/sweats or complicated withdrawal when away from alcohol, no seizures. He denies smoking at this time, "I quit several years ago" on reference to the Chant[facility] script in June he then states "well I smoked again for a little bit and quit after I was in the hospital" presumably his 07/12-07/13 admission to [facility]. Psychiatric ROS: - he denies s/sx of psychosis, now or in the past, and denies violence towards others - he denies DIGFAST sx of kiara, or s/sx of mixed states - He states he does worry "about life" wishing he would have made different choices along the way, but denies s/sx of SELENE, or panic or agoraphobia, or OCD to this provider. - he denies disciplinary issues in school, but does note he did not like school cannot recall if he had focus or attention concerns - he is overweight and pre-diabetic but denies eating d/o behaviors, states back pain limits his exercise Physical Exam Psychiatric Overweight male appearing his stated age. Casually dressed, adequately groomed. Poor dentition, missing teeth. Seated in no acute distress, with fair eye contact and no abnormal movements. Gait and station are normal. Calm and cooperative with the assessment. Mood is "great," and affect is euthymic, reactive, congruent, and appropriate. He denies suicidal thoughts, homicidal thoughts, hallucinations, and paranoia. No delusions are evident. Thoughts are linear and goal-directed, concrete. Level of intelligence estimated to be average. Insight and judgment are fair. Alert and oriented. Memory and attention grossly intact. Vital Signs (Past 24 Hours) Last Vital Signs Temp 36.5 C 08/04/19 07:05 Pulse 61 08/04/19 07:05 Resp 14 08/04/19 07:05 BP 105/73 08/04/19 07:05 Pulse Ox 96 08/02/19 03:55 Principal Diagnosis Major depressive disorder, recurrent Alcohol use disorder Alcohol intoxication, resolved Psychiatric Data The patient was hospitalized for 2 days. He was restarted on fluoxetine, which had previously been prescribed after psychiatric consultation 02/2019, but he was nonadherent with that. He tolerated it well, and reported rapid improvement in mood and resolution of suicidal ideation. Although he reported poor adherence to prescribed medications at home, he willingly took medications as prescribed in the hospital, and was future oriented, indicating he was enjoying spending time with his son and hope to make the most of the time that he had left (given his terminal cancer diagnosis). He took hydroxyzine 50 mg at bedtime for sleep and reported it was beneficial, and sleep improved in the hospital. He was eating well, and performing ADLs independently. He attended and participated in groups and therapy. Education was provided about the risks of ongoing alcohol use and recommendations for abstinence, given negative impact to mood, physical health, and occurrence of suicidality while intoxicated. He gave discrepant reports regarding amount of alcohol intake, so every shift vital signs were checked, and he did not demonstrate symptoms of alcohol withdrawal. He was a poor historian regarding outpatient treatment, stating he had regular physicians in [place], but since relocating to [place] to live with his son, he had not established care. He was referred for PCP and oncology appointments. He insisted that he was told in the ER that he would only be in the hospital for 72 hours, and became frustrated when reviewing his treatment plan and estimated length of stay, and submitted a 72-hour notice requesting to withdrawal from treatment on 08/03/2019. He had a family meeting with his son and the social insurance adviser on 08/03/2019; neither of them were very knowledgeable about his outpatient treatment options or requirements, stating he had an appointment with an oncologist but they did not know where or when. The social insurance adviser was eventually able to determine that he has an appointment with [facility] oncology in August 2019. He was referred for a PCP through [facility] as well, and axel tan to change his PCP through his medical assistance so that care would be covered by his insurance. The patient and his son both requested discharge before [place] so that they could spend the holidays together, as they believe this will be their last [place] together due to the patient's terminal illness. Patient's son confirmed that there are no access to guns, and he denied safety concerns with taking the patient home. Attempts were made to refer him for outpatient psychiatric care, but this was not able to be accomplished, so he was scheduled with a PCP instead. He declined referrals for outpatient case management and therapy. Day of Discharge Assessment The patient reports his mood is "great," rates it an 8 out of 10, and denies suicidal thoughts since admission. He reports improved sleep, and good appetite. He denies any side effects to medications. He reports understanding of the treatment recommendations, including taking his medication daily as prescribed, following up with his PCP, and abstaining from alcohol. He declines further mental health services including psychiatry, case management and therapy. He denies any safety concerns with leaving the hospital, and would like to be discharged today so that he can spend the holiday with his son. He reports sleep is much better with hydroxyzine, and requested a prescription for use at home. Transition of Care Transition Of Care Record: was reviewed with the patient Advance Directives Advance Directives Information Provided: Yes Advance Directives: No Mental Health Advance Directive: No Advance Directives on File: No Living Will: No Power of Integration Manager: No Advance Directives Reason:: Declines as Mental Health Visit. Risk Factors Assessment Risk factors were mitigated by admission to the inpatient unit, use of medications to target mood and sleep, involvement in groups and therapy, working on healthy coping skills and a discharge safety plan, referring him for outpatient treatment, and a family meeting with his son whom he lives with. The patient is reporting improved mood, sleep has improved, he is eating well, performing ADLs independently, and stating willingness to follow-up with outpatient treatment. Both he and his son deny acute safety concerns and are requesting discharge today. The patient submitted a 72-hour notice, and is he is no longer at acute risk of harm to himself, can be managed as an outpatient at this time. Male: Yes : Yes Do You Have Access To A Gun?: No Health Problems: Yes Mental Health Diagnoses: Yes Substance Use Disorders: Yes Previous Attempt: Yes Family History of Suicide: No Previous Psychiatric Hospitalization: No Hopelessness: Yes Smoker: Yes (former) Protective Factors Assessment Mormonism Beliefs: No : No Responsible for Young Children: No Employed: No Stable Relationships: No Supportive Family: No Good Rapport with Provider: No Tobacco Cessation at Discharge Tobacco Cessation Medication Prescribed at Discharge: Not Applicable/Non-Smoker Total Time Total Time Spent: Greater Than 30 Minutes Total Time Includes: Examination of the patient, Discharge Planning and Medication Reconciliation Discharge Data Lab Results 08/01/19 08/01/19 08/01/19 22:50 22:50 22:57 WBC 7.69 RBC 4.47 L Hgb 14.3 Hct 41.1 L MCV 91.9 MCH 32.0 MCHC 34.8 RDW Std Deviation 45.5 RDW Coeff of Steve 13.6 Plt Count 146 MPV 10.9 H Immature Gran % (Auto) 0.4 Neut % (Auto) 64.2 Lymph % (Auto) 24.7 Martin % (Auto) 8.5 Eos % (Auto) 1.8 Baso % (Auto) 0.4 Immature Gran # (Auto) 0.03 H Neut # (Auto) 4.94 Lymph # (Auto) 1.90 Martin # (Auto) 0.65 H Eos # (Auto) 0.14 Baso # (Auto) 0.03 Absolute Nucleated RBC 0.00 Nucleated RBC % (auto) 0.0 Sodium Potassium Chloride Carbon Dioxide Anion Gap BUN Creatinine Est Cr Clr Drug Dosing Est GFR ( Amer) Est GFR (Non-Af Amer) BUN/Creatinine Ratio Glucose Calcium Total Bilirubin AST ALT Alkaline Phosphatase Total Protein Albumin Globulin Albumin/Globulin Ratio TSH Urine Color Yellow Urine Appearance Clear Urine pH 7.0 Ur Specific Mather 1.007 Urine Protein Negative Urine Glucose (UA) Negative Urine Ketones Negative Urine Blood Trace H Urine Nitrite Negative Urine Bilirubin Negative Urine Urobilinogen Negative Ur Leukocyte Esterase Negative Urine WBC (Auto) 1-5 Urine RBC (Auto) 0-4 U Hyaline Cast (Auto) 0 U Epithel Cells (Auto) 0-5 Urine Bacteria (Auto) Negative Salicylates Urine Opiates Screen Neg Ur Methadone, Qual Neg Acetaminophen Urine Barbiturates Neg Ur Phencyclidine (PCP) Neg U Amphetamin/Meth Scrn Neg MDMA (Ecstasy) Screen Neg U Benzodiazepines Scrn Neg Ur Cocaine Metabolite Neg U Marijuana (THC) Screen Neg Ethyl Alcohol mg/dL 08/01/19 08/01/19 08/01/19 22:57 22:57 22:57 WBC RBC Hgb Hct MCV MCH MCHC RDW Std Deviation RDW Coeff of Steve Plt Count MPV Immature Gran % (Auto) Neut % (Auto) Lymph % (Auto) Martin % (Auto) Eos % (Auto) Baso % (Auto) Immature Gran # (Auto) Neut # (Auto) Lymph # (Auto) Martin # (Auto) Eos # (Auto) Baso # (Auto) Absolute Nucleated RBC Nucleated RBC % (auto) Sodium 140 Potassium 4.2 Chloride 108 H Carbon Dioxide 26 Anion Gap 6.0 BUN 17 Creatinine 0.78 Est Cr Clr Drug Dosing 122.0 Est GFR ( Amer) 113.7 Est GFR (Non-Af Amer) 98.1 BUN/Creatinine Ratio 21.0 H Glucose 109 H Calcium 9.0 Total Bilirubin 0.3 AST 20 ALT 22 Alkaline Phosphatase 169 H Total Protein 8.2 Albumin 3.3 L Globulin 4.9 H Albumin/Globulin Ratio 0.7 L TSH 1.020 Urine Color Urine Appearance Urine pH Ur Specific Mather Urine Protein Urine Glucose (UA) Urine Ketones Urine Blood Urine Nitrite Urine Bilirubin Urine Urobilinogen Ur Leukocyte Esterase Urine WBC (Auto) Urine RBC (Auto) U Hyaline Cast (Auto) U Epithel Cells (Auto) Urine Bacteria (Auto) Salicylates 2.0 L Urine Opiates Screen Ur Methadone, Qual Acetaminophen < 2 L Urine Barbiturates Ur Phencyclidine (PCP) U Amphetamin/Meth Scrn MDMA (Ecstasy) Screen U Benzodiazepines Scrn Ur Cocaine Metabolite U Marijuana (THC) Screen Ethyl Alcohol mg/dL 150.9 H Hospital Course (1) Major depressive disorder: 08/02 - inpatient schaeffer, milieu, group therapy, resume prozac 20mg and advance to 40mg in a few days (will defer to weekday team) - observe behavior and congruence of safety report and mood , and gather collateral - attempt to facilitate aftercare and consider giving he and family information on SB Ride to facilitate f/u with all medical care 08/03 -Continue fluoxetine 20 mg daily. -Family meeting with son this afternoon. -For for outpatient treatment. 08/04 -Substance issued for fluoxetine 20 mg daily and hydroxyzine 50 mg nightly as needed insomnia. -Unable to secure a psychiatry appointment, but referred for PCP, Dr. Bingham, on 08/19/2019. Patient is declining therapy and case management services. (2) Alcohol abuse: 08/02 - qshift vitals given discrepant alcohol use report, continue to recommend he reduce and ideally abstain from alcohol given health issues, and relationship conflicts this is causing. I did note to patient that his weight, andhis breast tissue may both be increased by ongoing drinking of alcohol. 08/04 - Brief intervention was offered and accepted Intervention was greater than 5 min in length. Brief interventions include: 1. Assess Readiness to Quit, 2. Advise: Help Patient to Reduce or Abstain from Alcohol, 3. Agree: Set Specific, Feasible Goals, 4. Assist: Anticipate barriers, Problem-Solving Solutions. Social work to 5. Arrange: Referrals to appropriate treatment. Summary of intervention: The patient is in contemplation stage with regards to transtheoretical model of change. The patient is advised to decrease alcohol consumption due to depressant effects and risk of interactions with prescription medications. The patient agreed to avoid alcohol and will be provided with recovery materials to continue to education self on how to cope with their condition without drinking. -Follow-up with PCP on 08/19/2019. (3) Back pain: prn tylenol available on unit, refer for f/u with PCM at time of discharge (4) Prostate cancer: per 02/2019, and 07/12/[address] scan and brain MRI negative for mets, apparently notation in 07/12/19 admission indicates 03/2019 [facility] noted indicated need for bone scan in 3months that has not been performed, refer to f/u with Hem/Onc [facility] if son does not already have record of such defer to heme/onc to comment on ongoing hot flashes and breast tenderness that has been >6months and reported to them by patient as lasting SE of prior treatment 08/04 -Follow-up confirmed with [facility] Oncology 09/07/2019. (5) Hypertension: 08/02 - resume metoprolol (6) CAD (coronary artery disease): 08/02 - resume atrovastatin, and isosorbide, at home he has SL nitro, will add that to prn list here Mental Health & Subst Abuse Tx Therapist Name of Therapist: denies Case Management Director Name of Case Management Director: denies Post Discharge Appointments Primary Care Physician Name Of Family Doctor: Rush Bingham MD, [place] Date of Appointment with PCP: 08/19/18 Time of Appointment with PCP: 10:30 Specialist Name of Specialist: geovani Menjivar Date of Appointment with Specialist: 09/07/19 Time of Appointment with Specialist: 10:15 Smoking Cessation Counseling Tobacco Cessation Medication Prescribed at Discharge: Not Applicable/Non-Smoker Discharge Plan Discharge Items Patient Disposition: Home - Self-Care Reason For Visit: DEPRESSION, NOS Discharge Diagnosis: Major depressive disorder Alcohol abuse Activity: Per Instructions section Non-emergency contact: Primary Care Provider and Oncologist Call non-emergency contact if: you have any medication questions and your symptoms worsen Follow-up/Referrals: PCP,NO [Primary Care Provider] - Diet: Regular Addtl Attending Provider Instructions: SPECIAL CARE INSTRUCTIONS: 1. Follow through with your scheduled aftercare appointments. If unable to keep an appointment, please call to reschedule. 2. Take your medication only as prescribed. Medication should not be changed or stopped without the approval of your doctor. In the event of worsening symptoms or concerns about side effects, contact your doctor immediately. 3. Utilize new healthy coping skills, anger management skills, and stress management skills learned during your hospitalization. Journal feelings an d process them with a support person. Identify stressors or situations that may result in relapse, deterioration or inappropriate behaviors and develop a plan to deal with those issues. 4. If your coping skills are ineffective and you are in crisis, contact your outpatient providers for direction. If unable to reach your providers, please call the CAN HELP LINE AT or go to the closest Emergency Room. 5. You should not drink or alcohol or take un-prescribed drugs. 6. You have been provided with the Mental Health Advance Directives Pamphlet for your review. AFTERCARE APPOINTMENTS: * Please call your insurance company prior to your scheduled appointment to confirm your aftercare providers are covered. Take your insurance information to your appointments. WHO TO CALL AND WHEN: Medical Emergencies: For questions or emergencies related to your hospital stay, please contact the Inpatient Behavioral Health Unit at [phone]. A psychiatric therapist is on-call 04/03 for the Behavioral Health Unit for emergencies At any time you feel your situation is an emergency, you may also call 911 immediately. Your Doctors Instructions noted above were prepared by provider Leonarda Mccoy MD. Pending Studies at Discharge: No Stand-Alone Forms: My [facility], Smoking Cessation, Suicide Prevention Resources Medications and DC Order Prescriptions: New fluoxetine 20 mg Capsule 20 mg PO QAM Qty: 30 RF: 0 hydroxyzine HCl 50 mg tablet 50 mg PO HSZ PRN (Reason: insomnia) Qty: 30 RF: 0 Continued atorvastatin 20 mg Tablet 20 mg PO QAM 30 Days Qty: 30 RF: 0 isosorbide mononitrate 30 mg Tablet Extended Release 24 Hr 30 mg PO QAM 30 Days Qty: 30 RF: 0 aspirin [Ecotrin Low Strength] 81 mg Tablet,Delayed Release (Dr/Ec) 81 mg PO DAILY 30 Days Qty: 30 RF: 0 nitroglycerin [Nitrostat] 0.4 mg Tablet, Sublingual 0.4 mg sublingual UD PRN (Reason: chest pain) 30 Days Qty: 25 RF: 0 lisinopril [Zestril] 5 mg Tablet 5 mg PO QAM 30 Days Qty: 30 RF: 0 metoprolol tartrate 25 mg Tablet 25 mg PO BID 30 Days Qty: 60 RF: 0 albuterol sulfate 90 mcg/actuation Hfa Aerosol Inhaler 2 puff INHALATION Q4H PRN (Reason: sob/wheezing) RF: 0 fluticasone propion-salmeterol [Wixela Inhub] 250-50 mcg/dose Blister With Device 1 inh INHALATION BID RF: 0 Discharge Orders: Discharge Order (Routine); Ordered 08/04/19 Ordered By: Leonarda Mccoy Admission Data Admit Date/Time: 08/02/19 03:23 Attending Provider: Pat Mas Admit Provider: Pat Mas Primary Care Provider: PCP,NO Other Interventions: PSY Interdisciplinary Discharge Planning Last Done: 08/03/19 16:05 Coding Level of Care Code 57885 D/C day mgmt > 30 min Diagnoses Major depressive disorder F33.1 Major depression recurrence: recurrent Active/Remission status: currently active Major depression episode severity: moderate Alcohol abuse F10.10 Back pain M54.9 Prostate cancer C61 Hypertension I10 CAD (coronary artery disease) I25.10
[2019-08-04 09:29] VITALS: PULSE 83
== END 2019-08-04 12:29 | disposition home or self-care (01) | DRG 881 ==
LOC: ED 22:41 → 3S 08-02 03:23

== ENCOUNTER 2020-06-19 22:59 | Observation (INO) ==
[2020-06-19] MEDS ORDERED: ASPIRIN CHEW 324 MG ONE (23:11)
--- NOTE | 2020-06-19 23:16 | Emergency Department Note ---
History of Present Illness General Chief Complaint: Chest Pain Stated Complaint: chest pain Time Seen by Provider: 06/19/20 23:03 History of Present Illness Maximum Pain Intensity: 1 This 60-year-old with a history of coronary disease presents to the ER complaining of severe chest pain that radiates straight to his back Location: Chest Quality: Severe Severity: Severe Duration: 2 hours Timing: Started while sitting on the couch Context: Patient was concerned and called EMS Modifying factors: better with nitroglycerin; worse with nothing Patient states he feels better after the nitroglycerin and aspirin. He states the pain radiates straight to his back and up to his jaw. Patient smokes. He occasionally drinks. He has had prior heart disease. 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 Patient denies abdominal pain, fever, chills, flulike illness, numbness, tingling, localized weakness. Home Medications Home Medications Medication Instructions Recorded Confirmed Type varenicline [Chantix] 1 mg PO BID 06/19/20 06/19/20 History Allergies Allergy/AdvReac Type Severity Reaction Status Date / Time No Known Allergies Allergy Verified 06/19/20 23:28 Past Med/Surg History Medical History Hypertension No significant family history Prostate cancer Surgical History No significant past surgical history Stented coronary artery Family History Unknown Cancer brother and father had cancer (type not known at this time) Other No pertinent family history in first degree relatives Social History Smoking Status: Current some day smoker Hx Alcohol Use: No Hx Substance Use: No Preferred Language: Northern Irish Communication Ability: Effective Habilitation Specialist Required: No Beliefs That Will Affect Care: None Current Living Situation: Alone Feels Safe at Home: Yes Assistive Devices: Glasses Review of Systems A total of 10 systems reviewed and were otherwise negative Physical Exam Vital Signs Vital Signs - 24 hr 06/19/20 23:08 06/19/20 23:16 06/19/20 23:17 Temperature 37.0 C Temperature Source Oral Pulse Rate 100 H 99 H Pulse Rate from SpO2 Sensor Respiratory Rate 20 18 Respiratory Effort / Characteristics Non-Labored Spontaneous Respiratory Depth Normal Blood Pressure 162/80 H Blood Pressure Mean 107 Blood Pressure Position Sitting Pulse Oximetry 95 95 94 Oxygen Delivery Method Room Air Room Air Room Air Sepsis Recent Fever Within 48 Hours No Sepsis New/Unexplained Change in Mental Status No Sepsis Action Taken by Nursing No Action Required 06/19/20 23:30 06/20/20 00:01 Temperature Temperature Source Pulse Rate 92 H 88 Pulse Rate from SpO2 Sensor 87 89 Respiratory Rate 22 23 Respiratory Effort / Characteristics Respiratory Depth Blood Pressure 103/83 132/68 Blood Pressure Mean 93 97 Blood Pressure Position Pulse Oximetry 95 95 Oxygen Delivery Method Room Air Room Air Sepsis Recent Fever Within 48 Hours Sepsis New/Unexplained Change in Mental Status Sepsis Action Taken by Nursing VITALS: Vitals are noted on the nurse's note and reviewed by myself. Vital signs stable. GENERAL: Pleasant male, in no acute distress, nondiaphoretic, well-developed well-nourished. SKIN: Capillary reflex less than 2 seconds. HEENT: Normocephalic. PERRLA. EOMI. Nares patent. Mucous membranes moist. Neck is supple without nuchal rigidity. HEART: Regular rate and rhythm, chest nontender to palpation LUNGS: Clear to auscultation bilaterally without wheezes, rales or rhonchi. No retractions or accessory muscle use. ABDOMEN: Positive bowel sounds x 4. Normal tympanic percussion. Soft, nontender, without masses or organomegaly. Jesus sign negative. No guarding or rebound tenderness. No CVA tenderness MUSCULOSKELETAL: No gross musculoskeletal defects. NEURO: Patient was alert and oriented to person place and time. No focal neurological deficits. Course Administered Medications Discontinued Medications Ioversol (Optiray 320 125ml) 119 ml IV ONCE ONE Stop: 06/19/20 23:55 Last Admin: 06/19/20 23:54 Dose: 119 ml Documented by: [id number] Medical Decision Making Medical Records Attestation: I reviewed the patient's medical records. Home Medications Current Medication List: was personally reviewed by me Laboratory Data Attestation: I reviewed the patient's lab results. Result diagrams: 06/19/20 23:05 06/19/20 23:05 Labs: Lab Results 06/19/20 06/19/20 06/19/20 Range/Units 23:05 23:05 23:05 WBC 8.40 (4.8-10.8) K/uL RBC 4.41 L (4.7-6.1) M/uL Hgb 14.5 (14.0-18.0) g/dL POC Hgb (14.0-18.0) g/dl Hct 41.7 L (42-52) % POC Hct (42-52) % MCV 94.6 (80-100) fL MCH 32.9 (25-34) pg MCHC 34.8 (32-36) g/dL RDW Std Deviation 47.2 H (36.4-46.3) fL RDW Coeff of Steve 13.6 (11.5-14.5) % Plt Count 149 (130-400) K/uL MPV 10.8 H (7.4-10.4) fL Immature Gran % (Auto) 0.4 % Neut % (Auto) 64.8 % Lymph % (Auto) 25.8 % Sampson % (Auto) 7.1 % Eos % (Auto) 1.3 % Baso % (Auto) 0.6 % Neut # (Auto) 5.44 (1.4-6.5) K/uL Lymph # (Auto) 2.17 (1.2-3.4) K/uL Sampson # (Auto) 0.60 H (0.11-0.59) K/uL Eos # (Auto) 0.11 (0-0.5) K/uL Baso # (Auto) 0.05 (0-0.2) K/uL Immature Gran # (Auto) 0.03 H (0.00-0.02) K/uL PT 10.9 (9.0-12.0) Seconds INR 1.0 (0.9-1.1) APTT 24.8 (21.0-31.0) Seconds PTT Ratio 0.9 POC Sodium (135-144) mmol/L Sodium 141 (136-145) mmol/L POC Potassium (3.3-5.0) mmol/L Potassium 4.0 (3.5-5.1) mmol/L POC Chloride (101-112) mmol/L Chloride 109 H (98-107) mmol/L Carbon Dioxide 23 (21-32) mmol/L POC Total CO2 (24-31) mmol/L Anion Gap 10.0 (3-11) POC Anion Gap (16-25) mmol/L POC BUN (7-18) mg/dl BUN 14 (7-18) mg/dl Creatinine 1.10 (0.6-1.4) mg/dl POC Creatinine (0.6-1.3) mg/dl Est Cr Clr Drug Dosing Not Reportable Est GFR ( Amer) 83.5 Est GFR (Non-Af Amer) 72.1 BUN/Creatinine Ratio 13.1 (10-20) Glucose 122 H (70-99) mg/dl POC Glucose (other) (70-99) mg/dl Calcium 8.8 (8.5-10.1) mg/dl POC Ioniz Calcium Gonzalo (1.12-1.32) mmol/l Total Bilirubin 0.3 (0.2-1) mg/dl AST 26 (15-37) U/L ALT 28 (12-78) U/L Alkaline Phosphatase 139 H (45-117) U/L Troponin I < 0.015 (0-0.045) ng/ml Total Protein 7.1 (6.4-8.2) gm/dl Albumin 3.1 L (3.4-5.0) gm/dl Globulin 4.0 (2.5-4.0) gm/dl Albumin/Globulin Ratio 0.8 L (0.9-2) Lipase 212 (73-393) U/L 06/19/20 Range/Units 23:15 WBC (4.8-10.8) K/uL RBC (4.7-6.1) M/uL Hgb (14.0-18.0) g/dL POC Hgb 13.9 L (14.0-18.0) g/dl Hct (42-52) % POC Hct 41 L (42-52) % MCV (80-100) fL MCH (25-34) pg MCHC (32-36) g/dL RDW Std Deviation (36.4-46.3) fL RDW Coeff of Steve (11.5-14.5) % Plt Count (130-400) K/uL MPV (7.4-10.4) fL Immature Gran % (Auto) % Neut % (Auto) % Lymph % (Auto) % Sampson % (Auto) % Eos % (Auto) % Baso % (Auto) % Neut # (Auto) (1.4-6.5) K/uL Lymph # (Auto) (1.2-3.4) K/uL Sampson # (Auto) (0.11-0.59) K/uL Eos # (Auto) (0-0.5) K/uL Baso # (Auto) (0-0.2) K/uL Immature Gran # (Auto) (0.00-0.02) K/uL PT (9.0-12.0) Seconds INR (0.9-1.1) APTT (21.0-31.0) Seconds PTT Ratio POC Sodium 140 (135-144) mmol/L Sodium (136-145) mmol/L POC Potassium 4.1 (3.3-5.0) mmol/L Potassium (3.5-5.1) mmol/L POC Chloride 107 (101-112) mmol/L Chloride (98-107) mmol/L Carbon Dioxide (21-32) mmol/L POC Total CO2 23 L (24-31) mmol/L Anion Gap (3-11) POC Anion Gap 15.0 L (16-25) mmol/L POC BUN 15 (7-18) mg/dl BUN (7-18) mg/dl Creatinine (0.6-1.4) mg/dl POC Creatinine 1.1 (0.6-1.3) mg/dl Est Cr Clr Drug Dosing Est GFR ( Amer) Est GFR (Non-Af Amer) BUN/Creatinine Ratio (10-20) Glucose (70-99) mg/dl POC Glucose (other) 119 H (70-99) mg/dl Calcium (8.5-10.1) mg/dl POC Ioniz Calcium Gonzalo 1.15 (1.12-1.32) mmol/l Total Bilirubin (0.2-1) mg/dl AST (15-37) U/L ALT (12-78) U/L Alkaline Phosphatase (45-117) U/L Troponin I (0-0.045) ng/ml Total Protein (6.4-8.2) gm/dl Albumin (3.4-5.0) gm/dl Globulin (2.5-4.0) gm/dl Albumin/Globulin Ratio (0.9-2) Lipase (73-393) U/L MDM Narrative Prior records/ancillary studies reviewed. Triage Nursing notes reviewed. Additional history obtained from EMS. The patient's history was concerning for chest pain. Differential diagnosis: Etiologies such as cardiac ischemia, aortic dissection, pulmonary embolism, pneumonia, pneumothorax, musculoskeletal, infections, pericarditis, myocarditis, esophageal rupture, gastrointestinal, as well as others were entertained. Physical examination: As above. ER treatment provided: An order was placed for continuous cardiac monitoring. The monitor shows a rate of 60-1 10 with a sinus rhythm. EMS gave aspirin nitroglycerin On reassessment the patient felt better. Diagnostic interpretation by me: The electrocardiogram was negative for pathologic change. Normal sinus, Q-wave in lead III, no acute ST-T wave changes, rate of 102. Impression sinus tachycardia with Q waves in inferior leads interpreted by myself EKG ordered for chest pain I think arrhythmia is unlikely. EKG shows normal sinus rhythm with no interval abnormalities such as QT prolongation or WPW. There are no findings to suggest Brugada syndrome. Cardiac monitoring in the emergency department reveals no tachycardic or bradycardic dysrhythmia. Hypertrophic cardiomyopathy was considered but there are no clear historical elements pointing toward this. EKG is not suggestive. The QRS voltage is not extremely large The labs revealed no leukocytosis Stable H&H Imaging studies: Chest x-ray with possible lung nodule left lower lobe. No free air or pneumonia or pneumothorax my interpretation. CTA CHEST: No pulmonary embolism. Normal caliber thoracic aorta without aneurysm or dissection. Atherosclerotic calcifications of the thoracic aorta and arch vessels. CT CHEST Without Contrast: The airway is patent and the lungs are clear. No pleural effusion or p neumothorax. No lymphadenopathy. Coronary artery calcifications. Radiologist: Jeri Dsouza M.D. HEART SCORE: Hx: high/mod/low suspicion: 1 ECG: ST depression/nonspecific changes/normal: 0 Age: Greater than 65/45-64/less than 45: 1 Risk factors: (Hypertension, hyperlipidemia, diabetes, coronary disease, tobacco use, cocaine use): 2 Troponin: Greater than 2 times normal limits/1-2 times normal limits/normal: 0 Total: 4 Echocardiogram from last year was reviewed. Consultation: A consultation was placed with the hospitalist, Dr Gipson. The case was discussed and diagnostics were reviewed. The patient was evaluated in the ER for further treatment. Exam and history seem consistent with chest pain with concerns for cardiac in etiology. He was pain-free after nitroglycerin. CTA was negative. He is agreeable treatment plan of admission. Medicine was consulted. Heart score is 4. By the evaluation outlined above emergent etiologies such as aortic dissection, pulmonary embolism, pneumonia, pneumothorax, infections, pericarditis, myocarditis, gastrointestinal, as well as others were deemed relatively unlikely. The pt informed about the findings as listed above. All questions were answered and pleased with the treatment. The chart was completed utilizing [employer] voice recognition software. Grammatical errors, random word insertions, pronoun errors, and incomplete sentences are an occassional consequence of this system due to software limitations, ambient noise, and hardware issues. Any formal questions or concerns about the content, text, or information contained within the body of this dictation should be directly addressed to the physician clinical medical assistant for clarification. Impression & Plan Chest pain Discharge Plan Visit Data Chief Complaint: Chest Pain Stated Complaint: chest pain ED Provider: Aileen Strickland ED Midlevel Provider: Johanna Gonsalves Discharge Problem: Chest pain Patient Disposition: Being Evaluated by Hospitalist Condition: Good Forms Stand Alone Forms: [employer] Prescriptions Prescriptions: No Action Chantix 1 mg tablet 1 mg PO BID RF: 0 Referrals Referrals: PCP,NO [Primary Care Provider] - Discharge Problem: Chest pain Qualifiers: Chest pain type: unspecified Qualified Code(s): R07.9 - Chest pain, unspecified
[2020-06-19 23:24] LABS: Basophils # (auto) 0.05 K/uL (0-0.2); Basophils % (auto) 0.6 %; Eosinophils # (auto) 0.11 K/uL (0-0.5); Eosinophils % (auto) 1.3 %; Hematocrit (blood only) 41.7 % (42-52); Hemoglobin 14.5 g/dL (14.0-18.0); Immature Granulocytes # (auto) 0.03 K/uL (0.00-0.02); Immature Granulocytes % (auto) 0.4 %; Lymphocytes # (auto) 2.17 K/uL (1.2-3.4); Lymphocytes % (auto) 25.8 %; Mean Corpuscular Hemoglobin 32.9 pg (25-34); Mean Corpuscular Hgb Conc 34.8 g/dL (32-36); Mean Corpuscular Volume 94.6 fL (80-100); Mean Platelet Volume 10.8 fL (7.4-10.4); Monocytes % (auto) 7.1 %; Neutrophils # (auto) 5.44 K/uL (1.4-6.5); Neutrophils % (auto) 64.8 %; Platelet Count 149 K/uL (130-400); RDW Coefficient of Variation 13.6 % (11.5-14.5); RDW Standard Deviation 47.2 fL (36.4-46.3); Red Blood Count 4.41 M/uL (4.7-6.1)
[2020-06-19 23:29] LABS: iSTAT Creatinine 1.1 mg/dl (0.6-1.3); iSTAT Hemoglobin 13.9 g/dl (14.0-18.0); iSTAT Ionized Calcium 1.15 mmol/l (1.12-1.32); iSTAT Potassium 4.1 mmol/L (3.3-5.0)
[2020-06-19 23:32] LABS: Partial Thromboplastin Ratio 0.9; Partial Thromboplastin Time 24.8 Seconds (21.0-31.0); Prothrombin Time 10.9 Seconds (9.0-12.0)
[2020-06-19 23:40] LABS: Alanine Aminotransferase 28 U/L (12-78); Albumin Level 3.1 gm/dl (3.4-5.0); Aspartate Aminotransferase 26 U/L (15-37); BUN Creatinine Ratio 13.1 (10-20); Blood Urea Nitrogen 14 mg/dl (7-18); Calcium 8.8 mg/dl (8.5-10.1); Carbon Dioxide 23 mmol/L (21-32); Chloride 109 mmol/L (98-107); Est GFR (African American) 83.5; Est GFR (Non-African American) 72.1; Glucose 122 mg/dl (70-99); Lipase 212 U/L (73-393); Sodium 141 mmol/L (136-145)
[2020-06-19 23:45] LABS: Albumin Globulin Ratio 0.8 (0.9-2); Alkaline Phosphatase 139 U/L (45-117); Bilirubin,Total 0.3 mg/dl (0.2-1); Total Protein 7.1 gm/dl (6.4-8.2); Troponin I < 0.015 ng/ml (0-0.045)
[2020-06-19] MEDS ORDERED: OPTIRAY 320 125ml IV ONE (23:54)
[2020-06-20] MEDS ORDERED: LORazepam 0.25 MG/0.5 ML VIAL IV STA (01:41)
--- NOTE | 2020-06-20 01:42 | History & Physical Report ---
Date of Service June 20, 2020 Assessment & Plan (1) Chest pain: Possible unstable angina hx CAD status post stent (about 15 years ago in [place] as per patient) History medication noncompliance Hypertension, slight elevated hyperlipidemia, supposed to be on statin at home GERD, on home PPI mood disorder, noncompliant with Prozac prescription from psychiatrist prostate cancer status post radiation/hormonal therapy Hyperglycemia rule out DM past alcohol abuse ongoing tobacco abuse OBS PCU Resume patient's aspirin, beta-emir, MIRELLA inhibitor, nitro, statin medications. Patient counseled regarding importance of compliance with home medications. Follow troponin, TTE if with subsequent elevation Cardiology consult RE chest pain, history CAD Psychiatry consult Re: Depression, medication noncompliance Check hemoglobin A1c Nicotine patch as needed DVT prophylaxis with Lovenox subcu Full code Text document was generated using [employer] voice recognition software. It may contain grammatical or spelling errors. Kindly contact undersigned for clarification of any documentation item in question. History of Present Illness Chief Complaint: Chest pain Primary Care Provider: Dr. Bingham History obtained from patient and records. Medical history significant for CAD status post stent, hypertension, hy perlipidemia, GERD, mood disorder, prostate cancer status post radiation/hormonal therapy, chronic back pain, past alcohol abuse, ongoing tobacco abuse. Last confinement July, at the mental health unit for depression. Patient has not been taking cardiac and mood medications for a number of months now for unclear reasons. Patient was watching television last night when he experienced substernal heaviness going to the neck and jaw similar to heart attack in the past. No shortness of breath, no diaphoresis. Relief with aspirin and nitroglycerin administration. Patient also noted loose stools yesterday without abdominal pain. No recent antibiotic intake or no known sick contacts. Patient complaining of chronic low back pain. Depression is not okay as per patient but denies suicidality. Medical History as above Surgical History : Urologic procedures Family History : Heart disease Personal/Social history : Few cigarettes a day, past alcohol use, currently unemployed Allergies Allergy/AdvReac Type Severity Reaction Status Date / Time No Known Allergies Allergy Verified 06/19/20 23:28 Home Medications Home Medications Medication Instructions Recorded Confirmed Type varenicline [Chantix] 1 mg PO BID 06/19/20 06/19/20 History Past Med/Surg History Medical History Hypertension No significant family history Prostate cancer Surgical History No significant past surgical history Stented coronary artery Family History Unknown Cancer brother and father had cancer (type not known at this time) Other No pertinent family history in first degree relatives Social History Smoking Status: Former smoker Hx Alcohol Use: No Hx Substance Use: No Preferred Language: Libyan Communication Ability: Effective Division Roadmaster Required: No Beliefs That Will Affect Care: None Current Living Situation: Alone Other Information That Helps Us Care for You: No Feels Safe at Home: Yes Safety Concerns: Feels Safe At This Time Assistive Devices: None Review of Systems Review of Systems: As per HPI, all 10 systems reviewed, all other ROS negative Physical Exam Physical Exam: GENERAL: Comfortable, slightly anxious, obese, no respiratory distress SKIN: Normal color, warm HEENT: Alopecia, bespectacled, [place] palpebral conjunctivae, no ptosis, moist buccal mucosa NECK : Supple, short neck, no tenderness CHEST : CTA, no tenderness HEART : RRR, no obvious murmurs ABDOMEN: Some distention, nontender EXTREMITIES : No LE swelling/tenderness, no other conspicuous deformities noted NEUROLOGIC : Coherent, no facial asymmetry, no other gross focality Results & Data Results & Data ([facility]) Vital Signs (Past 12 Hours) Vital Signs Temp Pulse Resp BP Pulse Ox 06/20/20 01:01 69 24 164/89 H 96 06/20/20 00:30 73 19 139/84 97 06/20/20 00:01 88 23 132/68 95 06/19/20 23:30 92 H 22 103/83 95 06/19/20 23:17 99 H 18 94 06/19/20 23:16 37.0 C 95 06/19/20 23:08 100 H 20 162/80 H 95 Laboratory Results Laboratory Results WBC 8.40 K/uL (4.8-10.8) 06/19/20 23:05 RBC 4.41 M/uL (4.7-6.1) L 06/19/20 23:05 Hgb 14.5 g/dL (14.0-18.0) 06/19/20 23:05 POC Hgb 13.9 g/dl (14.0-18.0) L 06/19/20 23:15 Hct 41.7 % (42-52) L 06/19/20 23:05 POC Hct 41 % (42-52) L 06/19/20 23:15 MCV 94.6 fL (80-100) 06/19/20 23:05 MCH 32.9 pg (25-34) 06/19/20 23:05 MCHC 34.8 g/dL (32-36) 06/19/20 23:05 RDW Std Deviation 47.2 fL (36.4-46.3) H 06/19/20 23:05 RDW Coeff of Steve 13.6 % (11.5-14.5) 06/19/20 23:05 Plt Count 149 K/uL (130-400) 06/19/20 23: MPV 10.8 fL (7.4-10.4) H 06/19/20 23:05 Immature Gran % (Auto) 0.4 % 06/19/20 23:05 Neut % (Auto) 64.8 % 06/19/20 23:05 Lymph % (Auto) 25.8 % 06/19/20 23:05 Edmunds % (Auto) 7.1 % 06/19/20 23:05 Eos % (Auto) 1.3 % 06/19/20 23:05 Baso % (Auto) 0.6 % 06/19/20 23:05 Neut # (Auto) 5.44 K/uL (1.4-6.5) 06/19/20 23:05 Lymph # (Auto) 2.17 K/uL (1.2-3.4) 06/19/20 23:05 Edmunds # (Auto) 0.60 K/uL (0.11-0.59) H 06/19/20 23:05 Eos # (Auto) 0.11 K/uL (0-0.5) 06/19/20 23:05 Baso # (Auto) 0.05 K/uL (0-0.2) 06/19/20 23:05 Immature Gran # (Auto) 0.03 K/uL (0.00-0.02) H 06/19/20 23:05 PT 10.9 Seconds (9.0-12.0) 06/19/20 23:05 INR 1.0 (0.9-1.1) 06/19/20 23:05 APTT 24.8 Seconds (21.0-31.0) 06/19/20 23:05 PTT Ratio 0.9 06/19/20 23:05 POC Sodium 140 mmol/L (135-144) 06/19/20 23:15 Sodium 141 mmol/L (136-145) 06/19/20 23:05 POC Potassium 4.1 mmol/L (3.3-5.0) 06/19/20 23:15 Potassium 4.0 mmol/L (3.5-5.1) 06/19/20 23:05 POC Chloride 107 mmol/L (101-112) 06/19/20 23:15 Chloride 109 mmol/L (98-107) H 06/19/20 23:05 Carbon Dioxide 23 mmol/L (21-32) 06/19/20 23:05 POC Total CO2 23 mmol/L (24-31) L 06/19/20 23:15 Anion Gap 10.0 (3-11) 06/19/20 23:05 POC Anion Gap 15.0 mmol/L (16-25) L 06/19/20 23:15 POC BUN 15 mg/dl (7-18) 06/19/20 23:15 BUN 14 mg/dl (7-18) 06/19/20 23:05 Creatinine 1.10 mg/dl (0.6-1.4) 06/19/20 23:05 POC Creatinine 1.1 mg/dl (0.6-1.3) 06/19/20 23:15 Est Cr Clr Drug Dosing Not Reportable 06/19/20 23:05 Est GFR ( Amer) 83.5 06/19/20 23:05 Est GFR (Non-Af Amer) 72.1 06/19/20 23:05 BUN/Creatinine Ratio 13.1 (10-20) 06/19/20 23:05 Glucose 122 mg/dl (70-99) H 06/19/20 23:05 POC Glucose (other) 119 mg/dl (70-99) H 06/19/20 23:15 Calcium 8.8 mg/dl (8.5-10.1) 06/19/20 23:05 POC Ioniz Calcium Gonzalo 1.15 mmol/l (1.12-1.32) 06/19/20 23:15 Total Bilirubin 0.3 mg/dl (0.2-1) 06/19/20 23:05 AST 26 U/L (15-37) 06/19/20 23:05 ALT 28 U/L (12-78) 06/19/20 23:05 Alkaline Phosphatase 139 U/L (45-117) H 06/19/20 23:05 Troponin I < 0.015 ng/ml (0-0.045) 06/19/20 23:05 Total Protein 7.1 gm/dl (6.4-8.2) 06/19/20 23:05 Albumin 3.1 gm/dl (3.4-5.0) L 06/19/20 23:05 Globulin 4.0 gm/dl (2.5-4.0) 06/19/20 23:05 Albumin/Globulin Ratio 0.8 (0.9-2) L 06/19/20 23:05 Lipase 212 U/L (73-393) 06/19/20 23:[address] chest initial read: No pleural embolism. No aortic dissection. Atherosclerotic calcifications of the thoracic aorta and arch vessels. Coronary calcification. EKG as per my interpretation : Rate 105, sinus tachycardia, normal axis, no ischemia
[2020-06-20] MEDS ORDERED: METOPROLOL TARTRATE 25 MG TAB PO STA (01:43)
[2020-06-20 02:08] LABS: Magnesium 1.9 mg/dl (1.8-2.4); Troponin I < 0.015 ng/ml (0-0.045)
[2020-06-20] MEDS: LIDOCAINE 5% 1 PATCH TD SCH (02:13)
[2020-06-20] MEDS ORDERED: MoRPHine SULFATE 4 MG/ML 1 ML CARP\\VIAL IV PRN (03:14)
[2020-06-20] MEDS ORDERED: PROMETHAZINE HCL 12.5 MG in SODIUM CHLORIDE 0.9% 50 ML IV PRN (03:14)
[2020-06-20] MEDS ORDERED: LACTATED RINGER'S 1,000 ML IV SCH (03:14)
[2020-06-20] MEDS ORDERED: LORazepam 0.5 MG/1 ML VIAL IV PRN (03:14)
[2020-06-20] MEDS ORDERED: oxyCODONE HCL IR 5 MG TAB (IMMEDIATE RELEASE) PO PRN (03:14)
[2020-06-20] MEDS ORDERED: ACETAMINOPHEN 325 MG TAB PO PRN (03:14)
[2020-06-20] MEDS ORDERED: NITROGLYCERIN SL 0.4 MG/TAB TAB SL PRN (03:14)
[2020-06-20 06:42] LABS: Estimated Average Glucose 114 mg/dl; Hemoglobin A1C 5.6 % (4.5-5.6)
--- NOTE | 2020-06-20 06:45 | XRay Report ---
XR chest 1V portable HISTORY: 60 years-old Male Chest Pain acute atypical chest pain COMPARISON: Chest radiograph 07/11/2019, CTA chest 06/19/2020 TECHNIQUE: Portable AP view of the chest FINDINGS: Cardiomediastinal and hilar silhouettes are within normal limits. There is no pneumothorax, pleural e ffusion, airspace consolidation or overt pulmonary edema. Bones appear grossly intact. IMPRESSION: No acute process. ACT 112: Negative or not required by law. The above report was generated using voice recognition software. It may contain grammatical, syntax o r spelling errors. Electronically signed by: Wilfred Lr M.D. 06/20/2020 6:43 AM
--- NOTE | 2020-06-20 07:36 | CT Scan Report ---
CT angio chest dissec wo/w con HISTORY: 60 years-old Male severe cp-back acute severe chest and back pain COMPARISON: CTA chest 07/11/2019 TECHNIQUE: CTA of the chest was obtained both with and without the use of 119 mL Optiray 320. 3-D cor onal and sagittal MIPS were obtained from the axial data set and were submitted for review. All measu rements were obtained according to NASCET criteria. A dose lowering technique was used consistent wit h the principals chelita LAZO. FINDINGS: CTA: Heart is upper limits of normal in size. Mild mural fatty changes of the left ventricular apex with m yocardial thickening suggest prior myocardial infarction. No intramural or mediastinal hematoma on th e noncontrast scan. Extensive coronary artery calcifications. Moderate mixed plaque of the thoracic a ortic arch. There is no thoracic aortic aneurysm or dissection. There is patency of the imaged great vessels. The pulmonary arterial tree is opacified to the level of the proximal subsegmental branches and demonstrates no filling defects to suggest thromboembolic disease. CT CHEST: No large thyroid nodule or enlarged thoracic lymph nodes identified. Moderate bilateral gynecomastia. No pneumothorax, pleural effusion, airspace consolidation or overt pulmonary edema. There are no bhupinder picious pulmonary nodules or masses. Central airways appear patent. There is mild nonspecific mid and distal esophageal wall thickening. Contracted gallbladder. Hepatic steatosis with marginal nodularity of the liver suggestive of cirrhosis. Unchanged 8 mm lucent lesion involving the T2 vertebral body may reflect a hemangioma. Mild cortical thickening of the posterior lateral left eighth rib is also unchanged from comparison and may reflect a healed remote fracture. B ones appear intact. IMPRESSION: 1. Unremarkable CTA of the chest. 2. No acute intrathoracic abnormality. 3. Hepatic steatosis with cirrhosis. ACT 112: Negative or not required by law. The above report was generated using voice recognition software. It may contain grammatical, syntax o r spelling errors. Electronically signed by: Wilfred Lr M.D. 06/20/2020 7:35 AM
[2020-06-20 08:37] LABS: Basophils # (auto) 0.05 K/uL (0-0.2); Basophils % (auto) 0.6 %; Eosinophils # (auto) 0.19 K/uL (0-0.5); Eosinophils % (auto) 2.4 %; Hematocrit (blood only) 41.7 % (42-52); Immature Granulocytes # (auto) 0.04 K/uL (0.00-0.02); Immature Granulocytes % (auto) 0.5 %; Lymphocytes # (auto) 2.18 K/uL (1.2-3.4); Lymphocytes % (auto) 27.6 %; Mean Corpuscular Hemoglobin 32.6 pg (25-34); Mean Corpuscular Hgb Conc 33.6 g/dL (32-36); Mean Platelet Volume 10.8 fL (7.4-10.4); Monocytes # (auto) 0.82 K/uL (0.11-0.59); Monocytes % (auto) 10.4 %; Neutrophils # (auto) 4.61 K/uL (1.4-6.5); Neutrophils % (auto) 58.5 %; Platelet Count 126 K/uL (130-400); RDW Coefficient of Variation 14.1 % (11.5-14.5); RDW Standard Deviation 49.7 fL (36.4-46.3); White Blood Count 7.89 K/uL (4.8-10.8)
[2020-06-20] MEDS ORDERED: lisinopril 5 MG TAB PO SCH (09:00)
[2020-06-20 09:01] LABS: BUN Creatinine Ratio 25.3 (10-20); Blood Urea Nitrogen 21 mg/dl (7-18); Calcium 8.8 mg/dl (8.5-10.1); Carbon Dioxide 28 mmol/L (21-32); Chloride 107 mmol/L (98-107); Cholesterol 242 mg/dl (0-200); Creatinine Clr Calc Pharmacy 113.3 ml/min; Est GFR (African American) 110.1; Glucose 104 mg/dl (70-99); Potassium 3.8 mmol/L (3.5-5.1); Sodium 139 mmol/L (136-145)
--- NOTE | 2020-06-20 09:01 | Psychiatric Consultation ---
Date of Consultation June 20, 2020 Impression / Recommendations Impression Dr. Leonarda Mccoy was directly involved in review and discussion of the patient's case and participated in medical decision making regarding treatment recommendations. RECOMMENDATIONS: 06/20 - Psychiatric consultation requested by our hospitalist service to evaluate patient for depression. Pt was admitted to our unit in 07/2019 after verbalizing passive suicidal statements to his son and reporting worsening depression in the context of prostate cancer diagnosis/treatment. Pt was discharged on fluoxetine 20mg at that time, and declined recommended referrals for therapy and psychiatry appointments. - Pt continues to endorse symptoms of depression (poor sleep, increased appetite/weight gain, limited energy, reduced concentration, and hopelessness). He reports fluoxetine was not helpful for his mood and he stopped taking the medication. Pt does verbalize frustrations with medical treatment for his various conditions, depression, cancer, etc - and therefore admits to noncompliance with recommendations. Pt did agree that a change is necessary at this time, and he is therefore willing for antidepressant medications and referrals for outpatient psychiatric treatment. - Pt agreed to initiated duloxetine 30mg daily to target depression, as this may also provide benefit for chronic pain (will likely need to be titrated to 90 - 120mg for maximum pain benefits to be observed). Risks, benefits, and potential side effects were reviewed. Pt verbalized understanding and is agreeable with this medication addition. He also agreed to start scheduled dosing of melatonin to target concerns for difficulty falling and remaining asleep. Will begin at 6mg qHS. - Will attempt to secure outpatient appointments for patient to receive therapy and psychiatric medication management after discharge from the hospital. Will also attempt to gain collateral from the patient's son, with whom the patient lives, to get additional information about patient's presentation. - Pt does make several statements of hopelessness during our conversation. He does deny active SI and self-harm thoughts. Pt does feel he would be able to reach out to supports before doing anything to harm himself. He is open to and agreeable with outpatient treatment at this time. There is no criteria at this time for inpatient psychiatric treatment, and we will do our best to arrange outpatient appointments during his medical admission. - Appreciate the opportunity to participate in the care of this patient. Please reach out to our service with any additional questions or updates. Risk Factors Assessment Do You Have Access To A Gun?: No Psych History Identifying Data 60-year-old male admitted medically on 06/20/2020 after presenting to the ED with complaints of chest pain. Psychiatric consultation was requested to evaluate patient for depression. Chief Complaint "I get depressed really bad, especially at night." History of Present Illness Neto Rios is a 60-year-old male admitted medically on 06/20/2020 after presenting to the ED with complaints of chest pain. Pt does have a significant cardiac history, and has reportedly been noncompliant with his medication regimen. Pt does have a history of depression, and was admitted to our unit in 07/2019 after verbalizing passive suicidal statements to his son. Pt refused outpatient services at time of discharge, but was prescribed fluoxetine. It appears that the patient is no longer taking this medication. Psychiatric consultation is requested this admission to evaluate patient for depression. Pt is cooperative with psychiatric assessment. He does admit "I get depression really bad, especially at night." Pt states poor sleep is one of his primary concerns, admitting "I'm chencho if I get 3 hours." Pt also endorses low energy, difficulty concentrating, and significant weight gain of 100lbs in "the last couple years." Pt reports concerns related to his treatment for prostate cancer, stating the hormone therapy contributed to weight gain and "getting breasts." Pt does state he does not like the changes to his body, and refused to continue treatment "if it was just going to turn me into a woman." Pt does verbalize a few statements of passive SI, but clearly denies any active suicidality or thoughts of self-harm. He reports he does want to find something that will improve his mood and is now motivated for treatment. Pt states he is willing to discuss outpatient referrals for therapy and medication management. Pt reports he took fluoxetine for "2 or 3 months" after it was titrated to 40mg by his PCP. Pt felt the medication was not effective so stopped taking it. He is willing to try an alternative medication to target his mood. Due to patient's frustration with chronic pain, we discussed recommendation for trial of duloxetine. Risks, benefits, and potential side effects were discussed. Pt is agreeable with this medication addition. He was also willing to start melatonin to target sleep concerns. Pt denied other specific needs or concerns at this time. He was encouraged to reach out to our service with any additional questions and was informed we would be following up to assist with aftercare referrals. Past Psychiatric History Current Psychiatric Diagnosis: Major depressive disorder Outpatient Services: None Previous Psych Admissions: 07/2019 - [facility] - admitted for passive SI verba lizsocrates to son, declined outpatient services at discharge Do You Have Access To A Gun?: No History of Previous Suicide Attempt: No Past Medication Trials: 1. Prozac - pt state he was titrated to 40mg with no additional benefit, stopped taking the medication Allergies Allergy/AdvReac Type Severity Reaction Status Date / Time No Known Allergies Allergy Verified 06/19/20 23:28 Home Medications Home Medications Medication Instructions Recorded Confirmed Type varenicline [Chantix] 1 mg PO BID 06/19/20 06/19/20 History Family History Denies known family history of mental health conditions. Substance Abuse History Continue tobacco use, "just a couple here and there" - Admits to history of alcohol abuse. Denies use of illicit substances. Personal History Living Arrangements: Home (with son) Born In: [place] Highest Grade Completed: Did Not Graduate High School (10th grade) Employment Status: Retired Marital Status: ( from for 3 years; once previouslyat 17y/o and ) Number Of Children: 2 adult children - son and daughter Beliefs That Will Affect Care: None History of Legal Problems: Denied Psychological Trauma History Comment: Denied Patient History Medical History Hypertension No significant family history Prostate cancer Surgical History No significant past surgical history Stented coronary artery Family History Unknown Cancer brother and father had cancer (type not known at this time) Other No pertinent family history in first degree relatives Social History Smoking Status: Former smoker Hx Alcohol Use: No Hx Substance Use: No Preferred Language: Vincentian Communication Ability: Effective Director Of Labor Relations Required: No Beliefs That Will Affect Care: None Current Living Situation: Alone Other Information That Helps Us Care for You: No Feels Safe at Home: Yes Safety Concerns: Feels Safe At This Time Assistive Devices: None Physical Exam Psychiatric: Orientation: alert, oriented x 3 and cooperative (superficially ) Apperance: appropriately dressed, appropriately groomed and appeared stated age Obese-appearing male, laying in bed in no acute distress. Pt is appropriately dressed, wearing a hospital gown. Level of grooming/hygiene appears adequate. Eye Contact: good eye contact Motor Behavior: no abnormal motor movements (observed while laying in bed ) Speech: normal rate/rhythm/volume of speech Affect: + depressed affect and mood congruent with affect Mood: + depressed mood Thought Process: goal directed thought process and clear/coherent thought process Thought Content: reality based without delusions and + hopelessness Suicidal Thoughts: denies suicidal thoughts, denies suicidal plan and denies suicidal intent intermittent pas sive thoughts and hopelessness, but denies true or active SI Homicidal Thoughts: denies homicidal thoughts Hallucinations: no auditory hallucinations and no visual hallucinations Cognition: recent memory grossly intact, attention grossly intact and language grossly intact Estimated Intel ligence: consistent with education level Insight: + fair insight Judgement: + fair judgement Vital Signs (Past 24 Hours): Last Vital Signs Temp 36.9 C 06/20/20 07:16 Pulse 58 L 06/20/20 07:16 Resp 19 06/20/20 07:16 BP 130/77 06/20/20 07:16 Pulse Ox 95 06/20/20 07:16 Review of Systems Constitutional: reports poor sleep Cardiovascular: denied Respiratory: denied Gastrointestinal: reports nausea/abdominal discomfort Genitourinary: reports frequent urination Neurological: denied Musculoskeletal: reports chronic back and knee pain Psychiatric: denies symptoms other than stated above Total of at least 10 systems reviewed, pertinent positives as above and in HPI. Results & Data (PSY) Medications Administered Lactated Ringer's (Lr) 1,000 mls @ 50 mls/hr IV .Q20H [facility] Stop: 07/20/20 03:13 Last Admin: 06/20/20 03:31 Dose: 50 mls/hr Documented by: [id number] Lidocaine (Lidocaine 5% 1 Patch) 1 patch TD QAM [facility] Stop: 07/20/20 01:59 Last Admin: 06/20/20 02:13 Dose: 1 patch Documented by: [id number] Coding Level of Care Code 02984 U Intl Hosp Care Lvl 3
[2020-06-20 09:06] LABS: Chol HDL Ratio 7; HDL Cholesterol 33 mg/dl; Triglycerides 455 mg/dl (0-150); Troponin I < 0.015 ng/ml (0-0.045)
[2020-06-20] MEDS: ASPIRIN 81 MG ECTAB PO SCH (09:19)
[2020-06-20] MEDS: ATORVASTATIN 20 MG TAB PO SCH (09:19)
[2020-06-20] MEDS: ENOXAPARIN INJ 40 MG/0.4 ML SYR SQ SCH (09:20)
[2020-06-20] MEDS: ISOSORBIDE MONO EXTENDED REL 30 MG TABCR PO SCH (09:20)
[2020-06-20] MEDS: PANTOprazole 40 MG TAB PO SCH (09:20)
--- NOTE | 2020-06-20 09:52 | Hospitalist Progress Note ---
Date of Service June 20, 2020 Assessment & Plan (1) Chest pain: Possible unstable angina hx CAD status post stent (about 15 years ago in [place] as per patient) History medication noncompliance Resume patient's aspirin, beta-emir, MIRELLA inhibitor, nitro, statin medications. Patient counseled regarding importance of compliance with home medications. TTE ordered Cardiology consult RE chest pain, history CAD Mood disorder, noncompliant with meds, Prozac prescription from psychiatrist Psychiatry consult Re: Depression, medication noncompliance Started patient on Cymbalta and melatonin Loose stools -Patient reports history of IBS C. difficile negative Stool culture pending Hypertension, at goal now hyperlipidemia, supposed to be on statin at home GERD, on home PPI prostate cancer status post radiation/hormonal therapy Hyperglycemia rule out DM, Check hemoglobin A1c 5.6% past alcohol abuse Ongoing tobacco abuse, Nicotine patch as needed DVT prophylaxis with Lovenox subcu Full code Admission and Anticipated Discharge Date Admission Date: June 20, 2020 Subjective Patient is currently lying in bed, in no acute distress. He complains about having frequent urination and loose stools. Currently denies any chest pain or shortness of breath, dizziness or lightheadedness, palpitations. Was seen by psychiatry earlier, will be started on Cymbalta, and melatonin. Patient states he resides currently with his son. from , clearly patient is still upset about his situation with his and history of prostate cancer, status post treatment. Keeps stating that he wishes he did not do the treatment for cancer as he is upset about all the side effects. Stool negative for C. difficile. Stool culture pending. Review of Systems Review of Systems: All systems reviewed & are unremarkable except as noted in HPI & below Constitutional: no fever and no chills Respiratory: no cough and no dyspnea Cardiovascular: no chest pain and no palpitations Gastrointestinal: + diarrhea/loose stools; no abdominal pain, no nausea, no vomiting and no blood in stools Genitourinary: + urinary frequency Physical Exam Physical Exam: GENERAL: slightly anxious, obese male laying in bed, resting, in no respiratory distress HEENT: Alopecia, bespectacled, [place] palpebral conjunctivae, no ptosis, moist buccal mucosa NECK : Supple, short neck, no tenderness CHEST : CTA, no tenderness HEART : RRR, no obvious murmurs ABDOMEN: Some distention, nontender to palpation, soft, obese SKIN: Normal color, warm EXTREMITIES : No LE swelling/tenderness, moves extremities spontaneously NEUROLOGIC : alert and oriented x3, no facial asymmetry, speech fluent, moves extremities spontaneously Results & Data Results & Data ([facility]) Vital Signs (Past 12 Hours) Vital Signs Temp Pulse Pulse Resp BP BP Pulse Ox 06/20/20 07:16 36.9 C 58 L 19 130/77 95 06/20/20 03:41 64 06/20/20 03:00 36.4 C L 67 16 154/80 H 95 06/20/20 02:30 84 22 157/98 H 97 06/20/20 01:31 65 20 132/75 97 06/20/20 01:01 69 24 164/89 H 96 06/20/20 00:30 73 19 139/84 97 06/20/20 00:01 88 23 132/68 95 06/19/20 23:30 92 H 22 103/83 95 06/19/20 23:17 99 H 18 94 06/19/20 23:16 37.0 C 95 06/19/20 23:08 100 H 20 162/80 H 95 Laboratory Results 06/20/20 06/20/20 06/20/20 Range/Units 08:30 07:58 07:58 WBC 7.89 (4.8-10.8) K/uL RBC 4.30 L (4.7-6.1) M/uL Hgb 14.0 (14.0-18.0) g/dL POC Hgb (14.0-18.0) g/dl Hct 41.7 L (42-52) % POC Hct (42-52) % MCV 97.0 (80-100) fL MCH 32.6 (25-34) pg MCHC 33.6 (32-36) g/dL RDW Std Deviation 49.7 H (36.4-46.3) fL RDW Coeff of Steve 14.1 (11.5-14.5) % Plt Count 126 L (130-400) K/uL MPV 10.8 H (7.4-10.4) fL Immature Gran % (Auto) 0.5 % Neut % (Auto) 58.5 % Lymph % (Auto) 27.6 % Carbon % (Auto) 10.4 % Eos % (Auto) 2.4 % Baso % (Auto) 0.6 % Neut # (Auto) 4.61 (1.4-6.5) K/uL Lymph # (Auto) 2.18 (1.2-3.4) K/uL Carbon # (Auto) 0.82 H (0.11-0.59) K/uL Eos # (Auto) 0.19 (0-0.5) K/uL Baso # (Auto) 0.05 (0-0.2) K/uL Immature Gran # (Auto) 0.04 H (0.00-0.02) K/uL PT (9.0-12.0) Seconds INR (0.9-1.1) APTT (21.0-31.0) Seconds PTT Ratio POC Sodium (135-144) mmol/L Sodium 139 (136-145) mmol/L POC Potassium (3.3-5.0) mmol/L Potassium 3.8 (3.5-5.1) mmol/L POC Chloride (101-112) mmol/L Chloride 107 (98-107) mmol/L Carbon Dioxide 28 (21-32) mmol/L POC Total CO2 (24-31) mmol/L Anion Gap 4.0 (3-11) POC Anion Gap (16-25) mmol/L POC BUN (7-18) mg/dl BUN 21 H (7-18) mg/dl Creatinine 0.83 (0.6-1.4) mg/dl POC Creatinine (0.6-1.3) mg/dl Est Cr Clr Drug Dosing 113.3 Est GFR ( Amer) 110.1 Est GFR (Non-Af Amer) 95.0 BUN/Creatinine Ratio 25.3 H (10-20) Glucose 104 H (70-99) mg/dl POC Glucose (other) (70-99) mg/dl Estimat Average Glucose mg/dl Hemoglobin A1c (4.5-5.6) % Calcium 8.8 (8.5-10.1) mg/dl POC Ioniz Calcium Gonzalo (1.12-1.32) mmol/l Magnesium (1.8-2.4) mg/dl Total Bilirubin (0.2-1) mg/dl AST (15-37) U/L ALT (12-78) U/L Alkaline Phosphatase (45-117) U/L Troponin I < 0.015 (0-0.045) ng/ml Total Protein (6.4-8.2) gm/dl Albumin (3.4-5.0) gm/dl Globulin (2.5-4.0) gm/dl Albumin/Globulin Ratio (0.9-2) Triglycerides 455 H (0-150) mg/dl Cholesterol 242 H (0-200) mg/dl LDL Cholesterol, Calc mg/dl VLDL Cholesterol, Calc mg/dl HDL Cholesterol 33 mg/dl Cholesterol/HDL Ratio 7 Lipase (73-393) U/L Stl C. diff Tox B Gene Negative Cdiff Gene (Neg) 06/20/20 06/19/20 06/19/20 Range/Units 01:21 23:15 23:05 WBC (4.8-10.8) K/uL RBC (4.7-6.1) M/uL Hgb (14.0-18.0) g/dL POC Hgb 13.9 L (14.0-18.0) g/dl Hct (42-52) % POC Hct 41 L (42-52) % MCV (80-100) fL MCH (25-34) pg MCHC (32-36) g/dL RDW Std Deviation (36.4-46.3) fL RDW Coeff of Steve (11.5-14.5) % Plt Count (130-400) K/uL MPV (7.4-10.4) fL Immature Gran % (Auto) % Neut % (Auto) % Lymph % (Auto) % Carbon % (Auto) % Eos % (Auto) % Baso % (Auto) % Neut # (Auto) (1.4-6.5) K/uL Lymph # (Auto) (1.2-3.4) K/uL Carbon # (Auto) (0.11-0.59) K/uL Eos # (Auto) (0-0.5) K/uL Baso # (Auto) (0-0.2) K/uL Immature Gran # (Auto) (0.00-0.02) K/uL PT (9.0-12.0) Seconds INR (0.9-1.1) APTT (21.0-31.0) Seconds PTT Ratio POC Sodium 140 (135-144) mmol/L Sodium (136-145) mmol/L POC Potassium 4.1 (3.3-5.0) mmol/L Potassium (3.5-5.1) mmol/L POC Chloride 107 (101-112) mmol/L Chloride (98-107) mmol/L Carbon Dioxide (21-32) mmol/L POC Total CO2 23 L (24-31) mmol/L Anion Gap (3-11) POC Anion Gap 15.0 L (16-25) mmol/L POC BUN 15 (7-18) mg/dl BUN (7-18) mg/dl Creatinine (0.6-1.4) mg/dl POC Creatinine 1.1 (0.6-1.3) mg/dl Est Cr Clr Drug Dosing Est GFR ( Amer) Est GFR (Non-Af Amer) BUN/Creatinine Ratio (10-20) Glucose (70-99) mg/dl POC Glucose (other) 119 H (70-99) mg/dl Estimat Average Glucose 114 mg/dl Hemoglobin A1c 5.6 (4.5-5.6) % Calcium (8.5-10.1) mg/dl POC Ioniz Calcium Gonzalo 1.15 (1.12-1.32) mmol/l Magnesium 1.9 (1.8-2.4) mg/dl Total Bilirubin (0.2-1) mg/dl AST (15-37) U/L ALT (12-78) U/L Alkaline Phosphatase (45-117) U/L Troponin I < 0.015 (0-0.045) ng/ml Total Protein (6.4-8.2) gm/dl Albumin (3.4-5.0) gm/dl Globulin (2.5-4.0) gm/dl Albumin/Globulin Ratio (0.9-2) Triglycerides (0-150) mg/dl Cholesterol (0-200) mg/dl LDL Cholesterol, Calc mg/dl VLDL Cholesterol, Calc mg/dl HDL Cholesterol mg/dl Cholesterol/HDL Ratio Lipase (73-393) U/L Stl C. diff Tox B Gene (Neg) 06/19/20 06/19/20 06/19/20 Range/Units 23:05 23:05 23:05 WBC 8.40 (4.8-10.8) K/uL RBC 4.41 L (4.7-6.1) M/uL Hgb 14.5 (14.0-18.0) g/dL POC Hgb (14.0-18.0) g/dl Hct 41.7 L (42-52) % POC Hct (42-52) % MCV 94.6 (80-100) fL MCH 32.9 (25-34) pg MCHC 34.8 (32-36) g/dL RDW Std Deviation 47.2 H (36.4-46.3) fL RDW Coeff of Steve 13.6 (11.5-14.5) % Plt Count 149 (130-400) K/uL MPV 10.8 H (7.4-10.4) fL Immature Gran % (Auto) 0.4 % Neut % (Auto) 64.8 % Lymph % (Auto) 25.8 % Carbon % (Auto) 7.1 % Eos % (Auto) 1.3 % Baso % (Auto) 0.6 % Neut # (Auto) 5.44 (1.4-6.5) K/uL Lymph # (Auto) 2.17 (1.2-3.4) K/uL Carbon # (Auto) 0.60 H (0.11-0.59) K/uL Eos # (Auto) 0.11 (0-0.5) K/uL Baso # (Auto) 0.05 (0-0.2) K/uL Immature Gran # (Auto) 0.03 H (0.00-0.02) K/uL PT 10.9 (9.0-12.0) Seconds INR 1.0 (0.9-1.1) APTT 24.8 (21.0-31.0) Seconds PTT Ratio 0.9 POC Sodium (135-144) mmol/L Sodium 141 (136-145) mmol/L POC Potassium (3.3-5.0) mmol/L Potassium 4.0 (3.5-5.1) mmol/L POC Chloride (101-112) mmol/L Chloride 109 H (98-107) mmol/L Carbon Dioxide 23 (21-32) mmol/L POC Total CO2 (24-31) mmol/L Anion Gap 10.0 (3-11) POC Anion Gap (16-25) mmol/L POC BUN (7-18) mg/dl BUN 14 (7-18) mg/dl Creatinine 1.10 (0.6-1.4) mg/dl POC Creatinine (0.6-1.3) mg/dl Est Cr Clr Drug Dosing Not Reportable Est GFR ( Amer) 83.5 Est GFR (Non-Af Amer) 72.1 BUN/Creatinine Ratio 13.1 (10-20) Glucose 122 H (70-99) mg/dl POC Glucose (other) (70-99) mg/dl Estimat Average Glucose mg/dl Hemoglobin A1c (4.5-5.6) % Calcium 8.8 (8.5-10.1) mg/dl POC Ioniz Calcium Gonzalo (1.12-1.32) mmol/l Magnesium (1.8-2.4) mg/dl Total Bilirubin 0.3 (0.2-1) mg/dl AST 26 (15-37) U/L ALT 28 (12-78) U/L Alkaline Phosphatase 139 H (45-117) U/L Troponin I < 0.015 (0-0.045) ng/ml Total Protein 7.1 (6.4-8.2) gm/dl Albumin 3.1 L (3.4-5.0) gm/dl Globulin 4.0 (2.5-4.0) gm/dl Albumin/Globulin Ratio 0.8 L (0.9-2) Triglycerides (0-150) mg/dl Cholesterol (0-200) mg/dl LDL Cholesterol, Calc mg/dl VLDL Cholesterol, Calc mg/dl HDL Cholesterol mg/dl Cholesterol/HDL Ratio Lipase 212 (73-393) U/L Stl C. diff Tox B Gene (Neg) Medications Administered Current Inpatient Medications Acetaminophen (Acetaminophen 325 Mg Tab) 650 mg PO Q4H PRN PRN Reason: Pain or Fever Stop: 07/20/20 03:13 Aspirin (Aspirin 81 Mg Ectab) 81 mg PO [facility] Stop: 07/20/20 08:59 Last Admin: 06/20/20 09:19 Dose: 81 mg Documented by: Atorvastatin Calcium (Atorvastatin 20 Mg Tab) 20 mg PO [facility] Stop: 07/20/20 08:59 Last Admin: 06/20/20 09:19 Dose: 20 mg Documented by: Enoxaparin Sodium (Enoxaparin Inj 40 Mg/0.4 Ml Syr) 40 mg SQ QAM [facility] Stop: 07/20/20 08:59 Last Admin: 06/20/20 09:20 Dose: Not Given Documented by: Promethazine HCl 12.5 mg/ (Sodium Chloride) 50.5 mls @ 202 mls/hr IV Q6H PRN PRN Reason: Nausea And Vomiting Stop: 07/20/20 03:13 Lorazepam (Ativan) 0.5 mg in 1 mls @ 1 mls/min IV Q4H PRN PRN Reason: Anxiety/Agitation Stop: 07/20/20 03:13 Lactated Ringer's (Lr) 1,000 mls @ 50 mls/hr IV .Q20H [facility] Stop: 07/20/20 03:13 Last Admin: 06/20/20 03:31 Dose: 50 mls/hr Documented by: Isosorbide Mononitrate (Isosorbide Carbon Extended Rel 30 Mg Tabcr) 30 mg PO [facility] Stop: 07/20/20 08:59 Last Admin: 06/20/20 09:20 Dose: 30 mg Documented by: Lidocaine (Lidocaine 5% 1 Patch) 1 patch TD [facility] Stop: 07/20/20 01:59 Last Admin: 06/20/20 02:13 Dose: 1 patch Documented by: Lisinopril (Lisinopril 5 Mg Tab) 5 mg PO [facility] Stop: 07/20/20 08:59 Last Admin: 06/20/20 09:19 Dose: 5 mg Documented by: Metoprolol Tartrate (Metoprolol Tartrate 25 Mg Tab) 12.5 mg PO BID [facility] Stop: 07/20/20 20:59 Miscellaneous (Remove Lidoderm Patch) 1 ea N/A HS [facility] Stop: 07/20/20 13:59 Morphine Sulfate (Morphine Sulfate 4 Mg/Ml 1 Ml Carp\Vial) 4 mg IV Q4H PRN PRN Reason: Pain Stop: 07/04/20 03:13 Nitroglycerin (Nitroglycerin Sl 0.4 Mg/Tab Tab) 0.4 mg SL UD PRN PRN Reason: Chest Pain Stop: 07/20/20 03:13 Oxycodone HCl (Oxycodone Hcl Ir 5 Mg Tab (Immediate Release)) 5 - 10 mg PO QID PRN PRN Reason: Pain Stop: 07/04/20 03:13 Pantoprazole Sodium (Pantoprazole 40 Mg Tab) 40 mg PO DAILY [facility] Stop: 07/20/20 08:59 Last Admin: 06/20/20 09:20 Dose: 40 mg Documented by:
--- NOTE | 2020-06-20 10:14 | Electrocardiogram Report ---
Test Reason : Blood Pressure : / mmHG Vent. Rate : 102 BPM Atrial Rate : 102 BPM P-R Int : 146 ms QRS Dur : 084 ms QT Int : 352 ms P-R-T Axes : 040 062 054 degrees QTc Int : 458 ms Sinus tachycardia with Premature atrial complexes Otherwise normal ECG When compared with ECG of 13-JUL-2019 06:50, Premature atrial complexes are now Present Confirmed by Uriel Martin [id number] on 06/20/2020 10:14:36 AM Referred By: REFERRED SELF Confirmed By:Uriel Martin
--- NOTE | 2020-06-20 10:28 | Cardiology Consultation ---
Date of Consultation June 20, 2020 Assessment & Plan (1) Chest pain: (2) CAD (coronary artery disease): (3) Nicotine dependence in remission: (4) Major depressive disorder: This admission is similar to the one 10 months ago. His cardiac markers are negative and his EKG shows no acute changes. I am going to order a resting echocardiogram. The one from the previous admission was normal. Believe the patient can have a diet. He has been placed back on appropriate medications. History of Present Illness Attending Physician: Marlo Hanna MD History of Present Illness This is a 60-year-old male patient with a history of major depression and a remote history of previous coronary stents placed in [place] when the patient was living there. More recently he has been diagnosed with prostate cancer and is receiving palliative treatment. For that reason, the patient has moved to the [facility] to live with his son. He has not been compliant with his medications. The patient was admitted with chest pain. Thus far his cardiac markers have been negative and his EKG is essentially normal. He had a similar type admission approximately 10 months ago and after cardiac markers were negative and his EKG as well as echocardiogram remain normal he then was then transferred to the mental health unit. He has no complaints this morning. Psychiatry will see him again this admission. Allergies Allergy/AdvReac Type Severity Reaction Status Date / Time No Known Allergies Allergy Verified 06/19/20 23:28 Home Medications Home Medications Medication Instructions Recorded Confirmed Type varenicline [Chantix] 1 mg PO BID 06/19/20 06/19/20 History Patient History Medical History Hypertension No significant family history Prostate cancer Surgical History No significant past surgical history Stented coronary artery Family History Unknown Cancer brother and father had cancer (type not known at this time) Other No pertinent family history in first degree relatives Social History Smoking Status: Former smoker Hx Alcohol Use: No Hx Substance Use: No Preferred Language: Upper Sorbian Communication Ability: Effective Cookie Padder Required: No Beliefs That Will Affect Care: None Current Living Situation: Alone Other Information That Helps Us Care for You: No Feels Safe at Home: Yes Safety Concerns: Feels Safe At This Time Assistive Devices: Glasses Review of Systems Review of Systems: All systems reviewed & are unremarkable except as noted in HPI & below Nothing additional to add. Physical Exam Physical Exam: General: no acute distress and stated age Head: normocephalic, no masses, lesions, tenderness or abnormalities Eyes: conjunctiva are pink and non-injected, sclera clear Neck: supple, no adenopathy, no bruits, normal jugular venous pulse, no hepatoj ugular reflux Chest: normal shape and normal respiratory effort Lungs: clear to auscultation and percussion Cardiac Exam: - regular rate & rhythm, no murmurs gallops or rubs - normal S1, normal S2 Pulses: 2(+) throughout Abdomen: abdomen soft, non-tender, no abnormal masses and no hepatosplenomegaly Musculoskeletal: no gait disturbance, no joint inflammation, no deforming arthritis Extremities: no edema and no cyanosis Neuro: grossly normal exam Results & Data ([facility]) Vital Signs (Past 12 Hours) Vital Signs Temp Pulse Pulse Resp BP BP Pulse Ox 06/20/20 07:16 36.9 C 58 L 19 130/77 95 06/20/20 03:41 64 06/20/20 03:00 36.4 C L 67 16 154/80 H 95 06/20/20 02:30 84 22 157/98 H 97 06/20/20 01:31 65 20 132/75 97 06/20/20 01:01 69 24 164/89 H 96 06/20/20 00:30 73 19 139/84 97 06/20/20 00:01 88 23 132/68 95 06/19/20 23:30 92 H 22 103/83 95 06/19/20 23:17 99 H 18 94 06/19/20 23:16 37.0 C 95 06/19/20 23:08 100 H 20 162/80 H 95 Laboratory Results Laboratory Results - last 24 hr 06/19/20 06/19/20 06/19/20 23:05 23:05 23:05 WBC 8.40 RBC 4.41 L Hgb 14.5 POC Hgb Hct 41.7 L POC Hct MCV 94.6 MCH 32.9 MCHC 34.8 RDW Std Deviation 47.2 H RDW Coeff of Steve 13.6 Plt Count 149 MPV 10.8 H Immature Gran % (Auto) 0.4 Neut % (Auto) 64.8 Lymph % (Auto) 25.8 [place] % (Auto) 7.1 Eos % (Auto) 1.3 Baso % (Auto) 0.6 Neut # (Auto) 5.44 Lymph # (Auto) 2.17 [place] # (Auto) 0.60 H Eos # (Auto) 0.11 Baso # (Auto) 0.05 Immature Gran # (Auto) 0.03 H PT 10.9 INR 1.0 APTT 24.8 PTT Ratio 0.9 POC Sodium Sodium 141 POC Potassium Potassium 4.0 POC Chloride Chloride 109 H Carbon Dioxide 23 POC Total CO2 Anion Gap 10.0 POC Anion Gap POC BUN BUN 14 Creatinine 1.10 POC Creatinine Est Cr Clr Drug Dosing Not Reportable Est GFR ( Amer) 83.5 Est GFR (Non-Af Amer) 72.1 BUN/Creatinine Ratio 13.1 Glucose 122 H POC Glucose (other) Estimat Average Glucose Hemoglobin A1c Calcium 8.8 POC Ioniz Calcium Gonzalo Magnesium Total Bilirubin 0.3 AST 26 ALT 28 Alkaline Phosphatase 139 H Troponin I < 0.015 Total Protein 7.1 Albumin 3.1 L Globulin 4.0 Albumin/Globulin Ratio 0.8 L Triglycerides Cholesterol LDL Cholesterol, Calc VLDL Cholesterol, Calc HDL Cholesterol Cholesterol/HDL Ratio Lipase 212 Stl C. diff Tox B Gene 06/19/20 06/19/20 06/20/20 23:05 23:15 01:21 WBC RBC Hgb POC Hgb 13.9 L Hct POC Hct 41 L MCV MCH MCHC RDW Std Deviation RDW Coeff of Steve Plt Count MPV Immature Gran % (Auto) Neut % (Auto) Lymph % (Auto) [place] % (Auto) Eos % (Auto) Baso % (Auto) Neut # (Auto) Lymph # (Auto) [place] # (Auto) Eos # (Auto) Baso # (Auto) Immature Gran # (Auto) PT INR APTT PTT Ratio POC Sodium 140 Sodium POC Potassium 4.1 Potassium POC Chloride 107 Chloride Carbon Dioxide POC Total CO2 23 L Anion Gap POC Anion Gap 15.0 L POC BUN 15 BUN Creatinine POC Creatinine 1.1 Est Cr Clr Drug Dosing Est GFR ( Amer) Est GFR (Non-Af Amer) BUN/Creatinine Ratio Glucose POC Glucose (other) 119 H Estimat Average Glucose 114 Hemoglobin A1c 5.6 Calcium POC Ioniz Calcium Gonzalo 1.15 Magnesium 1.9 Total Bilirubin AST ALT Alkaline Phosphatase Troponin I < 0.015 Total Protein Albumin Globulin Albumin/Globulin Ratio Triglycerides Cholesterol LDL Cholesterol, Calc VLDL Cholesterol, Calc HDL Cholesterol Cholesterol/HDL Ratio Lipase Stl C. diff Tox B Gene 06/20/20 06/20/20 06/20/20 07:58 07:58 08:30 WBC 7.89 RBC 4.30 L Hgb 14.0 POC Hgb Hct 41.7 L POC Hct MCV 97.0 MCH 32.6 MCHC 33.6 RDW Std Deviation 49.7 H RDW Coeff of Steve 14.1 Plt Count 126 L MPV 10.8 H Immature Gran % (Auto) 0.5 Neut % (Auto) 58.5 Lymph % (Auto) 27.6 [place] % (Auto) 10.4 Eos % (Auto) 2.4 Baso % (Auto) 0.6 Neut # (Auto) 4.61 Lymph # (Auto) 2.18 [place] # (Auto) 0.82 H Eos # (Auto) 0.19 Baso # (Auto) 0.05 Immature Gran # (Auto) 0.04 H PT INR APTT PTT Ratio POC Sodium Sodium 139 POC Potassium Potassium 3.8 POC Chloride Chloride 107 Carbon Dioxide 28 POC Total CO2 Anion Gap 4.0 POC Anion Gap POC BUN BUN 21 H Creatinine 0.83 POC Creatinine Est Cr Clr Drug Dosing 113.3 Est GFR ( Amer) 110.1 Est GFR (Non-Af Amer) 95.0 BUN/Creatinine Ratio 25.3 H Glucose 104 H POC Glucose (other) Estimat Average Glucose Hemoglobin A1c Calcium 8.8 POC Ioniz Calcium Gonzalo Magnesium Total Bilirubin AST ALT Alkaline Phosphatase Troponin I < 0.015 Total Protein Albumin Globulin Albumin/Globulin Ratio Triglycerides 455 H Cholesterol 242 H LDL Cholesterol, Calc VLDL Cholesterol, Calc HDL Cholesterol 33 Cholesterol/HDL Ratio 7 Lipase Stl C. diff Tox B Gene Negative Cdiff Gene Medications Administered Current Inpatient Medications Acetaminophen (Acetaminophen 325 Mg Tab) 650 mg PO Q4H PRN PRN Reason: Pain or Fever Stop: 07/20/20 03:13 Aspirin (Aspirin 81 Mg Ectab) 81 mg PO QAM [facility] Stop: 07/20/20 08:59 Last Admin: 06/20/20 09:19 Dose: 81 mg Documented by: Atorvastatin Calcium (Atorvastatin 20 Mg Tab) 20 mg PO [facility] Stop: 07/20/20 08:59 Last Admin: 06/20/20 09:19 Dose: 20 mg Documented by: Enoxaparin Sodium (Enoxaparin Inj 40 Mg/0.4 Ml Syr) 40 mg SQ [facility] Stop: 07/20/20 08:59 Last Admin: 06/20/20 09:20 Dose: Not Given Documented by: Promethazine HCl 12.5 mg/ (Sodium Chloride) 50.5 mls @ 202 mls/hr IV Q6H PRN PRN Reason: Nausea And Vomiting Stop: 07/20/20 03:13 Lorazepam (Ativan) 0.5 mg in 1 mls @ 1 mls/min IV Q4H PRN PRN Reason: Anxiety/Agitation Stop: 07/20/20 03:13 Isosorbide Mononitrate (Isosorbide [place] Extended Rel 30 Mg Tabcr) 30 mg PO [facility] Stop: 07/20/20 08:59 Last Admin: 06/20/20 09:20 Dose: 30 mg Documented by: Lidocaine (Lidocaine 5% 1 Patch) 1 patch TD [facility] Stop: 07/20/20 01:59 Last Admin: 06/20/20 02:13 Dose: 1 patch Documented by: Lisinopril (Lisinopril 10 Mg Tab) 10 mg PO [facility] Stop: 07/21/20 08:59 Metoprolol Tartrate (Metoprolol Tartrate 25 Mg Tab) 25 mg PO BID [facility] Stop: 07/20/20 20:59 Miscellaneous (Remove Lidoderm Patch) 1 ea N/A [facility] Stop: 07/20/20 13:59 Morphine Sulfate (Morphine Sulfate 4 Mg/Ml 1 Ml Carp\Vial) 4 mg IV Q4H PRN PRN Reason: Pain Stop: 07/04/20 03:13 Nitroglycerin (Nitroglycerin Sl 0.4 Mg/Tab Tab) 0.4 mg SL UD PRN PRN Reason: Chest Pain Stop: 07/20/20 03:13 Oxycodone HCl (Oxycodone Hcl Ir 5 Mg Tab (Immediate Release)) 5 - 10 mg PO QID PRN PRN Reason: Pain Stop: 07/04/20 03:13 Pantoprazole Sodium (Pantoprazole 40 Mg Tab) 40 mg PO DAILY [facility] Stop: 07/20/20 08:59 Last Admin: 06/20/20 09:20 Dose: 40 mg Documented by: (1) Major depressive disorder Major depression recurrence: recurrent Active/Remission status: currently active Major depression episode severity: moderate Qualified Code(s): F33.1 - Major depressive disorder, recurrent, moderate
[2020-06-20] MEDS ORDERED: FUROSEMIDE 40 MG TAB PO ONE (11:00)
[2020-06-20] MEDS ORDERED: BISMUTH SUBSALICYLATE 262 MG CHEW PO PRN (11:53)
[2020-06-20] MEDS: DULoxetine HCL 30 MG CAP PO SCH (14:22)
[2020-06-20] MEDS ORDERED: LOPERAMIDE HCL 2 MG CAP PO PRN (15:47)
[2020-06-20] MEDS ORDERED: LORazepam 0.5 MG TAB PO STA (17:50)
[2020-06-20] MEDS ORDERED: MELATONIN 3 MG TAB PO SCH (21:00)
[2020-06-20] MEDS ORDERED: METOPROLOL TARTRATE 25 MG TAB PO SCH (21:00)
[2020-06-20] MEDS: METOPROLOL TARTRATE 25 MG TAB PO SCH (21:14)
[2020-06-21] MEDS: ISOSORBIDE MONO EXTENDED REL 30 MG TABCR PO SCH (08:24)
[2020-06-21] MEDS: ASPIRIN 81 MG ECTAB PO SCH (08:24)
[2020-06-21] MEDS: ATORVASTATIN 20 MG TAB PO SCH (08:24)
[2020-06-21] MEDS: DULoxetine HCL 30 MG CAP PO SCH (08:24)
[2020-06-21] MEDS: PANTOprazole 40 MG TAB PO SCH (08:25)
[2020-06-21] MEDS: LIDOCAINE 5% 1 PATCH TD SCH (08:25)
[2020-06-21 08:28] LABS: Hematocrit (blood only) 44.2 % (42-52); Hemoglobin 14.9 g/dL (14.0-18.0); Mean Corpuscular Hemoglobin 32.1 pg (25-34); Mean Corpuscular Hgb Conc 33.7 g/dL (32-36); Mean Corpuscular Volume 95.3 fL (80-100); Mean Platelet Volume 11.1 fL (7.4-10.4); Platelet Count 144 K/uL (130-400); RDW Coefficient of Variation 13.9 % (11.5-14.5); RDW Standard Deviation 47.6 fL (36.4-46.3); Red Blood Count 4.64 M/uL (4.7-6.1); White Blood Count 8.45 K/uL (4.8-10.8)
[2020-06-21] MEDS: ENOXAPARIN INJ 40 MG/0.4 ML SYR SQ SCH (08:31)
[2020-06-21 08:59] LABS: BUN Creatinine Ratio 25.2 (10-20); Creatinine Clr Calc Pharmacy 111.2 ml/min; Est GFR (African American) 109.5; Est GFR (Non-African American) 94.5; Magnesium 1.9 mg/dl (1.8-2.4); Potassium 3.9 mmol/L (3.5-5.1)
[2020-06-21] MEDS ORDERED: lisinopril 10 MG TAB PO SCH (09:00)
--- NOTE | 2020-06-21 09:16 | Hospitalist Progress Note ---
Date of Service June 21, 2020 Assessment & Plan (1) Chest pain: Admitted for possible unstable angina hx CAD status post stent (about 15 years ago in [place] as per patient) History medication noncompliance Resumed patient's aspirin, beta-emir, MIRELLA inhibitor, nitro, statin medicatio ns. Patient counseled regarding importance of compliance with home medications. Troponin x3 - negative No ischemic changes noted on ecg TTE obtained -LV is normal in size. LV wall motion is normal. EF 55 to 60%. RV systolic function is normal. Left atrial size is normal. The right atrial size is normal. Aortic valve sclerosis moderate, without significant aortic valvular stenosis. Mild aortic regurg. Cardiology consult RE chest pain, history CAD Given negative cardiac markers and EKG, recommend to continue appropriate cardiac medications, which were re-started on admission Major depressive disorder - noncompliant with meds, Prozac prescription from psychiatrist Psychiatry consult while inpt Re: Depression, medication noncompliance Started patient on Cymbalta and melatonin - outpt follow up Loose stools -Patient reports history of IBS C. difficile negative Stool culture pending Back pain - per pt is chronic - start lidocaine patch - follow up w/ PCP Hypertension, at goal now hyperlipidemia, supposed to be on statin at home GERD, on home PPI prostate cancer status post radiation/hormonal therapy Hyperglycemia rule out DM, Check hemoglobin A1c 5.6%, follow up with PCP as outpt past alcohol abuse Ongoing tobacco abuse, Nicotine patch as needed Admission and Anticipated Discharge Date Admission Date: June 20, 2020 Subjective Patient is currently lying in bed, in no acute distress. Currently denies any chest pain or shortness of breath, dizziness or lightheadedness, palpitations. Was seen by psychiatry yesterday, will be started on Cymbalta, and melatonin. Patient was also seen by cardiology and echocardiogram was obtained yesterday. Recommend to continue his cardiac medications, no intervention needed at this time. Yesterday patient was complaining about frequent stools, C. difficile was negative. Now patient says that has resolved. Review of Systems Review of Systems: All systems reviewed & are unremarkable except as noted in HPI & below Constitutional: no fever and no chills Respiratory: no cough and no dyspnea Cardiovascular: no chest pain and no palpitations Gastrointestinal: no abdominal pain, no nausea and no vomiting Physical Exam Physical Exam: GENERAL: slightly anxious, obese male laying in bed, resting, in no respiratory distress HEENT: Alopecia, bespectacled, [place] palpebral conjunctivae, no ptosis, moist buccal mucosa NECK : Supple, short neck, no tenderness CHEST : CTA, no tenderness HEART : RRR, no obvious murmurs ABDOMEN: Some distention, nontender to palpation, soft, obese SKIN: Normal color, warm EXTREMITIES : No LE swelling/tenderness, moves extremities spontaneously NEUROLOGIC : alert and oriented x3, no facial asymmetry, speech fluent, moves extremities spontaneously Results & Data Results & Data ([facility]) Vital Signs (Past 12 Hours) Vital Signs Temp Pulse Pulse Pulse Resp BP Pulse Ox 06/21/20 07:57 49 L 06/21/20 07:06 36.5 C 50 L 19 104/62 98 06/21/20 04:00 36.5 C 50 L 18 105/63 94 06/21/20 01:39 54 L 06/21/20 00:02 36.5 C 56 L 18 117/68 94 Laboratory Results 06/21/20 06/21/20 06/20/20 Range/Units 08:14 08:14 08:30 WBC 8.45 (4.8-10.8) K/uL RBC 4.64 L (4.7-6.1) M/uL Hgb 14.9 (14.0-18.0) g/dL Hct 44.2 (42-52) % MCV 95.3 (80-100) fL MCH 32.1 (25-34) pg MCHC 33.7 (32-36) g/dL RDW Std Deviation 47.6 H (36.4-46.3) fL RDW Coeff of Steve 13.9 (11.5-14.5) % Plt Count 144 (130-400) K/uL MPV 11.1 H (7.4-10.4) fL Sodium 136 (136-145) mmol/L Potassium 3.9 (3.5-5.1) mmol/L Chloride 105 (98-107) mmol/L Carbon Dioxide 25 (21-32) mmol/L Anion Gap 6.0 (3-11) BUN 21 H (7-18) mg/dl Creatinine 0.84 (0.6-1.4) mg/dl Est Cr Clr Drug Dosing 111.2 ml/min Est GFR ( Amer) 109.5 Est GFR (Non-Af Amer) 94.5 BUN/Creatinine Ratio 25.2 H (10-20) Glucose 108 H (70-99) mg/dl Calcium 9.0 (8.5-10.1) mg/dl Magnesium 1.9 (1.8-2.4) mg/dl Stl C. diff Tox B Gene Negative Cdiff Gene (Neg) Medications Administered Current Inpatient Medications Acetaminophen (Acetaminophen 325 Mg Tab) 650 mg PO Q4H PRN PRN Reason: Pain or Fever Stop: 07/20/20 03:13 Aspirin (Aspirin 81 Mg Ectab) 81 mg PO [facility] Stop: 07/20/20 08:59 Last Admin: 06/21/20 08:24 Dose: 81 mg Documented by: Atorvastatin Calcium (Atorvastatin 20 Mg Tab) 20 mg PO [facility] Stop: 07/20/20 08:59 Last Admin: 06/21/20 08:24 Dose: 20 mg Documented by: Bismuth Subsalicylate (Bismuth Subsalicylate 262 Mg Chew) 1 tab PO Q6H PRN PRN Reason: Diarrhea Stop: 07/20/20 11:52 Last Admin: 06/20/20 13:19 Dose: 1 tab Documented by: Duloxetine HCl (Duloxetine Hcl 30 Mg Cap) 30 mg PO [facility] Stop: 07/20/20 12:44 Last Admin: 06/21/20 08:24 Dose: 30 mg Documented by: Enoxaparin Sodium (Enoxaparin Inj 40 Mg/0.4 Ml Syr) 40 mg SQ [facility] Stop: 07/20/20 08:59 Last Admin: 06/21/20 08:31 Dose: 40 mg Documented by: Promethazine HCl 12.5 mg/ (Sodium Chloride) 50.5 mls @ 202 mls/hr IV Q6H PRN PRN Reason: Nausea And Vomiting Stop: 07/20/20 03:13 Lorazepam (Ativan) 0.5 mg in 1 mls @ 1 mls/min IV Q4H PRN PRN Reason: Anxiety/Agitation Stop: 07/20/20 03:13 Isosorbide Mononitrate (Isosorbide [place] Extended Rel 30 Mg Tabcr) 30 mg PO [facility] Stop: 07/20/20 08:59 Last Admin: 06/21/20 08:24 Dose: 30 mg Documented by: Lidocaine (Lidocaine 5% 1 Patch) 1 patch TD QAM [facility] Stop: 07/20/20 01:59 Last Admin: 06/21/20 08:25 Dose: 1 patch Documented by: Lisinopril (Lisinopril 10 Mg Tab) 10 mg PO QAM [facility] Stop: 07/21/20 08:59 Last Admin: 06/21/20 08:25 Dose: 10 mg Documented by: Loperamide HCl (Loperamide Hcl 2 Mg Cap) 2 mg PO Q4H PRN PRN Reason: Diarrhea Stop: 07/20/20 15:46 Last Admin: 06/20/20 17:14 Dose: 2 mg Documented by: Melatonin (Melatonin 3 Mg Tab) 6 mg PO [facility] Stop: 07/20/20 20:59 Last Admin: 06/20/20 21:13 Dose: 6 mg Documented by: Metoprolol Tartrate (Metoprolol Tartrate 25 Mg Tab) 25 mg PO BID [facility] Stop: 07/20/20 20:59 Last Admin: 06/20/20 21:14 Dose: 25 mg Documented by: Miscellaneous (Remove Lidoderm Patch) 1 ea N/A [facility] Stop: 07/20/20 13:59 Last Admin: 06/20/20 14:22 Dose: 1 ea Documented by: Morphine Sulfate (Morphine Sulfate 4 Mg/Ml 1 Ml Carp\Vial) 4 mg IV Q4H PRN PRN Reason: Pain Stop: 07/04/20 03:13 Nitroglycerin (Nitroglycerin Sl 0.4 Mg/Tab Tab) 0.4 mg SL UD PRN PRN Reason: Chest Pain Stop: 07/20/20 03:13 Oxycodone HCl (Oxycodone Hcl Ir 5 Mg Tab (Immediate Release)) 5 - 10 mg PO QID PRN PRN Reason: Pain Stop: 07/04/20 03:13 Last Admin: 06/21/20 08:51 Dose: 5 mg Documented by: Pantoprazole Sodium (Pantoprazole 40 Mg Tab) 40 mg PO DAILY [facility] Stop: 07/20/20 08:59 Last Admin: 06/21/20 08:25 Dose: 40 mg Documented by:
[2020-06-21] MEDS: METOPROLOL TARTRATE 25 MG TAB PO SCH (10:24)
--- NOTE | 2020-06-21 12:30 | Discharge Summary ---
Date of Service June 21, 2020 Admission HPI Per Admitting Provider History obtained from patient and records. Medical history significant for CAD status post stent, hypertension, hyperlipidemia, GERD, mood disorder, prostate cancer status post radiation/hormonal therapy, chronic back pain, past alcohol abuse, ongoing tobacco abuse. Last confinement July, at the mental health unit for depression. Patient has not been taking cardiac and mood medications for a number of months now for unclear reasons. Patient was watching television last night when he experienced substernal heaviness going to the neck and jaw similar to heart attack in the past. No shortness of breath, no diaphoresis. Relief with aspirin and nitroglycerin administration. Patient also noted loose stools yesterday without abdominal pain. No recent antibiotic intake or no known sick contacts. Patient complaining of chronic low back pain. Depression is not okay as per patient but denies suicidality. Medical History as above Surgical History : Urologic procedures Family History : Heart disease Personal/Social history : Few cigarettes a day, past alcohol use, currently unemployed Admission Exam Per Admitting Provider GENERAL: Comfortable, slightly anxious, obese, no respiratory distress SKIN: Normal color, warm HEENT: Alopecia, bespectacled, [place] palpebral conjunctivae, no ptosis, moist buccal mucosa NECK : Supple, short neck, no tenderness CHEST : CTA, no tenderness HEART : RRR, no obvious murmurs ABDOMEN: Some distention, nontender EXTREMITIES : No LE swelling/tenderness, no other conspicuous deformities noted NEUROLOGIC : Coherent, no facial asymmetry, no other gross focality Principal Diagnosis Chest pain, noncardiac MDD Medication noncompliance Discharge Exam GENERAL: slightly anxious, obese male laying in bed, resting, in no respiratory distress HEENT: Alopecia, bespectacled, [place] palpebral conjunctivae, no ptosis, moist buccal mucosa NECK : Supple, short neck, no tenderness CHEST : CTA, no tenderness HEART : RRR, no obvious murmurs ABDOMEN: Some distention, nontender to palpation, soft, obese SKIN: Normal color, warm EXTREMITIES : No LE swelling/tenderness, moves extremities spontaneously NEUROLOGIC : alert and oriented x3, no facial asymmetry, speech fluent, moves extremities spontaneously Discharge Data Allergies Allergy/AdvReac Type Severity Reaction Status Date / Time No Known Allergies Allergy Verified 06/19/20 23:28 Consultations 06/20/20 00:27 ED Decision to Admit Stat 06/20/20 03:14 Consult Cardiology Routine Consult Psychiatry Routine Ordered Studies 06/19/20 23:11 CT angio chest dissec wo/w con Urgent IMPRESSION: 1. Unremarkable CTA of the chest. 2. No acute intrathoracic abnormality. 3. Hepatic steatosis with cirrhosis. Hospital Course (1) Chest pain: Noncardiac, now resolved Admitted for possible unstable angina hx CAD status post stent (about 15 years ago in [place] as per patient) History of medication noncompliance Resumed patient's aspirin, beta-emir, MIRELLA inhibitor, nitro, statin medications. Patient counseled regarding importance of compliance with home medications. Troponin x3 - negative No ischemic changes noted on ecg TTE obtained -LV is normal in size. LV wall motion is normal. EF 55 to 60%. RV systolic function is normal. Left atrial size is normal. The right atrial size is normal. Aortic valve sclerosis moderate, without significant aortic valvular stenosis. Mild aortic regurg. Cardiology consult RE chest pain, history CAD Given negative cardiac markers and EKG, recommend to continue appropriate cardiac medications, which were re-started on admission Major depressive disorder - noncompliant with meds, Prozac prescription from psychiatrist Psychiatry consult while inpt Re: Depression, medication noncompliance Started patient on Cymbalta and melatonin - outpt follow up Loose stools -Patient reports history of IBS C. difficile negative Stool culture pending Back pain - per pt is chronic - start lidocaine patch - follow up w/ PCP Hypertension, at goal now hyperlipidemia, supposed to be on statin at home GERD, on home PPI prostate cancer status post radiation/hormonal therapy Hyperglycemia rule out DM, Check hemoglobin A1c 5.6%, follow up with PCP as outpt past alcohol abuse Ongoing tobacco abuse, Nicotine patch as needed Total Time Total Time Spent Total Time Spent (In Minutes): 40 Total Time Includes: Examination of the Patient, Discharge Planning, Medication Reconciliation and Communication With Other Providers Discharge Plan Discharge Items Patient Disposition: Home - Self-Care Reason For Visit: chest pain Discharge Diagnosis: Chest pain, noncardiac MDD Medication noncompliance Condition on Discharge: Good Activity: Per Instructions section Non-emergency contact: Primary Care Provider Call non-emergency contact if: you have any medication questions and your symptoms worsen Follow-up/Referrals: Rush Bingham MD [Outside Practitioners] - (Date & Time 06/24/2020 10:00 AM Provider Rush Bingham MD Department [facility] ) Diet: Heart Healthy Addtl Attending Provider Instructions: Follow-up with your primary care provider, appointment was scheduled for you for June 24. Continue taking your medications for your heart and depression. Prescription was sent to your pharmacy. Psychiatry follow-up will be also arranged for you. Pending Studies at Discharge: No Stand-Alone Forms: My [facility], Smoking Cessation Medications and DC Order Prescriptions: New atorvastatin 20 mg Tablet 20 mg PO QAM 30 Days Qty: 30 RF: 0 isosorbide mononitrate 30 mg Tablet Extended Release 24 Hr 30 mg PO QAM 30 Days Qty: 30 RF: 0 lisinopril 10 mg Tablet 10 mg PO QAM 30 Days Qty: 30 RF: 0 metoprolol tartrate 25 mg Tablet 25 mg PO BID 30 Days Qty: 60 RF: 0 nitroglycerin [Nitrostat] 0.4 mg Tablet, Sublingual 0.4 mg sublingual UD PRN (Reason: chest pain) Qty: 7 RF: 0 aspirin 81 mg Tablet,Delayed Release (Dr/Ec) 81 mg PO QAM 30 Days Qty: 30 RF: 0 duloxetine 30 mg Capsule,Delayed Release(Dr/Ec) 30 mg PO QAM 30 Days Qty: 30 RF: 0 pantoprazole 40 mg Tablet,Delayed Release (Dr/Ec) 40 mg PO DAILY 30 Days Qty: 30 RF: 0 melatonin 3 mg Tablet 6 mg PO HS 30 Days Qty: 60 RF: 0 lidocaine 5 % Adhesive Patch,Medicated 1 patch transdermal QAM Qty: 15 RF: 0 acetaminophen 325 mg Tablet 650 mg PO Q4H PRN (Reason: pain) Qty: 30 RF: 0 loperamide 2 mg Capsule 2 mg PO Q4H PRN (Reason: loose stool) Qty: 7 RF: 0 Continued Chantix 1 mg tablet 1 mg PO BID RF: 0 Discharge Orders: Discharge Order (Routine); Ordered 06/21/20 Ordered By: Marlo Hanna Admission Data Admit Date/Time: 06/20/20 01:47 Attending Provider: Marlo Hanna Admit Provider: Kole Gipson Primary Care Provider: PCP,NO Other Providers: Kole Gipson ; Yaron Diop ; Kraig Deleon ; Enoch Moore ; Zaire Keys ; Naseem Lopez ; Alex Graves ; Sarita Hardy ; Enedelia Rowell ; Mitch Augustine ; Carlos Jin ; Yuliana Moore ; Miko Robertson ; Nolberto Gonzalez ; Jerman Leach ; Cayla Salinas ; Yaron Luna ; Leonarda Mccoy ; Bobbi Hobbs ; Pat Mas ; Naseem Velazquez I. ; Shoshana Botello ; Edith Lincoln ; Araseli Herndon
== END 2020-06-21 14:18 | disposition home or self-care (01) ==
LOC: 2S 22:59 → ED 22:59 → 2S 06-20 02:50

== ENCOUNTER 2022-01-29 22:00 | Inpatient (IN) ==
[2022-01-29] MEDS ORDERED: SODIUM CHLORIDE 0.9% 1000ML 1,000 ML IV SCH (22:30)
--- NOTE | 2022-01-29 22:40 | Emergency Department Note ---
History of Present Illness General Chief complaint: Fall Stated complaint: FALL 4 DAYS AGO now PAIN NECK DOWN THROUGH LEGS Time Seen by Provider: 01/29/22 22:20 Source: patient Mode of arrival: EMS Limitations: altered mental status History of Present Illness Provider complaint: Fall, headache, back pain Onset (ago): day(s) 4 Location: head and back Maximum Pain Intensity: 8 Treatments prior to arrival: none This is a 61-year-old male presents emergency department via EMS after concern for worsening headache and back pain following a fall. Patient states he recently fell down steps at home 4 days ago. Patient does not believe he uses any blood thinners. Patient does not recall if he lost consciousness. Patient is a poor historian. States he has had increased pain, dizziness, nausea. He states he does drink alcohol regularly. He doesn't remember how he fell. Pt seen during a time of high acuity and national emergency pandemic while wearing PPE. Home Medications Medication Instructions Recorded Confirmed Type varenicline 1 mg tablet (Chantix) 1 mg PO BID 06/19/20 05/15/21 History acetaminophen 325 mg tablet 650 mg PO Q4H PRN #30 tab 06/21/20 05/15/21 Rx loperamide 2 mg capsule 2 mg PO Q4H PRN #7 cap 06/21/20 05/15/21 Rx nitroglycerin 0.4 mg sublingual 0.4 mg SUBLINGUAL UD PRN #7 tab 06/21/20 05/15/21 Rx tablet (Nitrostat) Unknown B/P Med 1 tab PO DAILY 05/15/21 05/15/21 History albuterol sulfate 90 mcg/actuation 3 inh INHALATION Q6H #18 g 05/15/21 Rx aerosol inhaler cyclobenzaprine 5 mg tablet 5 - 10 mg PO Q8H PRN 05/15/21 05/15/21 History lidocaine 5 % topical patch 1 patch TRANSDERMAL QAM PRN 05/15/21 05/15/21 History prednisone 20 mg tablet 40 mg PO DAILY #10 tab 05/15/21 Rx cyclobenzaprine 10 mg tablet 10 mg PO Q8H PRN #15 tab 06/28/21 Rx lidocaine 5 % topical patch 1 patch TOPICAL DAILY #15 ea 06/28/21 Rx Allergies Allergy/AdvReac Type Severity Reaction Status Date / Time No Known Allergies Allergy Verified 08/15/20 21:44 Past Med/Surg History Medical History Hypertension No significant family history Prostate cancer Surgical History Stented coronary artery Family History Unknown Cancer brother and father had cancer (type not known at this time) Other No pertinent family history in first degree relatives Social History Smoking Status: Unknown if ever smoked Hx Alcohol Use: Yes Alcohol type: beer Hx Substance Use: No Preferred Language: Vietnamese Communication Ability: Effective Track Mechanic Required: No Beliefs That Will Affect Care: None Current Living Situation: Alone Feels Safe at Home: Declines to Answer Assistive Devices: None Review of Systems A total of 10 systems reviewed and were otherwise negative All systems reviewed & are unremarkable except as noted in HPI & below Physical Exam Vital Signs Vital Signs - 24 hr 01/30/22 01:35 01/30/22 01:46 01/30/22 01:50 Pulse Rate 134 H 96 H Pulse Rate [Apical] 125 H Pulse Rate from SpO2 Sensor 135 H 94 H Respiratory Rate 30 H 29 H 26 H Blood Pressure 127/100 Blood Pressure [Right Arm] 125/76 Blood Pressure Mean 109 Blood Pressure Mean [Right Arm] 92 Pulse Oximetry 98 97 100 Oxygen Delivery Method Room Air 01/30/22 02:00 01/30/22 02:01 01/30/22 02:03 Pulse Rate 97 H 95 H Pulse Rate [Apical] 96 H Pulse Rate from SpO2 Sensor 97 H 96 H Respiratory Rate 28 H 30 H 31 H Blood Pressure 123/65 Blood Pressure [Right Arm] 123/65 Blood Pressure Mean 84 Blood Pressure Mean [Right Arm] 84 Pulse Oximetry 98 98 98 Oxygen Delivery Method Room Air 01/30/22 02:10 01/30/22 02:17 01/30/22 02:20 Pulse Rate 94 H 96 H 96 H Pulse Rate [Apical] Pulse Rate from SpO2 Sensor 94 H 96 H Respiratory Rate 29 H 20 27 H Blood Pressure 57/38 L Blood Pressure [Right Arm] Blood Pressure Mean 44 Blood Pressure Mean [Right Arm] Pulse Oximetry 98 97 Oxygen Delivery Method 01/30/22 02:22 01/30/22 02:25 01/30/22 02:27 Pulse Rate 95 H 94 H 93 H Pulse Rate [Apical] Pulse Rate from SpO2 Sensor 95 H Respiratory Rate 24 29 H 24 Blood Pressure 69/30 L 108/60 Blood Pressure [Right Arm] Blood Pressure Mean 43 60 76 Blood Pressure Mean [Right Arm] Pulse Oximetry 97 Oxygen Delivery Method 01/30/22 02:30 01/30/22 02:34 01/30/22 02:40 Pulse Rate 92 H 94 H 94 H Pulse Rate [Apical] Pulse Rate from SpO2 Sensor 94 H 89 91 H Respiratory Rate 32 H 28 H 25 H Blood Pressure 83/52 L Blood Pressure [Right Arm] Blood Pressure Mean 62 Blood Pressure Mean [Right Arm] Pulse Oximetry 100 100 100 Oxygen Delivery Method 01/30/22 02:44 01/30/22 02:47 01/30/22 02:50 Pulse Rate 94 H 93 H 93 H Pulse Rate [Apical] Pulse Rate from SpO2 Sensor 94 H 97 H 94 H Respiratory Rate 31 H 19 31 H Blood Pressure 76/58 L 83/62 L Blood Pressure [Right Arm] Blood Pressure Mean 64 69 Blood Pressure Mean [Right Arm] Pulse Oximetry 97 94 99 Oxygen Delivery Method 01/30/22 02:53 Pulse Rate 93 H Pulse Rate [Apical] Pulse Rate from SpO2 Sensor 94 H Respiratory Rate 30 H Blood Pressure 99/74 L Blood Pressure [Right Arm] Blood Pressure Mean 82 Blood Pressure Mean [Right Arm] Pulse Oximetry 99 Oxygen Delivery Method GENERAL: alert, uncomfortable appearing, well nourished, no distress HEAD: nc/at, pizano signs, no raccoon eyes EYE EXAM: normal conjunctiva, PERRL and EOM's grossly intact OROPHARYNX: no exudate, no erythema, lips, buccal mucosa, and tongue normal and mucous membranes are moist NECK: supple, no nuchal rigidity, no adenopathy, non-tender LUNGS: Clear to auscultation. Normal chest wall mechanics, no w/r/r HEART: no murmurs, S1 normal and S2 normal ABDOMEN: abdomen soft, non-tender, normo-active bowel sounds, no masses, no rebound or guarding. PELVIS: Little compression, nontender with palpation BACK: Back is symmetrical on inspection and there is no deformity, no midline tenderness, no CVA tenderness. Ecchymosis noted to left lateral thoracic region inferior to the left scapula. SKIN: no rashes and no petechiae UPPER EXTREMITIES: upper extremities are grossly normal. FROM, nml pulses b/l. Ecchymosis noted to proximal left upper extremity, no obvious deformity. LOWER EXTREMITIES: No pitting edema. FROM, nml pulses b/l. Ecchymosis noted to lateral aspect of distal left lower extremity, no obvious deformity, no joint effusion. NEURO EXAM: Patient answers questions appropriately but is confused to chronology of events, cranial nerves II-XII grossly intact, normal speech, no gross weakness of arms, no gross weakness of legs. Gross sensation intact. Course Course 2254: I was notified by nursing staff patient tried to get up to the restroom and was noted to go into a.fib with RVR. 2322: Pt still disoriented but answering questions, follows commands. Still tachycardic. 0100: Pt still confused but follows commands. I did attempt to contact the son at [phone]. No answer and the mailbox was full. I was unable to leave a voice message. On tele pt now appears to be in atrial flutter. 0115: The son called back. We did discuss his father's current critical condition. He states patient first began becoming lightheaded, confused, and off balance 2 weeks ago. He states in the last 4 days it is gotten significantly worse. He does confirm he fell down the steps at home 4 days ago. He states approximately 2 to 3 weeks ago he was started on new medications. He states based on his recollection one was a medication for seizures although he states he has never had a prior seizure. He states on this for GERD and one was for depression. No prior history of kidney problems. He states he knows his liver numbers have been abnormal in the past and it was thought to be related to his ongoing alcohol abuse. He states he is a daily beer drinker. We did discuss CODE STATUS, he is full code at this time. I updated the hospitalist on this. I did offer to contact the ICU, the hospital states he will contact them himself. 0202: Now is NSR at 94. Patient still answering question. Nursing staff had to place another line as first line malfunctioned and had to be removed. I have asked for 2 IV's to be placed. Patient with brief hypotension but next BP back to normal. IVF bolus given. Ativan given to help with agitation. 0215: BP stable. ABG added. Administered Medications Discontinued Medications Fentanyl Citrate (Fentanyl Bolus From Bag) 50 mcg IV Q60M PRN PRN Reason: Pain or Agitation Stop: 02/13/22 03:54 Last Admin: 01/30/22 04:12 Dose: 50 mcg Documented by: [id number] Fentanyl Citrate (Fentanyl Citrate 2,500 Mcg/250 Ml Bag) Confirm Administered Dose 2,500 mcg IV .STK-MED ONE Stop: 01/30/22 03:59 Last Admin: 01/30/22 08:16 Dose: Not Given Documented by: [id number] Sodium Chloride (Nss 1000ml) 1,000 mls @ 125 mls/hr IV .Q8H [facility] Stop: 02/28/22 22:29 Last Admin: 01/29/22 22:48 Dose: 125 mls/hr Documented by: [id number] Diltiazem HCl 125 mg/ Dextrose 125 mls @ 5 mls/hr IV .Q24H [facility]; Protocol Stop: 02/28/22 23:14 Last Titration: 01/30/22 02:00 Dose: 0 mg/hr, 0 mls/hr Documented by: [id number] Cosigned by: [id number] Admin: 01/29/22 23:40 Dose: 5 mg/hr, 5 mls/hr Documented by: [id number] Cosigned by: [id number] Cefepime HCl (Maxipime) 2,000 mg in 20 mls @ 5 mls/min IV NOW STA; Protocol Stop: 01/29/22 23:59 Last Admin: 01/30/22 01:58 Dose: 5 mls/min Documented by: [id number] Multivitamins 10 ml/ Thiamine HCl 100 mg/ Folic Acid 1 mg/Sodium Chloride 1,011.2 mls @ 250 mls/hr IV .Q4H3M ONE Stop: 01/30/22 04:31 Last Infusion: 01/30/22 04:17 Dose: 0 mls/hr Documented by: [id number] Admin: 01/30/22 01:59 Dose: 250 mls/hr Documented by: [id number] Lorazepam 0.5 mg/ Syringe 0.5 mls @ 2 mls/min IV NOW STA Stop: 01/30/22 00:35 Last Admin: 01/30/22 01:23 Dose: 2 mls/min Documented by: [id number] Sodium Bicarbonate 150 meq/ (Dextrose) 1,150 mls @ 250 mls/hr IV .Q4H36M [facility] Stop: 03/01/22 02:14 Last Admin: 01/30/22 02:32 Dose: 150 mls/hr Documented by: [id number] Lorazepam 0.5 mg/ Syringe 0.5 mls @ 2 mls/min IV NOW STA Stop: 01/30/22 02:09 Last Admin: 01/30/22 02:32 Dose: 2 mls/min Documented by: [id number] Norepinephrine Bitartrate (Levophed/D5w) 4 mg in 250 mls @ 18.863 mls/hr IV .[id number] [facility]; Protocol Stop: 03/01/22 03:59 Last Titration: 01/30/22 05:27 Dose: 0.26 mcg/kg/min, 98.1 mls/hr Documented by: [id number] Titration: 01/30/22 05:20 Dose: 0.24 mcg/kg/min, 90.5 mls/hr Documented by: [id number] Titration: 01/30/22 05:07 Dose: 0.22 mcg/kg/min, 83 mls/hr Documented by: [id number] Titration: 01/30/22 04:39 Dose: 0.2 mcg/kg/min, 75.5 mls/hr Documented by: [id number] Titration: 01/30/22 04:35 Dose: 0.11 mcg/kg/min, 41.5 mls/hr Documented by: [id number] Titration: 01/30/22 04:19 Dose: 0.07 mcg/kg/min, 26.4 mls/hr Documented by: [id number] Admin: 01/30/22 03:59 Dose: 0.05 mcg/kg/min, 18.9 mls/hr Documented by: [id number] Cosigned by: [id number] Midazolam HCl (Versed) 125 mg in 250 mls @ 2 mls/hr IV .Q96H [facility]; Protocol Stop: 03/01/22 03:59 Last Titration: 01/30/22 09:23 Dose: 0 mg/hr, 0 mls/hr Documented by: [id number] Cosigned by: [id number] Admin: 01/30/22 04:30 Dose: 1 mg/hr, 2 mls/hr Documented by: [id number] Cosigned by: [id number] Fentanyl Citrate (Fentanyl Citrate) 2,500 mcg in 250 mls @ 5 mls/hr IV .Q50H [facility]; Protocol Stop: 02/13/22 03:59 Last Titration: 01/30/22 09:21 Dose: 0 mcg/hr, 0 mls/hr Documented by: [id number] Cosigned by: [id number] Titration: 01/30/22 04:20 Dose: 50 mcg/hr, 5 mls/hr Documented by: [id number] Cosigned by: [id number] Admin: 01/30/22 04:02 Dose: 25 mcg/hr, 2.5 mls/hr Documented by: [id number] Cosigned by: [id number] Vasopressin 20 units/ Sodium (Chloride) 101 mls @ 12.12 mls/hr IV .Q8H20M [facility] Stop: 03/01/22 05:44 Last Admin: 01/30/22 08:44 Dose: Not Given Documented by: [id number] Acetylcysteine 15,000 mg/ (Dextrose) 275 mls @ 275 mls/hr IV NOW ONE; Protocol Stop: 01/30/22 06:59 Last Admin: 01/30/22 06:40 Dose: 275 mls/hr Documented by: [id number] Piperacillin Sod/Tazobactam (Sod 3.375 gm/ Dextrose) 115 mls @ 230 mls/hr IV ONE ONE; Protocol Stop: 01/30/22 06:59 Last Admin: 01/30/22 06:55 Dose: 230 mls/hr Documented by: [id number] Lorazepam (Lorazepam 2 Mg/1 Ml Vial) Confirm Administered Dose 1 mg .ROUTE .STK- MED ONE Stop: 01/30/22 01:20 Last Admin: 01/30/22 01:24 Dose: Not Given Documented by: [id number] Lorazepam (Lorazepam 2 Mg/1 Ml Vial) Confirm Administered Dose 1 mg .ROUTE .STK- MED ONE Stop: 01/30/22 02:14 Last Admin: 01/30/22 08:16 Dose: Not Given Documented by: [id number] Miscellaneous (Rapid Sequence Induction Bag) Confirm Administered Dose 1 ea .ROUTE .STK-MED ONE Stop: 01/30/22 03:30 Last Admin: 01/30/22 08:16 Dose: Not Given Documented by: [id number] Norepinephrine Bitartrate (Norepinephrine/D5w 4 Mg/250 Ml) Confirm Administered Dose 4 mg IV .STK-MED ONE Stop: 01/30/22 03:39 Last Admin: 01/30/22 08:16 Dose: Not Given Documented by: [id number] Sodium Bicarbonate (Sodium Bicarb 8.4% Inj 50 Meq/50 Ml Syr) Confirm Administered Dose 100 meq IV .STK-MED ONE Stop: 01/30/22 03:11 Last Admin: 01/30/22 08:16 Dose: Not Given Documented by: [id number] Sodium Bicarbonate (Sodium Bicarbonate 8.4% Inj 50 Meq/50 Ml Vial) 100 meq IV ONCE ONE Stop: 01/30/22 03:22 Last Admin: 01/30/22 03:22 Dose: 100 meq Documented by: [id number] Sodium Bicarbonate (Sodium Bicarb 8.4% Inj 50 Meq/50 Ml Syr) Confirm Administered Dose 50 meq IV .STK-MED ONE Stop: 01/30/22 03:40 Last Admin: 01/30/22 03:57 Dose: 50 meq Documented by: [id number] Sodium Bicarbonate (Sodium Bicarb 8.4% Inj 50 Meq/50 Ml Syr) 50 meq IV NOW STA Stop: 01/30/22 06:23 Last Admin: 01/30/22 06:57 Dose: 50 meq Documented by: [id number] Sodium Bicarbonate (Sodium Bicarb 8.4% Inj 50 Meq/50 Ml Syr) 50 meq IV NOW STA Stop: 01/30/22 06:24 Last Admin: 01/30/22 08:45 Dose: Not Given Documented by: [id number] Sodium Bicarbonate (Sodium Bicarb 8.4% Inj 50 Meq/50 Ml Syr) 50 meq IV NOW STA Stop: 01/30/22 06:24 Last Admin: 01/30/22 06:57 Dose: 50 meq Documented by: [id number] Sodium Bicarbonate (Sodium Bicarb 8.4% Inj 50 Meq/50 Ml Syr) Confirm Administered Dose 150 meq IV .STK-MED ONE Stop: 01/30/22 06:29 Last Admin: 01/30/22 08:45 Dose: Not Given Documented by: [id number] Critical Care Time Critical Care Time: Yes Total Critical Care Time: 65 Critical care of 65 min performed to assess and manage high likelihood of life- threatening LOLI and liver failure, involving labs and imaging performed with assessment to evaluate trauma, LOLI, liver failure, AMS diagnosis with frequent reassessment. This time includes bedside time, treatment discussions with pa tient/family/consultants, documentation time and excludes procedure time. Medical Decision Making Differential Diagnosis Differential diagnoses include major intracranial, cervical, spinal, thoracic, abdominal, pelvic and neurologic injury. Fracture, contusion, sprain, strain, laceration, abrasions included as well. Medical Records Attestation: I reviewed the patient's medical records. Home Medications Current Medication List: was personally reviewed by id Laboratory Data Attestation: I reviewed the patient's lab results. Result diagrams: 01/29/22 22:15 01/30/22 06:56 Lab Results 01/29/22 01/29/22 01/29/22 Range/Units 22:15 22:15 22:15 WBC 18.02 H (4.8-10.8) K/uL RBC 3.44 L (4.7-6.1) M/uL Hgb 12.1 L (14.0-18.0) g/dL POC Hgb (14.0-18.0) g/dl Hct 36.7 L (42-52) % POC Hct (42-52) % MCV 106.7 H (80-100) fL MCH 35.2 H (25-34) pg MCHC 33.0 (32-36) g/dL RDW Std Deviation 58.7 H (36.4-46.3) fL RDW Coeff of Steve 15.4 H (11.5-14.5) % Plt Count 167 (130-400) K/uL MPV 11.5 H (7.4-10.4) fL Immature Gran % (Auto) 2.6 % Neut % (Auto) 68.6 % Lymph % (Auto) 9.4 % [place] % (Auto) 18.9 % Eos % (Auto) 0.3 % Baso % (Auto) 0.2 % Neut # (Auto) 12.38 H (1.4-6.5) K/uL Lymph # (Auto) 1.69 (1.2-3.4) K/uL [place] # (Auto) 3.40 H (0.11-0.59) K/uL Eos # (Auto) 0.05 (0-0.5) K/uL Baso # (Auto) 0.04 (0-0.2) K/uL Immature Gran # (Auto) 0.46 H (0.00-0.02) K/uL Absolute Nucleated RBC 0.07 H (0-0) K/uL Nucleated RBC % (auto) 0.4 % Toxic Vacuolation 2+ Echinocytes 1+ PT 16.6 H (9.0-12.0) Seconds INR 1.6 H (0.9-1.1) POC Sodium (135-144) mmol/L Sodium 122 L (136-145) mmol/L POC Potassium (3.3-5.0) mmol/L Potassium 4.3 (3.5-5.1) mmol/L POC Chloride (101-112) mmol/L Chloride 81 L (98-107) mmol/L Carbon Dioxide 6 L* (21-32) mmol/L POC Total CO2 (24-31) mmol/L Anion Gap 35 H (3-11) POC Anion Gap (16-25) mmol/L POC BUN (7-18) mg/dl BUN 23 (6-23) mg/dl Creatinine 3.18 H (0.6-1.4) mg/dl POC Creatinine (0.6-1.3) mg/dl Est Cr Clr Drug Dosing 27.2 ml/min Est GFR ( Amer) 23.0 ml/min Est GFR (Non-Af Amer) 19.8 ml/min BUN/Creatinine Ratio 7.2 L (10-20) Glucose 66 L (70-99(Fasting)) mg/dl POC Glucose (other) (70-99) mg/dl Calcium 9.1 (8.5-10.1) mg/dl POC Ioniz Calcium Gonzalo (1.12-1.32) mmol/l Magnesium 2.4 (1.7-2.4) mg/dl Total Bilirubin 6.3 H (0.2-1.0) mg/dl AST 1048 H (13-39) U/L ALT 310 H (7-52) U/L Alkaline Phosphatase 254 H (34-104) U/L Ammonia (18-72) umol/L Troponin I High Sens 108.2 H* (0-20) pg/ml Total Protein 6.9 (6.0-8.3) gm/dl Albumin 3.2 L (3.4-5.0) gm/dl Globulin 3.7 (2.5-4.0) gm/dl Albumin/Globulin Ratio 0.9 (0.9-2) Procalcitonin (0-0.5) ng/ml TSH (0.300-4.500) uIu/ml Ethyl Alcohol mg/dL (<10.0) mg/dl SARS-CoV-2, RNA, NAAT (NEGATIVE) 01/29/22 01/29/22 01/29/22 Range/Units 22:15 22:53 22:57 WBC (4.8-10.8) K/uL RBC (4.7-6.1) M/uL Hgb (14.0-18.0) g/dL POC Hgb 14.3 (14.0-18.0) g/dl Hct (42-52) % POC Hct 42 (42-52) % MCV (80-100) fL MCH (25-34) pg MCHC (32-36) g/dL RDW Std Deviation (36.4-46.3) fL RDW Coeff of Steve (11.5-14.5) % Plt Count (130-400) K/uL MPV (7.4-10.4) fL Immature Gran % (Auto) % Neut % (Auto) % Lymph % (Auto) % [place] % (Auto) % Eos % (Auto) % Baso % (Auto) % Neut # (Auto) (1.4-6.5) K/uL Lymph # (Auto) (1.2-3.4) K/uL [place] # (Auto) (0.11-0.59) K/uL Eos # (Auto) (0-0.5) K/uL Baso # (Auto) (0-0.2) K/uL Immature Gran # (Auto) (0.00-0.02) K/uL Absolute Nucleated RBC (0-0) K/uL Nucleated RBC % (auto) % Toxic Vacuolation Echinocytes PT (9.0-12.0) Seconds INR (0.9-1.1) POC Sodium 122 L (135-144) mmol/L Sodium (136-145) mmol/L POC Potassium 4.3 (3.3-5.0) mmol/L Potassium (3.5-5.1) mmol/L POC Chloride 90 L (101-112) mmol/L Chloride (98-107) mmol/L Carbon Dioxide (21-32) mmol/L POC Total CO2 9 L* (24-31) mmol/L Anion Gap (3-11) POC Anion Gap 28.0 H (16-25) mmol/L POC BUN 22 H (7-18) mg/dl BUN (6-23) mg/dl Creatinine (0.6-1.4) mg/dl POC Creatinine 3.7 H (0.6-1.3) mg/dl Est Cr Clr Drug Dosing ml/min Est GFR ( Amer) ml/min Est GFR (Non-Af Amer) ml/min BUN/Creatinine Ratio (10-20) Glucose (70-99(Fasting)) mg/dl POC Glucose (other) 66 L* (70-99) mg/dl Calcium (8.5-10.1) mg/dl POC Ioniz Calcium Gonzalo 0.94 L (1.12-1.32) mmol/l Magnesium (1.7-2.4) mg/dl Total Bilirubin (0.2-1.0) mg/dl AST (13-39) U/L ALT (7-52) U/L Alkaline Phosphatase (34-104) U/L Ammonia (18-72) umol/L Troponin I High Sens (0-20) pg/ml Total Protein (6.0-8.3) gm/dl Albumin (3.4-5.0) gm/dl Globulin (2.5-4.0) gm/dl Albumin/Globulin Ratio (0.9-2) Procalcitonin (0-0.5) ng/ml TSH 0.779 (0.300-4.500) uIu/ml Ethyl Alcohol mg/dL 18.6 H (<10.0) mg/dl SARS-CoV-2, RNA, NAAT (NEGATIVE) 01/29/22 01/30/22 01/30/22 Range/Units 23:44 00:28 00:28 WBC (4.8-10.8) K/uL RBC (4.7-6.1) M/uL Hgb (14.0-18.0) g/dL POC Hgb (14.0-18.0) g/dl Hct (42-52) % POC Hct (42-52) % MCV (80-100) fL MCH (25-34) pg MCHC (32-36) g/dL RDW Std Deviation (36.4-46.3) fL RDW Coeff of Steve (11.5-14.5) % Plt Count (130-400) K/uL MPV (7.4-10.4) fL Immature Gran % (Auto) % Neut % (Auto) % Lymph % (Auto) % [place] % (Auto) % Eos % (Auto) % Baso % (Auto) % Neut # (Auto) (1.4-6.5) K/uL Lymph # (Auto) (1.2-3.4) K/uL [place] # (Auto) (0.11-0.59) K/uL Eos # (Auto) (0-0.5) K/uL Baso # (Auto) (0-0.2) K/uL Immature Gran # (Auto) (0.00-0.02) K/uL Absolute Nucleated RBC (0-0) K/uL Nucleated RBC % (auto) % Toxic Vacuolation Echinocytes PT (9.0-12.0) Seconds INR (0.9-1.1) POC Sodium (135-144) mmol/L Sodium (136-145) mmol/L POC Potassium (3.3-5.0) mmol/L Potassium (3.5-5.1) mmol/L POC Chloride (101-112) mmol/L Chloride (98-107) mmol/L Carbon Dioxide (21-32) mmol/L POC Total CO2 (24-31) mmol/L Anion Gap (3-11) POC Anion Gap (16-25) mmol/L POC BUN (7-18) mg/dl BUN (6-23) mg/dl Creatinine (0.6-1.4) mg/dl POC Creatinine (0.6-1.3) mg/dl Est Cr Clr Drug Dosing ml/min Est GFR ( Amer) ml/min Est GFR (Non-Af Amer) ml/min BUN/Creatinine Ratio (10-20) Glucose (70-99(Fasting)) mg/dl POC Glucose (other) (70-99) mg/dl Calcium (8.5-10.1) mg/dl POC Ioniz Calcium Gonzalo (1.12-1.32) mmol/l Magnesium (1.7-2.4) mg/dl Total Bilirubin (0.2-1.0) mg/dl AST (13-39) U/L ALT (7-52) U/L Alkaline Phosphatase (34-104) U/L Ammonia 135.0 H (18-72) umol/L Troponin I High Sens (0-20) pg/ml Total Protein (6.0-8.3) gm/dl Albumin (3.4-5.0) gm/dl Globulin (2.5-4.0) gm/dl Albumin/Globulin Ratio (0.9-2) Procalcitonin 2.17 H (0-0.5) ng/ml TSH (0.300-4.500) uIu/ml Ethyl Alcohol mg/dL (<10.0) mg/dl SARS-CoV-2, RNA, NAAT NEGATIVE (NEGATIVE) Imaging Data My Impression: X-ray left humerus: No acute fracture or dislocation X-ray left tib-fib: No acute fracture or dislocation Radiologist's Impression: CT head: No acute intracranial abnormality. Radiologist: Davi Ochoa MD CT C-spine: No acute fracture or malalignment. Radiologist: Davi Ochoa MD CT chest without contrast: Lungs are clear. No pleural effusion or pneumothorax. No acute fracture. Coronary artery calcifications. No pericardial effusion. Hepatic steatosis. Radiologist: Davi Ochoa MD CT abdomen pelvis without contrast: Comparison: None. Mild bilateral lower lobe atelectasis. Normal cardiac size of coronary artery calcifications. Diffuse fatty liver. Unremarkable gallbladder and biliary system. Normal spleen. Normal bilateral kidneys. Mild bilateral adrenal hypertrophy. Normal pancreas. Unremarkable stomach. Borderline thickening of the wall throughout the colon which may indicate mild colitis. Diverticulosis with no signs of diverticulitis. Unremarkable small bowel with no bowel obstruction. Nonvisualized appendix with no inflammation to suggest appendicitis. Decompressed urinary bladder. Remainder of the pelvic structures unremarkable. Degenerative disease of the spine. Atherosclerotic disease aorta with no aneurysm. Radiologist: Beth Beatty MD CT T-spine: Diffuse osteopenia with multilevel degenerative disease of thoracic spine. No acute fracture or subluxation. No scoliosis. Normal kyphosis. Radiologist: Beth Beatty MD ECG Data Attestation: I personally reviewed and interpreted this ECG as follows: Indication: + tachycardia Rate (beats per minute): 154 Rhythm: + atrial fibrillation ECG Intervals/blocks: + Normal QRS and + Normal QT ECG [place]: + Normal ECG ST segments: + Nonspecific ST abnormalities MDM Narrative An order was placed for continuous cardiac monitoring. The monitor shows a rate of _104_ with _sinus tachycardia_ rhythm. This is a 61-year-old male who presents due to concern for a fall 4 days ago. Patient admits to history of alcohol abuse but states he is uncertain why he fell. Patient complains of bruises that were seen on exam to his left upper extremity and left lower extremity. Patient complained of increased head, neck, and back pain. Initially a [id number] Chem-8 drawn in order to send the patient down for CT imaging due to concern for occult trauma. Patient did appear clinically dehydrated. Patient was initially in a sinus tachycardia but otherwise hemodynamically stable. Patient found to have acute kidney injury and scans changed to noncontrast. X-ray is reassuring. While awaiting CTs, patient changed to A. fib with RVR. Cardizem drip started without bolus due to concern for clinical dehydration and risk of hypotension. Patient's rate did slowly begin to improve. Additional labs began to result revealing liver failure in addition to kidney failure. Patient was noted to be mildly tachypneic, although given abnormal labs, I suspect this was compensatory for his underlying metaboli c acidosis. Patient found to have significant leukocytosis, blood cultures added as well as procalcitonin. IV antibiotics given. Patient was difficult to obtain lab work from. We had difficulty maintaining and securing peripheral IVs. Patient given small dose of Ativan due to concern for risk of evolving alcohol withdrawal symptoms. Patient did spontaneously convert from A. fib to a flutter and then to normal sinus rhythm and Cardizem was stopped. IV fluids were continued, banana bag continued, and bicarb drip had been added. CTs did not reveal any occult traumatic injury. I discussed the case with the hospitalist. They wish to evaluate the patient and contact the ICU themselves. Patient was given IV fluid bolus after 1 episode of hypotension. I added an ammonia which also was elevated. I was able to eventually call and update the son on the patient's critical condition and my concerns. We did discuss CODE STATUS, as well as potential complications from his current condition. RT did have difficulty obtaining ABG. 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 Son was concerned for occult substance abuse as patient did have a prior history of drug use. Son did not know and his father to use any drugs more recently and stated he was not taking any current medications although he had started new meds approximately 2 weeks ago. The son was still looking for these medications when I spoke with him on the phone as he did not have an immediate list and could not find them when we spoke. I feel acute hepatic failure or renal failure from ingestion is less likely at this time. I suspect patient with acute liver failure secondary to alcohol abuse and accompanying dehydration leading to acute kidney injury and hepatic encephalopathy. Troponin was also noted to be elevated although patient had no complaints of chest pain or shortness of breath. Impression & Plan CHI (closed head injury), Alcohol abuse, Acute hepatic failure, Hyponatremia, LOLI (acute kidney injury), Elevated troponin, Encephalopathy, Fall, Atrial fibrillation, Metabolic acidosis Discharge Plan Visit Data Chief Complaint: Fall Stated Complaint: FALL 4 DAYS AGO now PAIN NECK DOWN THROUGH LEGS ED Provider: Aileen Strickland Discharge Problem: CHI (closed head injury), Alcohol abuse, Acute hepatic failure, Hyponatremia, LOLI (acute kidney injury), Elevated troponin, Encephalopathy, Fall, Atrial fibrillation, Metabolic acidosis Patient Disposition: Admitted As Inpatient Condition: Critical Discharge Instructions Interventions: ED Discharge Assessment Last Done: 01/30/22 06:01 Discharge Problem: CHI (closed head injury) Qualifiers: Encounter type: initial encounter Qualified Code(s): S09.90XA - Unspecified injury of head, initial encounter Acute hepatic failure Qualifiers: Hepatic coma status: without hepatic coma Qualified Code(s): K72.00 - Acute and subacute hepatic failure without coma Fall Qualifiers: Encounter type: initial encounter Qualified Code(s): W19.XXXA - Unspecified fall, initial encounter Atrial fibrillation Qualifiers: Atrial fibrillation type: unspecified Qualified Code(s): I48.91 - Unspecified atrial fibrillation
[2022-01-29 22:50] LABS: Hematocrit (blood only) 36.7 % (42-52); Hemoglobin 12.1 g/dL (14.0-18.0); Mean Corpuscular Hemoglobin 35.2 pg (25-34); Mean Corpuscular Volume 106.7 fL (80-100); Mean Platelet Volume 11.5 fL (7.4-10.4); Nucleated RBC # (auto) 0.07 K/uL (0-0); Nucleated RBC % (auto) 0.4 %; Platelet Count 167 K/uL (130-400); RDW Coefficient of Variation 15.4 % (11.5-14.5); RDW Standard Deviation 58.7 fL (36.4-46.3); Red Blood Count 3.44 M/uL (4.7-6.1); White Blood Count 18.02 K/uL (4.8-10.8)
[2022-01-29 23:08] LABS: Basophils # (auto) 0.04 K/uL (0-0.2); Basophils % (auto) 0.2 %; Echinocytes 1+; Eosinophils # (auto) 0.05 K/uL (0-0.5); Eosinophils % (auto) 0.3 %; INR 1.6 (0.9-1.1); Immature Granulocytes # (auto) 0.46 K/uL (0.00-0.02); Immature Granulocytes % (auto) 2.6 %; Lymphocytes # (auto) 1.69 K/uL (1.2-3.4); Lymphocytes % (auto) 9.4 %; Monocytes % (auto) 18.9 %; Neutrophils # (auto) 12.38 K/uL (1.4-6.5); Neutrophils % (auto) 68.6 %; Prothrombin Time 16.6 Seconds (9.0-12.0); Toxic Vacuolation 2+
[2022-01-29 23:10] LABS: iSTAT Creatinine 3.7 mg/dl (0.6-1.3); iSTAT Hemoglobin 14.3 g/dl (14.0-18.0); iSTAT Ionized Calcium 0.94 mmol/l (1.12-1.32); iSTAT Potassium 4.3 mmol/L (3.3-5.0)
[2022-01-29] MEDS ORDERED: STAT IV Infusion **Titration per Protocol STA (23:14)
[2022-01-29] MEDS ORDERED: dilTIAZem HCL 125 MG in DEXTROSE 5% 100 ML IV SCH (23:15)
[2022-01-29 23:34] LABS: Troponin I High Sensitivity 108.2 pg/ml (0-20)
[2022-01-29 23:35] LABS: Albumin Globulin Ratio 0.9 (0.9-2); Albumin Level 3.2 gm/dl (3.4-5.0); BUN Creatinine Ratio 7.2 (10-20); Bilirubin,Total 6.3 mg/dl (0.2-1.0); Calcium 9.1 mg/dl (8.5-10.1); Creatinine Clr Calc Pharmacy 27.2 ml/min; Est GFR (Non-African American) 19.8 ml/min; Globulin 3.7 gm/dl (2.5-4.0); Magnesium 2.4 mg/dl (1.7-2.4); Potassium 4.3 mmol/L (3.5-5.1); Total Protein 6.9 gm/dl (6.0-8.3)
[2022-01-29] MEDS ORDERED: CEFEPIME 2,000 MG/20 ML VIAL IV STA (23:56)
[2022-01-30] MEDS ORDERED: MULTI-VITAMIN INFUSION 10 ML, THIAMINE HCL 100 MG, FOLIC ACID 1 MG in SODIUM CHLORIDE 0... IV ONE (00:29)
[2022-01-30] MEDS ORDERED: LORazepam 0.5 MG in SYRINGE 0.25 ML IV STA ×2 (00:34→02:08)
[2022-01-30] MEDS ORDERED: LORazepam 2 MG/1 ML VIAL ONE ×2 (01:19→02:13)
[2022-01-30] MEDS ORDERED: STAT IV STA ×2 (02:01→07:45)
[2022-01-30] MEDS ORDERED: SODIUM BICARBONATE 8.4% 150 MEQ in DEXTROSE 5% 1,000 ML IV SCH ×2 (02:15→06:45)
[2022-01-30] MEDS ORDERED: SODIUM BICARB 8.4% INJ 50 MEQ/50 ML SYR IV ONE ×3 (03:10→06:28)
[2022-01-30 03:17] LABS: iSTAT Arterial Blood Gas HCO3 4 meg/L (19-24); iSTAT Arterial Blood Gas pCO2 17 mmHg (35-46); iSTAT Arterial Blood Gas pH 6.93 (7.35-7.45); iSTAT Arterial Blood Gas pO2 117 mmHg (80-95); iSTAT Carbon Dioxide < 5 mmol/L (24-31); iSTAT Hematocrit 37 % (42-52); iSTAT Hemoglobin 12.6 g/dl (14.0-18.0); iSTAT Potassium 4.4 mmol/L (3.3-5.0); iSTAT Sodium 121 mmol/L (135-144)
[2022-01-30] MEDS ORDERED: SODIUM BICARBONATE 8.4% INJ 50 MEQ/50 ML VIAL IV ONE (03:21)
[2022-01-30] MEDS ORDERED: RAPID SEQUENCE INDUCTION BAG ONE (03:29)
[2022-01-30] MEDS ORDERED: NOREPINEPHRINE/D5W 4 MG/250 ML IV ONE (03:38)
[2022-01-30] MEDS ORDERED: STAT IV Infusion **Titration per Protocol STA ×2 (03:55→05:33)
[2022-01-30] MEDS ORDERED: MIDAZOLAM BOLUS FROM BAG IV PRN (03:55)
[2022-01-30] MEDS ORDERED: fentaNYL citrate 2,500 MCG/250 ML BAG IV ONE (03:58)
[2022-01-30] MEDS ORDERED: NOREPINEPHRINE/D5W 4 MG/250 ML PLCT IV SCH (04:00)
[2022-01-30] MEDS ORDERED: MIDAZOLAM HCL 125 MG/250 ML BAG IV SCH (04:00)
[2022-01-30] MEDS ORDERED: fentaNYL citrate 2,500 MCG/250 ML BAG IV SCH (04:00)
--- NOTE | 2022-01-30 04:01 | Emergency Department Note ---
ED Visit Note This case was signed out to me at change of shift awaiting admission to the ICU. The patient had worsening overall status of his condition. His pH was noted to be 6.9. He was having multisystem organ failure. I discussed the case with the critical care team and they requested endotracheal intubation for the patient. Endotracheal Intubation Indication: severe metabolic acidosis The patient was on 100% oxygen via [id number] prior to the procedure. Suction, airway equipment, RSI drugs, respiratory equipment, and appropriate personnel were prepared prior to the initiation of the procedure. A time out was taken. Induction was performed with etomidate and succinylcholine. After observing the clinical benefit of the medications, the airway was easily visualized utilizing a glide scope. A 1.5 size ETT tube was placed atraumatically to 23 cm using standard technique. The cuff inflated without signs of malfunction. There were bilateral breath sounds, positive colormetric change, no gastric sounds, and post procedure pulse oximetry was 100%. There were no complications. A post intubation x-ray will be obtained. .
--- NOTE | 2022-01-30 05:22 | Procedure Note ---
Procedure Note Date of Service January 30, 2022 Note ARTERIAL LINE PROCEDURE NOTE: Procedure: Arterial Line Placement Attending: Dr. Cope Provider: DEVAN Vargas Indication: Monitoring on Pressors Anesthesia: None Line placed emergently following intubation and hypotension requiring vasopressor support. A time-out was completed verifying correct patient, procedure, site, positioning, and implant(s) or special equipment if applicable. Allens test was performed to ensure adequate perfusion. Patients left wrist was prepped and draped in the usual sterile fashion. Ultrasound guidance was used to aid needle placement. A 20g Arrow arterial line was introduced into the left radial artery. Catheter was threaded, and the needle was removed with appropriate blood return. Good waveform was observed. The patient tolerated the procedure well. Confirmation of placement with ultrasound. Blood Loss: Minimal Complications: None Procedural Ultrasound Guidance: Procedure Date: 01/30/2022 Indication: Arterial line insertion Attending: Dr. Cope Provider: DEVAN Vargas Artery Identified: YES Line confirmed in Artery with ultrasound: Yes Complications: NONE Patient tolerated procedure: WELL Coding CPT Codes Tubes, Drains, and Vasc Access - Tubes, Drains, and Vasc Access: [id number] Place Catheter In Artery ([id number]) Tubes, Drains, and Vasc Access - Tubes, Drains, and Vasc Access: [id number] Ultrasound Guidance For Vascular ([id number]) [facility] [place] Codes (Charges) Tubes, Drains, and Vasc Access Procedure 1: Tubes, Drains, and Vasc Access: [id number] Place Catheter In Artery Procedure 2: Tubes, Drains, and Vasc Access: [id number] Ultrasound Guidance For Vascular
--- NOTE | 2022-01-30 05:24 | Procedure Note ---
Procedure Note Date of Service January 30, 2022 Note INTERNAL JUGULAR CENTRAL LINE PROCEDURE NOTE: Procedure: Internal Jugular Central Line Placement Attending: Dr. Cope Provider: DEVAN Vargas Indication: Central Drug Administration, Poor Venous Access, Multiple Lab Draws Necessary, etc. Anesthesia: Lidocaine 1% Line placed emergently following intubation and hypotension requiring vasopressor support. A time-out was completed verifying correct patient, procedure, site, pos itioning, and implants(s) or special equipment if applicable. Patients left neck was cleansed and draped in the typical sterile fashion using Chloraprep. The Internal Jugular Vein and Carotid Artery were identified using ultrasound. The superficial tissue was anesthetized using 3 mL of 1% lidocaine without epinephrine under direct visualization with the ultrasound. After adequate anesthetization was achieved, the Internal Jugular vein was cannulated under direct ultrasound guidance using an introducer needle on a syringe. Good venous blood return was maintained prior to removal of syringe from introducer needle. Using Seldinger Technique, a guide wire was advanced through the introducer needle without resistance. The introducer needle was removed and ultrasound images were obtained of the guide wire within the Internal Jugular Vein and saved to the patients medical record. A small incision was made in penetrating fashion at the guide wire insertion site utilizing an 11 blade scalpel. The dilator was advanced to the vessel without resistance. The dilator was exchanged for the triple lumen catheter which was advanced into the vessel without resistance. The guide wire was removed intact from the catheter without issue. Claves were placed on each catheter tip with confirmation of good blood flow from each lumen. Each port was easily flushed with sterile saline. The catheter was placed at 17 cm and sutured in place. BioPatch was applied to the catheter and a sterile Tegaderm dressing was applied over the catheter with careful attention to sterility. Patient tolerated procedure well. No immediate complications were met. Post procedure x-ray was completed, placement was appropriate and no pneumothorax was noted. Images obtained are saved for permanent record Procedural Ultrasound Guidance: Procedure Date: 01/30/2022 Indication: Central venous catheter insertion Attending: Dr. Cope Provider: DEVAN Vargas Artery AND Vein visualized: Yes Compressible Vein: Yes Guidewire or Short Catheter seen in vein prior to dilation: Yes Line confirmed in Vein with ultrasound: Yes Coding
[2022-01-30 05:25] LABS: HCO3 ABG 7 mmol/L (19-24); Oxygen Saturation ABG 97.9 % (90-95); PCO2 ABG 34 mmHg (35-46); PO2 ABG 96 mmHg (80-95)
--- NOTE | 2022-01-30 05:36 | Critical Care Consultation ---
Date of Consultation January 30, 2022 Assessment & Plan (1) Acute liver failure: Reason Critically Ill: 61-year-old male presents to the ICU with acute liver failure, acute renal failure, hepatic encephalopathy, and severe metabolic acidosis. Currently requiring vasopressor support and mechanical ventilation. Neuro - Acute metabolic encephalopathylikely multifactorial in the setting of metabolic acidosis, elevated ammonia, hyponatremia, possible alcohol withdrawal -CT head without acute intracranial process -Currently mechanically ventilated. Sedation with fentanyl/Versed -AMIRAH S protocol -Lactulose enemas -See hyponatremia below -Monitor Cardiac - Shockpatient with hypotension requiring vasopressor support in the setting of acute liver failure -Continue with Levophed, vasopressin for maps greater than 75 in the setting of hepatorenal syndrome -Continue with broad-spectrum antibiotics as cannot rule out septic component -Echo pending. Trend troponins -Trend CVP Atrial fibrillationconverted on Cardizem drip. No previous history of atrial fibrillation -Not anticoagulated. Consider cardiology consult for recommendations -Currently sinus tachycardia on monitor. Continuous monitoring on telemetry Respiratory - Respiratory failurepatient with labored breathing and unable to compensate for metabolic acidosis and becoming increasingly obtunded. Required intubation with mechanical ventilation -Trend ABG and weaned vent as tolerated as patient has severe acid-base imbalance -No significant hypoxia GI - Acute liver failureunsure of etiology at this time but given patient's history of alcohol abuse and fatty liver seen on CT, suspect this is related to alcoholic hepatitis -MELD score of 34. Significantly elevated LFTs with bilirubin 6.3 -Hepatitis panel pending, acetaminophen and salicylates pending -Starting on N-acetylcysteine drip per protocol -Ammonia 130, starting lactulose RENAL/LYTES - Acute renal failuresuspect hepatorenal syndrome, no previous history of renal disease. Patient with creatinine of 3 with previous creatinine 0.6 on other admissions -We will maintain maps greater than 75 -Avoid nephrotoxins and renally adjust medications -Velazquez inserted to monitor for urine output -Given due to development of shock it is likely patient will require CRRT Severe metabolic acidosispH 6.92 with high anion gap metabolic acidosis. Lactate pending. Likely secondary to liver failure/renal failure/hypotension -3 A bicarb bolus given in ED, now on bicarb drip -Trend pH. Patient may benefit from CRRT if unable to correct Hyponatremiasodium 122 likely in the setting of acute liver failure -We will consult nephrology and follow up recs -Goal to increase by 8 mEq/dL every 24 hour, currently on bicarb drip -Monitor every 6 BMPs - Foleystrict I's and O's ENDO - No history of diabetes or thyroid disease ICU hyperglycemic protocol HEME - Hemoglobin stable, platelets 167, monitor routine CBCs. Transfuse if indicated ID - Elevated WBC, afebrile -Procalcitonin pending, cultures pending -Continue with empiric Zosyn LINES/IV ACCESS - Left CVL IJ (01/30), left radial A-line (01/30), ET tube (01/30) DVT PROPHYLAXIS - SCDs, hold anticoagulation for elevated INR I have personally spent 85 minutes of critical care time in the direct management of this patient. This is a life/limb threatening event. This includes time spent evaluating patient, direct bedside care, chart review, placing orders, interpretation of diagnostic studies, discussion with consultants, patient, and family members, as well as other required patient management activities. This time is exclusive of all separately billable procedures, and teaching time and separate from and in addition to any other critical care service time. Thank you for allowing us to participate in the care of this patient. Please refer to my attending physician's documentation for any further recommendations. (2) Acute renal failure: (3) Hepatorenal syndrome: (4) Hypotension: (5) Hyponatremia: (6) Metabolic acidosis: (7) Hyperammonemia: (8) CAD (coronary artery disease): (9) Alcohol abuse: (10) Major depressive disorder: (11) Obesity: (12) Back pain: (13) Respiratory failure: (14) Acute metabolic encephalopathy: Supervising Physician Co-Signing Physician Notes Patient seen separately from the HERIBERTO. Agree with the assessment and plan aside for any additions/exceptions:. Patient profound septic shock and multiorgan failure related to liver failure. No new labs are pending. Will need evaluation by hepatic service and likely will need CRRT given his hemodynamic instability and persistent acidosis. Can consider fomepizole given elevated osmole gap and anion gap. Continue lung protective ventilation strategy. Continue to maintain mean arterial pressures above 65. Patient requiring higher doses of Levophed and vasopressin currently. Recommend initiation of stress dose steroids. Patient currently being transported by the [facility] crew to [place]. Family updated over the phone by the HERIBERTO. History of Present Illness History of Present Illness Patient is a 61-year-old male with past medical history of CAD, alcohol abuse, depression, HTN who presents to the emergency department earlier this evening with confusion. Patient had was experiencing headache and back pain following a fall. At the time he stated that he fell down steps approximately 4 days ago and did not recall if he lost consciousness. Patient was noted to be poor historian in the ED he reported drinking alcohol regularly. Lab work revealed elevated LFTs, severe metabolic acidosis, LOLI, hyponatremia and elevated ammonia. He became increasingly confused and ICU was consulted. On my evaluation in the emergency department patient was obtunded and tachypneic and not answering questions. ABG revealed a pH of 6.92. Decision was made to emergently intubate as I did not feel that he was protecting his airway. Patient was taken to B1 and given 3 A of bicarb and started on bicarb drip and intubated by the ED physician. Central line and A-line were then inserted. He was placed on Levophed as he became increasingly hypotensive. Repeat lab work now pending and patient is being transferred to ICU for further management at this time. Allergies Allergy/AdvReac Type Severity Reaction Status Date / Time No Known Allergies Allergy Verified 08/15/20 21:44 Home Medications Medication Instructions Recorded Confirmed Type varenicline 1 mg tablet (Chantix) 1 mg PO BID 06/19/20 05/15/21 History acetaminophen 325 mg tablet 650 mg PO Q4H PRN #30 tab 06/21/20 05/15/21 Rx loperamide 2 mg capsule 2 mg PO Q4H PRN #7 cap 06/21/20 05/15/21 Rx nitroglycerin 0.4 mg sublingual 0.4 mg SUBLINGUAL UD PRN #7 tab 06/21/20 05/15/21 Rx tablet (Nitrostat) Unknown B/P Med 1 tab PO DAILY 05/15/21 05/15/21 History albuterol sulfate 90 mcg/actuation 3 inh INHALATION Q6H #18 g 05/15/21 Rx aerosol inhaler cyclobenzaprine 5 mg tablet 5 - 10 mg PO Q8H PRN 05/15/21 05/15/21 History lidocaine 5 % topical patch 1 patch TRANSDERMAL QAM PRN 05/15/21 05/15/21 History prednisone 20 mg tablet 40 mg PO DAILY #10 tab 05/15/21 Rx cyclobenzaprine 10 mg tablet 10 mg PO Q8H PRN #15 tab 06/28/21 Rx lidocaine 5 % topical patch 1 patch TOPICAL DAILY #15 ea 06/28/21 Rx Patient History Medical History Hypertension No significant family history Prostate cancer Surgical History Stented coronary artery Family History Unknown Cancer brother and father had cancer (type not known at this time) Other No pertinent family history in first degree relatives Social History Smoking Status: Unknown if ever smoked Hx Alcohol Use: Yes Alcohol type: beer Hx Substance Use: No Preferred Language: Taiwanese Communication Ability: Effective Marketing Administrative Assistant Required: No Beliefs That Will Affect Care: None Current Living Situation: Alone Other Information That Helps Us Care for You: No Feels Safe at Home: Declines to Answer Assistive Devices: None Review of Systems Review of Systems: Unobtainable due to cognitive status Physical Exam Constitutional: + acute distress, + obese and + altered mental status Eyes: PERRL, conjunctivae normal, anicteric sclerae ENMT: external ear and nose normal, oropharynx normal Neck: trachea midline, no thyromegaly Respiratory: + uses accessory muscles, + tachypneic and symmetric chest movement; no cough Cardiovascular: Rate/Rhythm: + tachycardic and + irregularly irregular Heart Sounds: normal S1 and normal S2; no murmur Gastrointestinal (Abdomen): Abdomen distended, semifirm. Unable to assess tenderness. Bowel sounds auscultated all 4 quadrants Musculoskeletal: Unable to assess Skin: no rashes, warm and dry Neurologic: Confused, obtunded, does not follow commands Psychiatric: Obtunded Genitourinary: Indwelling Velazquez catheter present Results & Data Results & Data ([facility]) Vital Signs (Past 12 Hours) Vital Signs Temp Pulse Pulse Resp BP BP Pulse Ox 01/30/22 04:50 82 19 01/30/22 04:40 81 19 06/21/22 04:30 82 15 01/30/22 04:20 77 17 01/30/22 04:10 106 H 23 01/30/22 04:00 107 H 22 89 L 01/30/22 03:58 113 H 22 96/59 L 01/30/22 03:56 109 H 22 65/55 L 93 01/30/22 03:54 120 H 22 103/67 97 01/30/22 03:52 122 H 27 H 97/66 L 100 01/30/22 03:50 121 H 26 H 84/58 L 100 01/30/22 03:40 88 23 100 01/30/22 03:32 90 25 H 87/56 L 96 01/30/22 03:30 91 H 32 H 01/30/22 03:20 97 H 21 100 01/30/22 03:16 95 H 27 H 97/70 L 100 01/30/22 03:10 91 H 35 H 98 01/30/22 03:00 94 H 28 H 108/71 83 L 01/30/22 02:53 93 H 30 H 99/74 L 99 01/30/22 02:50 93 H 31 H 99 01/30/22 02:47 93 H 19 83/62 L 94 01/30/22 02:44 94 H 31 H 76/58 L 97 01/30/22 02:40 94 H 25 H 100 01/30/22 02:34 94 H 28 H 83/52 L 100 01/30/22 02:30 92 H 32 H 100 01/30/22 02:27 93 H 24 108/60 01/30/22 02:25 94 H 29 H 01/30/22 02:22 95 H 24 69/30 L 97 01/30/22 02:20 96 H 27 H 01/30/22 02:17 96 H 20 57/38 L 97 01/30/22 02:10 94 H 29 H 98 01/30/22 02:03 96 H 31 H 123/65 98 01/30/22 02:01 95 H 30 H 123/65 98 01/30/22 02:00 97 H 28 H 98 01/30/22 01:50 96 H 26 H 100 01/30/22 01:46 134 H 29 H 127/100 97 01/30/22 01:35 125 H 30 H 125/76 98 01/29/22 23:42 152 H 16 107/74 94 01/29/22 22:22 36.5 C 109 H 22 107/74 96 Coding Level of Care Code Critical Care ea addt'l 30 min Diagnoses Acute liver failure K72.00 Acute renal failure N17.9 Hepatorenal syndrome K76.7 Hypotension I95.9 Hyponatremia E87.1 Metabolic acidosis E87.2 Hyperammonemia E72.20 CAD (coronary artery disease) I25.10 Alcohol abuse F10.10 Major depressive disorder F33.1 Active/Remission status: currently active Major depression episode severity: moderate Major depression recurrence: recurrent Obesity E66.9 Back pain M54.9 Respiratory failure J96.90 Acute metabolic encephalopathy G93.41 (1) Major depressive disorder Active/Remission status: currently active Major depression episode severity: moderate Major depression recurrence: recurrent Qualified Code(s): F33.1 - Major depressive disorder, recurrent, moderate
[2022-01-30] MEDS ORDERED: VASOPRESSIN 20 UNITS in 0.9 % SODIUM CHLORIDE 100 ML IV SCH (05:45)
[2022-01-30 05:46] LABS: Allen Test Pos (Pos)
[2022-01-30] MEDS ORDERED: LACTULOSE 200GM/700ML WTR ENEMA PR SCH ×2 (06:00→06:32)
[2022-01-30] MEDS ORDERED: AcetylCYSTEINE 15,000 MG in D5W 200mL (Load) IV ONE (06:00)
[2022-01-30 06:08] LABS: pH ABG < 7.00 (7.35-7.45)
[2022-01-30 06:09] LABS: Est GFR (African American) 19.6 ml/min; Potassium 4.3 mmol/L (3.5-5.1)
[2022-01-30 06:10] LABS: BUN Creatinine Ratio 6.9 (10-20); Creatinine Clr Calc Pharmacy 23.9 ml/min; Phosphorus 10.2 mg/dl (2.5-4.9)
[2022-01-30] MEDS ORDERED: SODIUM BICARB 8.4% INJ 50 MEQ/50 ML SYR IV STA ×5 (06:22→07:04)
[2022-01-30] MEDS ORDERED: PIPERACILLIN/TAZOBACTAM 3.375 GM in DEXTROSE 5% 100 ML IV ONE (06:30)
[2022-01-30] MEDS ORDERED: LORazepam 1 MG in SYRINGE 0.5 ML IV PRN (06:32)
[2022-01-30] MEDS ORDERED: ICU PROTOCOL FOR HYPERGLYCEMIA PRN (06:32)
[2022-01-30] MEDS ORDERED: LORazepam 3 MG in SYRINGE 1.5 ML IV PRN (06:32)
[2022-01-30] MEDS ORDERED: VANCOMYCIN CONSULT ACTIVE PRN (06:32)
[2022-01-30] MEDS ORDERED: GABAPENTIN 600MG ALCOHOL WITHDRAWAL LOAD PO STA (06:32)
[2022-01-30] MEDS ORDERED: ATIVAN IV ALCOHOL WITHDRAWL IV PRN (06:32)
[2022-01-30] MEDS ORDERED: LORazepam 2 MG in SYRINGE 1 ML IV PRN (06:32)
[2022-01-30] MEDS ORDERED: GABAPENTIN 600 MG TAB PO ONE (06:32)
[2022-01-30 06:53] LABS: Acetaminophen < 3 ug/ml (10-30); Salicylate < 3.0 mg/dl (3.0-30)
--- NOTE | 2022-01-30 06:53 | XRay Report ---
XR humerus LT 2V HISTORY: 61 years-old Male trauma acute pain of the left upper arm COMPARISON: None TECHNIQUE: 2 views of the left humerus FINDINGS: There is at least mild osteoarthritis of the shoulder. No acute fracture, dislocation or opaque forei gn body. Unremarkable soft tissues. IMPRESSION: No acute fracture. ACT 112: Negative or not required by law. The above report was generated using voice recognition software. It may contain grammatical, syntax o r spelling errors. Electronically signed by: Ivan Lr M.D. 01/30/2022 6:51 AM
--- NOTE | 2022-01-30 06:56 | XRay Report ---
XR tibia fibula LT 2V HISTORY: 61 years-old Male trauma acute trauma of the left lower leg COMPARISON: None TECHNIQUE: 2 views of the left tibia and fibula FINDINGS: Moderate soft tissue swelling of the ankle. There is mild osteoarthritis of the knee and ankle withou t acute fracture, dislocation or opaque foreign body. IMPRESSION: No acute fracture. ACT 112: Negative or not required by law. The above report was generated using voice recognition software. It may contain grammatical, syntax o r spelling errors. Electronically signed by: Ivan Lr M.D. 01/30/2022 6:55 AM
[2022-01-30] MEDS ORDERED: AcetylCYSTEINE 5,000mg in D5W 500mL (Maint Dose #1) IV SCH (07:00)
--- NOTE | 2022-01-30 07:01 | XRay Report ---
XR chest 1V portable HISTORY: 61 years-old Male eval for central line placement acute respiratory failure COMPARISON: Chest CT 01/29/2022, Chest radiograph 01/30/2022 TECHNIQUE: Supine AP view of the chest FINDINGS: Endotracheal tube overlies the midline, 3.5 cm superior to the nita. Left IJ central venous cathete r is noted with distal tip to the right of midline in the expected location of the SVC brachiocephali c confluence. No postprocedural pneumothorax. The heart is enlarged. Development of pulmonary vascula r congestion with reticular interstitial densities. The bones appear grossly intact. IMPRESSION: 1. Endotracheal and left IJ placement as above. No pneumothorax. 2. Cardiomegaly with pulmonary vascular congestion and interstitial coarsening suggestive of developi ng pulmonary edema. ACT 112: Negative or not required by law. The above report was generated using voice recognition software. It may contain grammatical, syntax o r spelling errors. Electronically signed by: Ivan Lr M.D. 01/30/2022 7:00 AM
--- NOTE | 2022-01-30 07:02 | XRay Report ---
XR chest 1V portable HISTORY: 61 years-old Male post intubation acute respiratory failure COMPARISON: Chest CT 01/29/2022 TECHNIQUE: Portable AP view of the chest FINDINGS: Cardiac silhouette is enlarged. Endotracheal tube overlies the midline, 3.4 cm superior to the nita . No pneumothorax, definite pleural effusion or lobar airspace consolidation. Pulmonary vascular kody estion with interstitial coarsening. Bones appear grossly intact. IMPRESSION: 1. Endotracheal tube terminates 3.4 cm superior to the nita. 2. Cardiomegaly with pulmonary vascular congestion and interstitial coarsening suggestive of developi ng pulmonary edema. ACT 112: Negative or not required by law. The above report was generated using voice recognition software. It may contain grammatical, syntax o r spelling errors. Electronically signed by: Ivan Lr M.D. 01/30/2022 7:01 AM
--- NOTE | 2022-01-30 07:02 | Communication Note ---
Date of Service: January 30, 2022 Patient has continued to decompensate requiring increased doses of vasopressor. pH has continued to worsen and lactate now 23. He has a calculated meld of 34. His prognosis is extremely poor at this point. I did speak with the patient's son regarding his decompensating clinical status. The patient's son would like everything possible done for his father. He remains full code. I discussed transfer for possible CRRT for which the son did give consent. He understands that prognosis is poor and his father will likely not survive this hospitalizat ion. I called [facility] and spoke with Dr. Arnav Hwang, shovel engineer, who has accepted the patient at [facility]. We are currently awaiting a bed for placement and transfer. CRITICAL CARE TIME - I have personally spent 45 minutes of critical care time in the direct management of this patient. This is a life/limb threatening event. This includes time spent evaluating patient, direct bedside care, chart review, placing orders, interpretation of diagnostic studies, discussion with consultants, patient, and family members, as well as other required patient management activities. This time is exclusive of all separately billable procedures, and teaching time and separate from and in addition to any other critical care service time. Coding Level of Care Code Critical Care indio addt'l 30 min
[2022-01-30 07:07] LABS: iSTAT Art Bld Gas pCO2 Correct 31 mmHg (35-46); iSTAT Art Bld Gas pH Corrected 7.166 (7.35-7.45); iSTAT Arterial Blood Gas HCO3 12 meg/L (19-24); iSTAT Arterial Blood Gas pCO2 36 mmHg (35-46); iSTAT Arterial Blood Gas pH 7.12 (7.35-7.45); iSTAT Arterial Blood Gas pO2 92 mmHg (80-95); iSTAT Arterial Blood Gas pO2 C 74; iSTAT Carbon Dioxide 13 mmol/L (24-31); iSTAT FiO2 40 %; iSTAT Hematocrit 34 % (42-52); iSTAT Hemoglobin 11.6 g/dl (14.0-18.0); iSTAT Potassium 3.9 mmol/L (3.3-5.0); iSTAT Site Art Line; iSTAT Sodium 127 mmol/L (135-144)
[2022-01-30] MEDS ORDERED: VANCOMYCIN HCL 2,000 MG in SODIUM CHLORIDE 0.9% 500 ML IV ONE (07:15)
--- NOTE | 2022-01-30 07:21 | History and Physical Report ---
DATE OF ADMISSION: 01/29/2022. CHIEF COMPLAINT: Fall, encephalopathy, hyponatremia, LOLI, metabolic acidosis. HISTORY OF PRESENT ILLNESS: This is a 61-year-old male with past medical history significant for hyperlipidemia, CAD, hypertension, obesity, GERD, history of prostate cancer, history of depression, who presents with frequent falls at home. The patient when he came in, he was somewhat alert and was able to talk, was able to even go to the bathroom, but now he is being confused, agitated. He is getting intubated in the ER. As per the son, he drinks 6 beers every day. He smokes like 4-6 cigarettes daily. He used to do drugs a long time back, but not doing anymore, and since last 2 weeks he deteriorated rapidly, he is falling frequently. He is very imbalanced, dizzy, and he was taking strange pills at home.Hallucinating Son requested to check for drug screen. He is also requesting to check for any poison and he says there is possibility of him being poisoned. He was complaining of neck pain, back pain, side pain yesterday. There was no cough, no nausea as per the son. Could not get any history from the patient. He is afebrile in the ER. Initially he is holding his blood pressure, saturating fine on room air. His white count is 18, hemoglobin 12, platelets 167. INR 1.6. His point of care pH of 6.9, pCO2 of 17, pO2 of 117, bicarbonate 4. Sodium is 122, potassium 4.3, chloride 81, CO2 of 6, anion gap 35, BUN 23, creatinine 3.1, serum glucose 66, magnesium 2.4, total bilirubin 6.3, AST 1048, ALT 310, alkaline phosphatase 254. Ammonia 135. Troponin 108. Ethyl alcohol 18.6. SARS-CoV-2 negative. He had imaging studies of thoracic spine, CT chest, CT of abdomen and pelvis, head CT, cervical spine CT, which preliminary reports are unremarkable. ALLERGIES: No known drug allergies. PAST MEDICAL HISTORY: As mentioned above. PAST SURGICAL HISTORY: Injection of lumbosacral spine on 12/04/2021 by pain management. MEDICATIONS: As per [facility]. The patient is on celecoxib 100 mg daily, duloxetine 20 mg p.o. daily, gabapentin 100 mg a.m. and 200 mg in p.m., omeprazole 40 mg p.o. daily, aspirin 81 mg p.o. daily, atorvastatin 20 mg p.o. daily, fluoxetine 40 mg p.o. daily, hydroxyzine 50 mg p.o. at bedtime, Imdur 30 mg p.o. daily, lisinopril 5 mg p.o. daily, metoprolol tartrate 25 mg p.o. b.i.d. FAMILY HISTORY: Significant for no family history on file. SOCIAL HISTORY: He lives with the son. Smokes 5 cigarettes daily Alcohol, drinks six pack beers every day. As per son, he used to do drugs a long long time back. REVIEW OF SYSTEMS: Unobtainable at this time. PHYSICAL EXAMINATION: GENERAL: The patient is agitated. VITAL SIGNS: Temperature 36.5, pulse 96, respiratory rate 31, blood pressure 123/65, oxygen 98% on room air. HEENT: Pupils equal, round and reactive to light. Head is atraumatic. No facial droop seen. CARDIOVASCULAR: S1 and S2 heard, tachycardia. No murmurs, no rub, no gallop. RESPIRATORY SYSTEM: Normal AP diameter. No accessory muscle use. No wheezing, no crackles. ABDOMEN: Soft. Bowel sounds are present, nontender, no distention. CENTRAL NERVOUS SYSTEM: Confused. Moves extremities. No facial droop seen. Speech is okay. EXTREMITIES: Mild edema, no erythema seen. LABORATORY DATA: WBC 18, hemoglobin 12.1, hematocrit 36.7, platelets 167. PT 16.6, INR 1.6. Point of care pH 6.9, pCO2 of 17, bicarbonate 4, sodium 122, potassium 4.3, chloride 81, CO2 of 6, anion gap 35, BUN 23, creatinine 3.1, serum glucose 66, calcium 9.1, magnesium 2.4, total bilirubin 6.3, AST 1048, ALT 310, alkaline phosphatase 254. Ammonia 135. Troponin 1 high sensitivity 108. TSH 0.7. Ethyl alcohol 18. SARS-CoV-2 rapid test negative. IMAGING DATA: CT head, preliminary report, no acute findings. CT cervical spine, preliminary report, no acute findings. CT chest without contrast, preliminary report, no acute findings. CT abdomen and pelvis without contrast, preliminary report, no acute findings. CT thoracic spine, preliminary report, diffuse osteopenia with multilevel degenerative disease of the thoracic spine, no acute fracture seen. EKG: Showed AFib at a rate of 154. Nonspecific ST abnormalities. ASSESSMENT AND PLAN: This is a 61-year-old male who presents with fall, but now going into encephalopathy. 1. Encephalopathy: Most likely could be hepatic encephalopathy, could be hepatorenal syndrome from alcohol withdrawal, metabolic acidosis, getting intubated. Vent management as per critical care. The patient also meets criteria for sepsis with elevated white count and tachycardia. Starting on bicarbonate drip, D5 water, at 150 mEq, sodium bicarbonate at a rate of 100 mL per hour. Closely monitor in the ICU. Empiric antibiotics, cefepime and vancomycin. 3. Hyponatremia. Sodium 122. Following BMP every 4 hours. Fluids as above. Follow urine osmolality, serum osmolality, urine sodium levels. Close correction of the sodium levels. 4. Alcoholism: Monitor for withdrawal closely. Currently s/p intubated and on versed drip. 5. Anion gap metabolic acidosis: On bicarbonate drip. Follow the repeat labs. 6. Acute kidney injury: Creatinine of 3.1. CT abdomen and pelvis was okay. Getting fluids. Avoid nephrotoxic agents. Follow the repeat labs. Closely monitor. Nephro consulted. 7. Hypoglycemia: Getting dextrose and bicarbonate drip. Will follow the labs. 8. Hepatic encephalopathy: ammonia of 135. Ordered lactulose enemas. 9. Hepatitis:Transaminitis. Will follow hepatic panel. Follow the repeat labs and GI consult. Will also follow Tylenol levels, salicylate levels, urine drug screen.ICU started on n acetylcysteine drip 10. Transient rapid atrial fibrillation: Received Cardizem in the ER. Will monitor. Will get echo and cardiac consult. 11. History of hypertension: Seems to be at home on Imdur, lisinopril, metoprolol. Hold the lisinopril. Will restart Imdur and Lopressor when able to. 12. History of coronary artery disease: Will hold statin because of elevated LFTs. Restart metoprolol when able to. 13. Prostate cancer: Status post radiation and hormonal therapy. 14. History of depression: Seems to be on duloxetine. 15. Deep venous thrombosis prophylaxis: Sequential compression devices for now. DISPOSITION: Closely monitor in the ICU. Level 1 full code as per my discussion with the son. Addendum: d/w poison control as son was concerned for any poisoning. No osmolar gap. Poison control recommended to check for Depakote level(patient is not on the medication) and agrees with N acetylcysteine and poison control is going to follow along. Lactic acid came as 23. Because of high meld score of 34 and requiring pressors and Ph worsening and poor prognosis and may need CRRT patient is getting transferred to [place] as son wants everything done as per Critical care. Job ID: [id number] MTDD
[2022-01-30 07:50] LABS: BUN Creatinine Ratio 7.1 (10-20); Calcium 7.5 mg/dl (8.5-10.1); Creatinine Clr Calc Pharmacy 24.5 ml/min; Est GFR (African American) 20.3 ml/min; Est GFR (Non-African American) 17.5 ml/min
--- NOTE | 2022-01-30 07:50 | CT Scan Report ---
CT head/brain wo con CLINICAL HISTORY: Status post fall. Pain. COMPARISON STUDY: No previous studies for comparison. CT DOSE: TECHNIQUE: Standard CT of the Brain was performed without IV contrast. A dose lowering technique was utilized adhering to the principles of ALARA. FINDINGS: Extraaxial space: There is no evidence for subdural hematoma. There are no extra-axial fluid collecti ons. Ventricles and cisterns: The ventricles are normal in size and configuration. There is no evidence fo r midline shift or mass effect. Parenchyma: There is no subarachnoid or intraparenchymal hemorrhage. There is no evidence for an acut e infarct or cerebral edema. There is homogeneous attenuation of the brain parenchyma. There are no g ross mass lesions. Osseous structures: There is no evidence for an acute fracture. The visualized paranasal sinuses are clear. The mastoid air cells are clear bilaterally. Soft tissues: There is no evidence for focal soft tissue swelling. IMPRESSION: 1. No acute intracerebral pathology. ACT 112: Negative or not required by law. Electronically signed by: Otis Love M.D. 01/30/2022 7:48 AM
--- NOTE | 2022-01-30 07:58 | CT Scan Report ---
CT abd pelvis wo con CLINICAL HISTORY: Status post fall. Low back pain. COMPARISON STUDY: No previous studies for comparison. CT DOSE: TECHNIQUE: Standard CT of the Abdomen and Pelvis was performed without IV contrast. The patient did not receive oral contrast. A dose lowering technique was utilized adhering to the principles of RUY Edward. FINDINGS: Lung base: The lung bases are clear. There is breathing motion artifact present. Abdominal cavity: There is no evidence for abdominal mass, adenopathy or ascites. Liver: There is diffuse fatty infiltration of the liver. There is mild hepatomegaly with no focal mas ses identified.. Spleen: The spleen is homogeneous in attenuation on these limited noncontrast images. Pancreas: The pancreas is homogeneous in attenuation on these limited noncontrast images. Gall Bladder: The gallbladder is well distended with no evidence for cholelithiasis, wall thickening or pericholecystic edema.. Adrenal glands: The adrenal glands are normal in size and attenuation on these limited noncontrast im ages. Kidneys: The kidneys are homogeneous in attenuation on these limited noncontrast images. There is no evidence for gross renal mass, calculus or hydronephrosis bilaterally. Bowel: The bowel loops are normally placed within the abdomen and pelvis without evidence for dilatat ion or obstruction. There is no evidence for mass lesion. There is sigmoid diverticulosis without fabrizio dence for diverticulitis. There are no inflammatory changes present. There is no evidence for free ai r. Bladder: There is no evidence for focal bladder wall thickening, calculus or diverticulum. : There is no evidence for pelvic mass or adenopathy. Vasculature: There is no evidence for focal aneurysmal dilatation of the abdominal aorta. Atheroscler otic calcification is present. Osseous structures: There is no acute osseous pathology. Degenerative changes are seen within the spi ne. IMPRESSION: 1. No acute intra-abdominal or pelvic abnormality on these limited noncontrast images. 2. Mild hepatomegaly with fatty infiltration of the liver. 3. Sigmoid diverticulosis without evidence for diverticulitis. 4. Additional nonacute findings are delineated above. ACT 112: Negative or not required by law. Electronically signed by: Otis Love M.D. 01/30/2022 7:56 AM
[2022-01-30] MEDS ORDERED: CALCIUM GLUCONATE 10% 2,000 MG in DEXTROSE 5% 50 ML IV ONE (08:00)
--- NOTE | 2022-01-30 08:04 | CT Scan Report ---
CT cervical spine wo con CLINICAL HISTORY: 61 years-old Male with trauma. Acute neck pain status post trauma COMPARISON: CT thoracic spine of same day TECHNIQUE: Multiple axial CT images of the cervical spine were obtained without contrast. A dose low ering technique was utilized adhering to the principles of ALARA. FINDINGS: Moderate degeneration at C1-C2. Moderate intervertebral disc space narrowing with associate d spondylitic spurring and posterior disc osteophyte complex formation at C6 or C7. Moderate to sever e C7-T1 facet arthrosis. There is straightening of the normal cervical lordosis with mild multilevel spondylitic spurring and facet arthropathy. No acute fracture or subluxation. The cervical soft tissues appear unremarkable. The visualized lung apices appear clear. IMPRESSION: No acute cervical spine fracture or subluxation. ACT 112: Negative or not required by law. The above report was generated using voice recognition software. It may contain grammatical, syntax o r spelling errors. Electronically signed by: Ivan Lr M.D. 01/30/2022 8:02 AM
[2022-01-30 08:09] LABS: Folate (Folic Acid) > 22.30 ng/ml (>5.38)
[2022-01-30 08:10] LABS: Vitamin B12 > 1500 pg/ml (180-914)
[2022-01-30 08:12] LABS: Cortisol Random > 60.00 mcg/dl
[2022-01-30 08:19] LABS: Troponin I High Sensitivity 881.9 pg/ml (0-20)
[2022-01-30] MEDS ORDERED: THIAMINE HCL 100 MG in SYRINGE 9 ML IV SCH (09:00)
[2022-01-30] MEDS ORDERED: FOLIC ACID 1 MG in SYRINGE 9.8 ML IV SCH (09:00)
--- NOTE | 2022-01-30 09:50 | CT Scan Report ---
CT chest diagnostic wo con, CT thoracic spine wo con CT DOSE: 7927.00 mGy.cm CLINICAL HISTORY: 61 years-old Male with trauma. Acute chest and back pain status post trauma TECHNIQUE: Multiaxial CT images of the chest and thoracic spine were performed without contrast. A d ose lowering technique was utilized adhering to the principles of ALARA. COMPARISON: None. FINDINGS: CT CHEST: No thyroid nodule or lymphadenopathy. Moderate cardiomegaly with moderate to extensive coronary arter y calcifications. Atherosclerosis of the thoracic aorta without aneurysm. There is no pneumothorax, p leural effusion, airspace consolidation or overt pulmonary edema. There are no suspicious pulmonary n odules or masses identified. The central airways appear patent. Mild bilateral gynecomastia. Degenera tive changes of the shoulders and spine. No acute fracture identified. Severe hepatic steatosis with mild fatty sparing near the raysa hepatis. Marginal nodularity is sugg estive of associated cirrhosis. Thickening of the adrenal glands suggests hyperplasia. CT THORACIC: Mild multilevel intervertebral disc space narrowing, spondylitic spurring and facet arthrosis. Verteb ral body hemangiomata noted at the T2 and L1 levels. No acute fracture, subluxation or endplate erosi ons. No paravertebral edema. Unremarkable soft tissues. IMPRESSION: 1. No acute posttraumatic intrathoracic abnormality. 2. No acute fracture or pneumothorax. 3. Additional findings as above. ACT 112: Negative or not required by law. Electronically signed by: Ivan Lr M.D. 01/30/2022 9:49 AM
--- NOTE | 2022-01-30 10:47 | Discharge Summary ---
Date of Service January 30, 2022 Admission HPI Per Admitting Provider This is a 61-year-old male with past medical history significant for hyperlipidemia, CAD, hypertension, obesity, GERD, history of prostate cancer, history of depression, who presents with frequent falls at home. The patient when he came in, he was somewhat alert and was able to talk, was able to even go to the bathroom, but now he is being confused, agitated. He is getting intubated in the ER. As per the son, he drinks 6 beers every day. He smokes like 4-6 cigarettes daily. He used to do drugs a long time back, but not doing anymore, and since last 2 weeks he deteriorated rapidly, he is falling frequently. He is very imbalanced, dizzy, and he was taking strange pills at home.Hallucinating Son requested to check for drug screen. He is also requesting to check for any poison and he says there is possibility of him being poisoned. He was complaining of neck pain, back pain, side pain yesterday. There was no cough, no nausea as per the son. Could not get any history from the patient. He is afebrile in the ER. Initially he is holding his blood pressure, saturating fine on room air. His white count is 18, hemoglobin 12, platelets 167. INR 1.6. His point of care pH of 6.9, pCO2 of 17, pO2 of 117, bicarbonate 4. Sodium is 122, potassium 4.3, chloride 81, CO2 of 6, anion gap 35, BUN 23, creatinine 3.1, serum glucose 66, magnesium 2.4, total bilirubin 6.3, AST 1048, ALT 310, alkaline phosphatase 254. Ammonia 135. Troponin 108. Ethyl alcohol 18.6. SARS-CoV-2 negative. He had imaging studies of thoracic spine, CT chest, CT of abdomen and pelvis, head CT, cervical spine CT, which preliminary reports are unremarkable. Admission Exam Per Admitting Provider GENERAL: The patient is agitated. VITAL SIGNS: Temperature 36.5, pulse 96, respiratory rate 31, blood pressure 123/65, oxygen 98% on room air. HEENT: Pupils equal, round and reactive to light. Head is atraumatic. No facial droop seen. CARDIOVASCULAR: S1 and S2 heard, tachycardia. No murmurs, no rub, no gallop. RESPIRATORY SYSTEM: Normal AP diameter. No accessory muscle use. No wheezing, no crackles. ABDOMEN: Soft. Bowel sounds are present, nontender, no distention. CENTRAL NERVOUS SYSTEM: Confused. Moves extremities. No facial droop seen. Speech is okay. EXTREMITIES: Mild edema, no erythema seen. Principal Diagnosis Encephalopathy, LOLI, Metabolic acidosis, LOLI, Elevated ammonia. elevated LFT's, Alcoholism Discharge Data Allergies Allergy/AdvReac Type Severity Reaction Status Date / Time No Known Allergies Allergy Verified 08/15/20 21:44 Consultations 01/30/22 06:32 Consult Cardiology Routine Consult Gastroenterology Routine Consult Business Proposal Rep Routine 01/30/22 07:09 Burn CD for patient Stat 01/30/22 08:00 Consult Nephrology Routine Ordered Studies 01/29/22 22:30 CT cervical spine wo con Urgent CT head/brain wo con Urgent 01/29/22 23:02 CT abd pelvis wo con Urgent CT chest diagnostic wo con Urgent CT thoracic spine wo con Urgent Hospital Course (1) Acute metabolic encephalopathy: (2) Respiratory failure: (3) Hyperammonemia: (4) Metabolic acidosis: (5) Hyponatremia: (6) Hypotension: (7) Hepatorenal syndrome: (8) Acute renal failure: (9) Alcohol abuse: This is a 61-year-old male who presents with fall, but now going into encephalopathy. 1. Encephalopathy: Most likely could be hepatic encephalopathy, could be hepatorenal syndrome from alcohol withdrawal, metabolic acidosis, getting intubated. Vent management as per critical care. The patient also meets criteria for sepsis with elevated white count and tachycardia. Starting on bicarbonate drip, D5 water, at 150 mEq, sodium bicarbonate at a rate of 100 mL per hour. Closely monitor in the ICU. Empiric antibiotics, cefepime and vancomycin. 3. Hyponatremia. Sodium 122. Following BMP every 4 hours. Fluids as above. Follow urine osmolality, serum osmolality, urine sodium levels. Close correction of the sodium levels. 4. Alcoholism: Monitor for withdrawal closely. Currently s/p intubated and on versed drip. 5. Anion gap metabolic acidosis: On bicarbonate drip. Follow the repeat labs. 6. Acute kidney injury: Creatinine of 3.1. CT abdomen and pelvis was okay. Getting fluids. Avoid nephrotoxic agents. Follow the repeat labs. Closely monitor. Nephro consulted. 7. Hypoglycemia: Getting dextrose and bicarbonate drip. Will follow the labs. 8. Hepatic encephalopathy: ammonia of 135. Ordered lactulose enemas. 9. Hepatitis:Transaminitis. Will follow hepatic panel. Follow the repeat labs and GI consult. Will also follow Tylenol levels, salicylate levels, urine drug screen.ICU started on n acetylcysteine drip 10. Transient rapid atrial fibrillation: Received Cardizem in the ER. Will monitor. Will get echo and cardiac consult. 11. History of hypertension: Seems to be at home on Imdur, lisinopril, metoprolol. Hold the lisinopril. Will restart Imdur and Lopressor when able to. 12. History of coronary artery disease: Will hold statin because of elevated LFTs. Restart metoprolol when able to. 13. Prostate cancer: Status post radiation and hormonal therapy. 14. History of depression: Seems to be on duloxetine. 15. Deep venous thrombosis prophylaxis: Sequential compression devices for now. DISPOSITION: Closely monitor in the ICU. Level 1 full code as per my discussion with the son. Addendum: d/w poison control as son was concerned for any poisoning. No osmolar gap. Poison control recommended to check for Depakote level(patient is not on the medication) and agrees with N acetylcysteine and poison control is going to follow along. Lactic acid came as 23. Because of high meld score of 34 and requiring pressors and Ph worsening and poor prognosis and may need CRRT patient is getting transferred to [place] as son wants everything done as per Critical care.Transferred to [place] in critical condition. Total Time Total Time Spent Total Time Spent (In Minutes): 70 minutes Discharge Plan Discharge Items Reason For Visit: FALL Follow-up/Referrals: Rush Bingham MD [Primary Care Provider] - Medications and DC Order Prescriptions: No Action varenicline [Chantix] 1 mg tablet 1 mg PO BID RF: 0 nitroglycerin [Nitrostat] 0.4 mg Tablet, Sublingual 0.4 mg sublingual UD PRN (Reason: chest pain) Qty: 7 RF: 0 acetaminophen 325 mg Tablet 650 mg PO Q4H PRN (Reason: pain) Qty: 30 RF: 0 loperamide 2 mg Capsule 2 mg PO Q4H PRN (Reason: loose stool) Qty: 7 RF: 0 lidocaine 5 % adhesive patch,medicated 1 patch topical DAILY Qty: 15 RF: 0 cyclobenzaprine 10 mg tablet 10 mg PO Q8H PRN (Reason: muscle spasm) Qty: 15 RF: 0 albuterol sulfate 90 mcg/actuation HFA aerosol inhaler 3 inh inhalation Q6H Qty: 18 RF: 2 prednisone 20 mg tablet 40 mg PO DAILY Qty: 10 RF: 0 Unknown B/P Med 1 tab PO DAILY RF: 0 lidocaine 5 % adhesive patch,medicated 1 patch transdermal QAM PRN (Reason: Pain) RF: 0 cyclobenzaprine 5 mg tablet 5 - 10 mg PO Q8H PRN (Reason: MUSCLE SPASMS) RF: 0 Admission Data Admit Date/Time: 01/30/22 03:00 Attending Provider: Mauro Robertson Admit Provider: Han Galindo Primary Care Provider: Rush Bingham Other Providers: Yaron Diop ; Kraig Deleon ; Enoch Moore ; Zaire Keys ; Naseem Lopez ; Alex Graves ; Sarita Hardy ; Enedelia Rowell ; Yuliana Day ; Mitch Augustine ; Eliud Melton ; Redd Fierro ; Selene Hernandez Other Interventions: Discharge Summary Assessment (RN) Last Done: 01/30/22 09:34
[2022-01-30] MEDS ORDERED: AcetylCYSTEINE 10,000 MG in D5W 1L (Maint Dose #2) IV SCH (11:00)
[2022-01-30] MEDS ORDERED: PIPERACILLIN/TAZOBACTAM 3.375 GM in DEXTROSE 5% 100 ML IV SCH (12:00)
[2022-01-30] MEDS ORDERED: GABAPENTIN 100 MG CAP PO SCH (12:00)
--- NOTE | 2022-01-30 13:28 | Electrocardiogram Report ---
Test Reason : Blood Pressure : / mmHG Vent. Rate : 154 BPM Atrial Rate : 156 BPM P-R Int : 000 ms QRS Dur : 104 ms QT Int : 316 ms P-R-T Axes : 000 079 028 degrees QTc Int : 506 ms Atrial fibrillation with rapid ventricular response Nonspecific ST abnormality Abnormal ECG When compared with ECG of 29-JAN-2022 22:16, (unconfirmed) Atrial fibrillation has replaced Sinus rhythm Nonspecific T wave abnormality now evident in Inferior leads T wave amplitude has decreased in Lateral leads Confirmed by Trey Welsh ([id number]) on 01/30/2022 1:28:01 PM Referred By: REFERRED SELF Confirmed By:Trey Welsh
[2022-01-31] MEDS ORDERED: CEFEPIME 1,000 MG in SYRINGE 0 ML IV SCH (05:00)
[2022-01-31] MEDS ORDERED: GABAPENTIN 600 MG TAB PO SCH (06:00)
[2022-01-31 14:31] LABS: HBSAG NON-REACTIVE (NON-REACTIVE); Hepatitis A Antibody IgM NON-REACTIVE (NON-REACTIVE); Hepatitis B Core Antibody IgM NON-REACTIVE (NON-REACTIVE)
[2022-02-01] MEDS ORDERED: GABAPENTIN 400 MG CAP PO SCH (06:00)
--- NOTE | 2022-02-01 10:44 | Communication Note ---
Date of Service: February 01, 2022 on 01/30/22 nephrology was consulted for this patient; he was transferred before he could be evaluated by nephro; no consult done
[2022-02-02] MEDS ORDERED: GABAPENTIN 100 MG CAP PO SCH (06:00)
== END 2022-01-30 09:37 | disposition short-term general hospital (02) | DRG 871 ==
LOC: ED 22:00 → 1E 01-30 03:00
DX: E72.20 Disorder of urea cycle metabolism, unspecified; G93.41 Metabolic encephalopathy; F10.10 Alcohol abuse, uncomplicated; R65.21 Severe sepsis with septic shock; A41.9 Sepsis, unspecified organism; K76.7 Hepatorenal syndrome; E66.9 Obesity, unspecified; Z79.82 Long term (current) use of aspirin; N17.9 Acute kidney failure, unspecified; E16.2 Hypoglycemia, unspecified; E87.2 Acidosis; I25.10 Atherosclerotic heart disease of native coronary artery without angina pectoris; Z85.46 Personal history of malignant neoplasm of prostate; R29.6 Repeated falls; I10 Essential (primary) hypertension; K70.10 Alcoholic hepatitis without ascites; F32.9 Major depressive disorder, single episode, unspecified; Z68.34 Body mass index [BMI] 34.0-34.9, adult; J96.90 Respiratory failure, unspecified, unspecified whether with hypoxia or hypercapnia; Y90.0 Blood alcohol level of less than 20 mg/100 ml; Z79.52 Long term (current) use of systemic steroids; Z92.3 Personal history of irradiation; Z95.5 Presence of coronary angioplasty implant and graft; K72.00 Acute and subacute hepatic failure without coma; E87.1 Hypo-osmolality and hyponatremia; I48.91 Unspecified atrial fibrillation; M54.9 Dorsalgia, unspecified; W10.9XXA Fall (on) (from) unspecified stairs and steps, initial encounter; R51.9 Headache, unspecified; Z79.899 Other long term (current) drug therapy; F17.210 Nicotine dependence, cigarettes, uncomplicated